=== PATIENT | female | born 1960 | race Caucasian/White ===

== ENCOUNTER 2016-10-25 09:58 | Outpatient (CLI) | payer MEDICARE, OTHER ==
--- NOTE | 2016-10-29 07:28 | Mammography Report ---
DIGITAL BILATERAL SCREENING MAMMOGRAM: 10/25/2016 CLINICAL HISTORY: A 56-year-old female in for routine screening mammogram. Patient has no family hi story of breast cancer. Patient has had no prior breast surgeries. COMPARISON: 07/11/2010, 07/21/2012, 09/06/2015 TECHNIQUE: Craniocaudad and oblique lateral views of each breast were obtained with [employer] digital mammography. FINDINGS: Breasts are almost entirely composed of fat. Several benign-appearing calcifications are once again seen in the upper half of the left breast. They are minimally progressive as compared to preceding exams but still maintain their benign configuration. No significant masses are noted in the breasts. IMPRESSION: BREASTS APPEAR RADIOGRAPHICALLY BENIGN. BIRADS 2 - BENIGN. RECOMMENDATIONS: Annual bilateral screening mammography. STANDARD QUALIFYING STATEMENTS 1. This examination was reviewed with the aid of Computer-Aided Detection (CAD). 2. A negative or benign imaging report should not delay biopsy if clinically suspicious findings are present. Consider surgical consultation if warranted. More than 5% of cancers are not identified by i maging. 3. Dense breasts may obscure an underlying neoplasm. JOB #: [id number] EXT JOB #:[id number]
== END 2016-10-25 09:59 | disposition home or self-care (01) ==
LOC: DI 09:58
PROVIDERS: ATTEND Family Medicine
DX: Z12.31 Encounter for screening mammogram for malignant neoplasm of breast (principal)
CPT/HCPCS: 77067

== ENCOUNTER 2017-05-22 09:30 | Outpatient (CLI) | payer MEDICARE, OTHER | END 2017-05-22 23:59 | LOC: DI 09:30 | PROVIDERS: ATTEND Internal Medicine Hematology & Oncology | DX: C90.00 Multiple myeloma not having achieved remission (principal) | CPT/HCPCS: 94010 ==

== ENCOUNTER 2017-10-29 16:15 | Inpatient (IN) | payer MEDICARE, OTHER ==
--- NOTE | 2017-10-29 18:42 | ED Physician Documentation ---
PD HPI ABD PAIN - Stated complaint Stated Complaint: ABD PX - Chief complaint Chief Complaint: Abd Pain - History obtained from History obtained from: Patient - History of Present Illness Timing - onset: How many days ago (few) Timing - duration: Days (few) Timing - details: Gradual onset, Still present (has had SBO intermittently, last in Jul treated with meds/nonsurgical. Has seen surgery at and they plan to do surgery to remove strictures next month or so. Seen in [facility] clinic today and had plain xray showing likely abstruction again.) Quality: Cramping, Aching, Fullness/distended Location: All over / everywhere Improved by: Vomiting Worsened by: Eating Associated symptoms: Nausea, Vomiting, Constipation (has not had BM the past 3 days), Loss of appetite. No: Fever, Diarrhea Similar symptoms before: Diagnosis (SBO due to strictures and adhesions secondary to surgery and RT.) Review of Systems Constitutional: denies: Fever, Chills Nose: denies: Rhinorrhea / runny nose, Congestion Throat: denies: Sore throat Respiratory: denies: Cough GI: reports: Abdominal Pain, Abdominal Swelling, Nausea, Vomiting. denies: Diarrhea, Bloody / black stool : denies: Dysuria, Frequency Skin: denies: Rash, Lesions Musculoskeletal: denies: Neck pain, Back pain Neurologic: reports: Generalized weakness. denies: Focal weakness, Numbness Endocrine: denies: Weight loss Immunocompromised: denies: Immunocompromised PD PAST MEDICAL HISTORY - Past Medical History Cardiovascular: Hypertension Respiratory: Shortness of breath Endocrine/Autoimmune: None GI: Other : None HEENT: None Psych: None Musculoskeletal: Fatigue, Chronic back pain Derm: Other - Past Surgical History Past Surgical History: Yes General: Colonoscopy /LVN LPN: Tubal ligation - Present Medications Home Medications: Ambulatory Orders Medication Instructions Recorded Confirmed Metoprolol Succinate [Toprol Xl] 50 mg PO DAILY PM 03/08/13 10/06/17 Multivitamin [Multivitamins] 1 each PO DAILY 03/08/13 10/06/17 valACYclovir [Valtrex] 500 mg PO BID 03/08/13 10/06/17 oxyCODONE [Roxicodone] 5 - 10 mg PO Q6HR PRN 05/10/13 10/06/17 Atorvastatin Calcium [Lipitor] 20 mg PO DAILY 12/14/13 10/06/17 Zinc Sulfate 280 mg PO DAILY 12/14/13 10/06/17 Sertraline HCl [Zoloft] 75 mg PO QPM 02/21/14 10/06/17 Cyanocobalamin/Folic Acid [Vitamin 1,000 mcg ORAL DAILY 09/05/14 10/06/17 O29-Eeyoo Acid Tablet] Ascorbic Acid [C-1000] 500 mg PO DAILY 02/20/15 10/06/17 Folic Acid 1 mg PO DAILY 02/20/15 10/06/17 LORazepam [Ativan] 0.1 - 1 mg PO Q6HR PRN 02/20/15 10/06/17 Ondansetron HCl [Zofran] 8 mg PO Q8HR PRN 02/20/15 10/06/17 Sulfamethoxazole/Trimethoprim 1 each PO DAILY 02/20/15 10/06/17 [Bactrim Ds Tablet] Cholecalciferol (Vitamin D3) 2 tab PO DAILY 06/07/15 10/06/17 [Vitamin D-3] Morphine Sulfate [Ms Contin] 30 mg PO Q12H 11/13/15 10/06/17 Dexamethasone [Decadron] 5 mg PO ONCE 02/05/16 10/06/17 Albuterol Sulf [Ventolin Hfa 2 puffs INH Q4HR PRN 04/22/16 10/06/17 Inhaler] Diphenoxylate/Atropine [Lomotil] 2.5 mg PO 5XD PRN 09/16/16 10/06/17 Lisinopril 10 mg PO DAILY 09/16/16 10/06/17 predniSONE [Prednisone] 7.5 mg PO DAILY MDD 6/5 taper in 11/11/16 10/06/17 place Morphine Sulfate 1 - 2 tab PO Q4H PRN 04/07/17 10/06/17 Ciprofloxacin HCl [Cipro] 500 mg PO BID MDD x 7 days, RX 10/15/17 10/15/17 - Allergies Allergies/Adverse Reactions: Allergies Allergy/AdvReac Type Severity Reaction Status Date / Time ceftazidime Allergy Rash Verified 05/07/14 23:41 doxorubicin HCl pegylated Allergy Hives Verified 05/07/14 23:41 lipo... * [From Doxil] doxycycline Allergy Rash Verified 05/07/14 23:41 acetaminophen [From Vicodin] AdvReac Nausea Verified 05/07/14 23:41 hydrocodone bitartrate * AdvReac Nausea Verified 05/07/14 23:41 [From Vicodin] adhesive tape Allergy Rash Uncoded 05/07/14 23:41 - Social History Does the pt smoke?: No Smoking Status: Never smoker Does the pt drink ETOH?: No Does the pt have substance abuse?: No - Family History Family history: reports: Non contributory - Immunizations Immunizations are current?: Yes - POLST Patient has POLST: Yes POLST Status: Full Code PD ED PE NORMAL - Vitals Vital signs reviewed: Yes - General General: Alert and oriented X 3, Well developed/nourished - HEENT HEENT: Atraumatic, PERRL (nonicteric), Moist mucous membranes, Pharynx benign - Neck Neck: Supple, no meningeal sign, No adenopathy - Cardiac Cardiac: RRR, No murmur - Respiratory Respiratory: Clear bilaterally - Abdomen Abdomen: No organomegaly, Other (distended with hyperactive BS, general tenderness and firmness. no hernias. ) - Female Female : Deferred - Rectal Rectal: Deferred - Back Back: No CVA TTP - Derm Derm: Normal color - Extremities Extremities: No deformity, No tenderness to palpate, Normal ROM s pain, No edema , No calf tenderness / cord - Neuro Neuro: Alert and oriented X 3, No motor deficit, Normal speech Results - Vitals Vitals: Vital Signs - 24 hr 10/29/17 16:24 Temperature 36.5 C Heart Rate 79 Respiratory 18 Rate Blood Pressure 118/82 H O2 Saturation 98 Oxygen O2 Source Room air - Labs Labs: Laboratory Tests 10/29/17 10/29/17 10/29/17 19:30 19:30 19:30 WBC 11.7 H RBC 3.64 L Hgb 11.1 L Hct 35.2 L MCV 96.7 MCH 30.7 MCHC 31.7 L RDW 17.6 H Plt Count 633 H MPV 6.7 L Neut # 7.1 H Lymph # 3.2 [place] # 1.1 H Eos # 0.2 Baso # 0.1 Absolute Nucleated RBC 0.00 Nucleated RBC % 0.0 Sodium 133 L Potassium 3.6 Chloride 104 Carbon Dioxide 22 Anion Gap 7.0 BUN 18 Creatinine 0.9 Estimated GFR (MDRD) 64 L Glucose 88 Lactic Acid 0.9 Calcium 8.5 Total Bilirubin 0.6 AST 15 ALT 12 Alkaline Phosphatase 38 L Total Protein 6.4 L Albumin 3.5 Globulin 2.9 Albumin/Globulin Ratio 1.2 Lipase 69 H - Rads (name of study) abd CT Radiology: Prelim report reviewed (small bowel obstruction with stricture in mid abd. ), EMP read contemporaneously PD MEDICAL DECISION MAKING - ED course Complexity details: reviewed results (bowel obstruction. Hospitalist/[facility] clinic provider had talked with and they did not have beds, so directed initial treatment to be here and then transfer for surgery if not improved nonsurgically. ), considered differential, d/w patient Departure - Departure Disposition: 66 [facility] DC/Xfer Clinical Impression: Small bowel obstruction, partial Abdominal pain Qualifiers: Abdominal location: generalized Qualified Code(s): R10.84 - Generalized abdominal pain Condition: Stable Discharge Date/Time: 10/29/17 21:28
[2017-10-29] MEDS ORDERED: ONDANSETRON 4 MG/2 ML VIAL IVP STA (19:03)
[2017-10-29] MEDS ORDERED: SODIUM CHLORIDE 0.9% 1,000 ML IV ONE ×2 (19:03→19:05)
[2017-10-29] MEDS ORDERED: MORPHINE 10 MG/ML VIAL IVP STA (19:04)
[2017-10-29 19:41] LABS: BASOPHILS # (AUTO) 0.1 10^3/uL (0.0-0.1); BASOPHILS % (AUTO) 0.8 %; EOSINOPHILS # (AUTO) 0.2 10^3/uL (0.0-0.7); EOSINOPHILS % (AUTO) 1.3 %; HGB - HEMOGLOBIN 11.1 g/dL (12.0-16.0); LYMPHOCYTES # (AUTO) 3.2 10^3/uL (1.5-3.5); LYMPHOCYTES % (AUTO) 27.7 %; MEAN CORPUSCULAR HEMOGLOBIN 30.7 pg (27.0-31.0); MEAN CORPUSCULAR HGB CONC 31.7 g/dL (32.0-36.0); MEAN CORPUSCULAR VOLUME 96.7 fL (81.0-99.0); MEAN PLATELET VOLUME 6.7 fL (7.9-10.8); MONOCYTES # (AUTO) 1.1 10^3/uL (0.0-1.0); MONOCYTES % (AUTO) 9.5 %; NEUTROPHILS # (AUTO) 7.1 10^3/uL (1.5-6.6); NEUTROPHILS % (AUTO) 60.7 %; PLT - PLATELET COUNT 633 10^3/uL (130-450); RED BLOOD COUNT 3.64 10^6/uL (4.20-5.40); RED CELL DISTRIBUTION WIDTH 17.6 % (12.0-15.0); WHITE BLOOD COUNT 11.7 x10^3/uL (4.8-10.8)
[2017-10-29 19:52] LABS: ALBUMIN 3.5 g/dL (3.2-5.5); ALBUMIN/GLOBULIN RATIO 1.2 (1.0-2.2); BILIRUBIN,TOTAL 0.6 mg/dL (0.2-1.0); CALCIUM 8.5 mg/dL (8.5-10.3); CREATININE 0.9 mg/dL (0.4-1.0); TOTAL PROTEIN 6.4 g/dL (6.7-8.2)
[2017-10-29] MEDS ORDERED: LIDOCAINE VISCOUS 2% 15 ML UDC MM STA (20:03)
[2017-10-29] MEDS ORDERED: OXYMETAZOLINE NASAL SPRAY NAS STA (20:03)
[2017-10-29] MEDS ORDERED: LIDOCAINE JELLY 2% 5 ML TUBE TOP STA (20:03)
--- NOTE | 2017-10-29 20:26 | CT Report ---
EXAM: CT ABDOMEN AND PELVIS EXAM DATE: 10/29/2017 07:43 PM. CLINICAL HISTORY: Abd bloating and vomiting. COMPARISONS: 07/30/2017. TECHNIQUE: Routine helical CT imaging was performed through the abdomen and pelvis. IV contrast: No. Enteric contrast: No. Reconstructions: Coronal and sagittal. In accordance with CT protocol optimization, one or more of the following dose reduction techniques w ere utilized for this exam: automated exposure control, adjustment of mA and/or KV based on patient s ize, or use of iterative reconstructive technique. FINDINGS: Lung Bases: Unremarkable. Liver: Normal in size and contour. Gallbladder/Bile Ducts: Unremarkable. Spleen: Normal in size. Pancreas: Normal. Adrenal Glands: Normal. Kidneys: There is a 2 mm lower pole left kidney stone. No hydronephrosis bilaterally. Peritoneal Cavity/Bowel: The stomach and duodenum appear normal in caliber. There are more multiple m arkedly dilated small bowel loops with small bowel air-fluid level. There is an anterior right mid ab domen small bowel loop measuring up to 5.1 cm in diameter which previously measured 6.6 cm in diamete r. Overall, the degree of small bowel dilation is decreased. There is a thickened segment of small minerva wel in the right central abdomen on series 3 image 43. This segment of bowel demonstrates luminal osmel rowing and measures 4-5 cm in length. No free air or abscess. Pelvic Organs: Urinary bladder appears unremarkable. Vasculature: There is moderate atherosclerotic vascular calcification. Bones: There are compression fractures of T11, L1, L2, and L3 without significant interval change. Other: None. IMPRESSION: 1. Dilated small bowel loops with a small bowel stricture in the right central abdomen. The degree of small bowel dilation is less when compared to 07/30/2017. 2. No bowel perforation or abnormal fluid collection. 3. Nonobstructing left kidney stone. 4. Multiple compression fractures of the spine, unchanged. [facility] Referring Provider Line: [phone] SITE ID: [id number]
[2017-10-29] MEDS ORDERED: ONDANSETRON ODT 4 MG TABLET TL PRN (20:32)
[2017-10-29] MEDS ORDERED: SODIUM CHLORIDE FLUSH 0.9% 10 ML SYRINGE IVP PRN (20:32)
--- NOTE | 2017-10-29 21:44 | XRAY Report ---
EXAM: CHEST RADIOGRAPHY EXAM DATE: 10/29/2017 09:29 PM. CLINICAL HISTORY: NG tube placement. COMPARISON: None. TECHNIQUE: 1 view. FINDINGS: Lungs/Pleura: There is a calcified granuloma in the right upper lobe. Otherwise lungs clear. No pneum othorax. Mediastinum: Within exam limitations, the cardiomediastinal contour is normal. Other: Gastric tube tip is in the mid stomach. IMPRESSION: Gastric tube tip in mid stomach [facility] Referring Provider Line: [phone] SITE ID: [id number]
--- NOTE | 2017-10-29 21:44 | XRAY Preliminary Report ---
Exam: XR CHEST FOR LINE PLACEMENT IMPRESSION: Gastric tube tip in mid stomach [facility] SITE ID: [id number]
[2017-10-29] MEDS: MORPHINE 2 MG/ML SYRINGE IVP PRN ×2 (21:54→23:36)
[2017-10-29] MEDS: SODIUM CHLORIDE 0.9% 1,000 ML IV SCH (21:56)
[2017-10-29] MEDS: METOPROLOL SUCCINATE 25 MG TABLET PO SCH (22:00)
[2017-10-29] MEDS: SERTRALINE 50 MG TABLET PO SCH (22:00)
[2017-10-29] MEDS: ONDANSETRON 4 MG/2 ML VIAL IVP PRN (23:38)
[2017-10-30] MEDS: MORPHINE PCA 50 MG IV PRN ×4 (00:22→22:32)
[2017-10-30] MEDS: SODIUM CHLORIDE FLUSH 0.9% 10 ML SYRINGE IVP SCH ×4 (00:47→23:47)
[2017-10-30] MEDS: ONDANSETRON 4 MG/2 ML VIAL IVP PRN (06:41)
[2017-10-30] MEDS: SODIUM CHLORIDE 0.9% 1,000 ML IV SCH (06:41)
[2017-10-30] MEDS: PANTOPRAZOLE 40 MG VIAL IVP SCH (06:41)
[2017-10-30] MEDS: POLYETHYLENE GLYCOL 3350 17 GM PACKET PO SCH (07:54)
--- NOTE | 2017-10-30 09:05 | XRAY Report ---
SUPINE ABDOMEN: 10/30/2017 CLINICAL INDICATION: Bowel obstruction followup. FINDINGS: Supine view of the abdomen demonstrates a nasogastric tube terminating in the stomach. There has been slight improvement in distal small bowel dilatation. No abnormal calcifications are appreciated overlying either renal shadow. IMPRESSION: SLIGHT INTERVAL IMPROVEMENT IN DISTAL SMALL BOWEL DILATATION. NASOGASTRIC TUBE TERMINATING IN THE STOMACH. TD: 10/30/2017 08:42
[2017-10-30] MEDS: ENOXAPARIN 40 MG/0.4 ML SYRINGE SUBQ SCH (09:19)
--- NOTE | 2017-10-30 09:40 | HISTORY & PHYSICAL EXAMINATION ---
DATE OF SERVICE: 10/29/2017 Physician: Radha Young MD PRIMARY CARE PROVIDER: Dr. Sadie Bingham. ONCOLOGIST: Dr. Leighton Lorenz. ADMITTING PROVIDER: Dr. Radha Young. CHIEF COMPLAINT: Nausea, vomiting, abdominal pain in a patient with known recurrent small-bowel obstructions. HISTORY OF PRESENT ILLNESS: The patient is a very unfortunate 57-year-old female who is suffering the complications of a very complicated past medical history. She has had multiple myeloma with treatment, hypogammaglobulinemia, and has lfyxm-dzogmi-vvre disease , which has resulted in long-term steroid use after being on drugs such as cyclosporine, tacrolimus, sirolimus. She is still getting active therapy for her multiple myeloma and is followed by Dr. Leighton Lorenz. While being treated for her multiple myeloma, she developed symptoms of nausea, vomiting, and abdominal pain in September 2016. She was diagnosed as having a short segment of inflamed bowel in the small bowel resulting in partial small-bowel obstruction. The patient said that she has never been hospitalized for bowel obstructions up until now, today. She would have an infrequent episode of nausea, vomiting, and abdominal pain, no flatus, and it would gradually resolve if she stopped eating. Usually it would take 2 days, and at the very most it would take 4 days to resolve on its own. She has never developed fever , chills, or bloody diarrhea with this. The episodes would happen infrequently enough that it did not limit her life very much, but in the last 6 months she feels like she is having recurrent episodes more and more frequently, with less and less downtime of good days. She laments that she has had episodes on , , and s . She almost laughs and says it is happening on all of the major holidays. With this current episode, it started as usual. Nausea, generalized epigastric to mid abdominal pain. Emesis. No bowel movement, but she is able to have flatus. By day 4, however, it still had not gone away and seemed to be getting worse. This is, by far, the longest it has ever been and definitely the most painful. She is in the process of being evaluated by [facility] to have an elective lysis of adhesion with possible ileostomy; but she is awaiting authorization from her insurance company for all of this to happen. She went to the [facility] today and was evaluated by BRENDA Myers. KUB was done. She has multiple dilated small loops in the right lower quadrant compatible with small-bowel obstruction. This was not compared to any other previous films. Because the patient appeared to be worse than usual, she was sent to the emergency room. The emergency room CAT scan shows stomach and duodenum to be normal. She has more multiple, markedly dilated small-bowel loops with small-bowel air-fluid levels than she did 07/30/2017. There is an anterior right mid abdominal small-bowel loop measuring up to 5.1 cm in diameter which was previously 6.6 cm, but overall the degree of small-bowel dilation is worse. There are thickened segments of small bowel in the right central abdomen. This segment of bowel also shows luminal narrowing and measures 4-5 cm in length. No free air or abscesses. Incidentally, she has a left pole left kidney stone that is 2 mm, moderate atherosclerotic vascular calcifications; and compression fractures of T11, L1, L2, and L3 without any interval change from before. She does not have a fever, where her temperature is 36.5 and her white cell count, while elevated, is better than it was in September 2017. Today she is 11.7, and before she was 17.1. She is now admitted for small-bowel obstruction. BRENDA Myers, has already spoken to [facility]. They recommend that we keep the patient here, put an NG in her, and wait it out. If it looks like she is going to have to go to surgery, then they would reconsider and take her in transfer for the planned surgery that now becomes urgent as opposed to elective. The patient says that she just finished antibiotics with Cipro and Flagyl for this most recent bout. She also states that she takes her medicines with small sips of water, says she still manages to keep her MS Contin and her other drugs, such as sertraline, metoprolol, and lisinopril, down. She has learned the trick. PAST MEDICAL HISTORY 1. IgG kappa multiple myeloma diagnosed in September 2011. Therapies have included RVD, Velcade/Doxil/dexamethasone, carfilzomib/Cytoxan/dexamethasone, VRD PACE, and then transplant therapy. She did an autologous bone marrow transplant in August 2012. She failed that and underwent an HLA matched unrelated donor stem cell transplant 11/17/2012. She is currently on daratumumab/Decadron since February 2016. Achieved initial serologic remission. 2. 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 It has involved her skin, mouth, and stomach. Treatment has included cyclosporine, prednisone, dexamethasone, budesonide, beclomethasone, tacrolimus, and sirolimus. The patient says that, other than the prednisone, she is not taking anything else for her qgcsn-ohcewv-tagq disease. It is felt that her scdyl-poeoih-ezih disease is what has caused her bowel adhesions and the multiple small-bowel obstructions, apparently. 3. Multiple myeloma-related compression fractures. She is on MS Contin 30 mg p.o. q.12 hours and has been stable with her use since 2012. She occasionally takes oxycodone for breakthrough pain. This has resulted in severe chronic back pain. 4. History of iron and B12 deficiencies. Used to require quite a bit of supplement. That has resolved. 5. Osteopenia. No biphosphate infusions due to dental issues. 6. Streptococcus pneumonia with bacteremia in January 2013. 7. MRSA bacteremia in August 2012. 8. Hypertension. 9. Pulmonary embolism in 2011. 10. Hyperlipidemia. 11. Hepatitis A during childhood. 12. G2, P2, status post tubal ligation in 1985. 13. Gastroesophageal reflux disease. 14. Cataracts. 15. Mild anemia and thrombocytopenia from antibody reaction due to her transplant. 16. Intermittent acute kidney injury. Baseline creatinine is 0.9, 0.8. At times with dehydration and drugs, creatinine will creep up to 1.1-1.3. Currently stable at 0.9. MEDICATION ALLERGIES 1. CEFTAZIDIME, WHICH CAUSES A RASH. 2. DOXORUBICIN GIVES HER HIVES. 3. DOXYCYCLINE GIVES HER A RASH. 4. ACETAMINOPHEN GIVES HER NAUSEA. 5. HYDROCODONE GIVES HER NAUSEA. 6. ADHESIVE TAPE WILL GIVE HER A RASH. HOME MEDICATIONS 1. Valacyclovir 500 mg p.o. b.i.d. for prophylaxis since 2011. 2. Bactrim double strength p.o. daily for prophylaxis since 2011. 3. Prednisone 7.5 mg p.o. daily. 4. Oxycodone 5 mg tablet 1-2 tablets every 6 hours as needed for pain. 5. Zinc sulfate 280 mg daily. 6. Sertraline 75 mg daily. 7. Zofran 8 mg p.o. q.8 hours p.r.n. nausea. 8. A multivitamin daily. 9. MS Contin 30 mg p.o. q.12 hours. 10. Metoprolol succinate 50 mg p.o. daily in the evening. 11. Lisinopril 10 mg daily. 12. Ativan 0.5-1 mg tablet every 6 hours as needed for anxiety. 13. Folic acid 1 mg daily. 14. Lomotil 2.5 mg p.o. up to 5 times a day as needed for diarrhea. 15. A multivitamin with B12, folic acid 1000 mcg oral daily. 16. Vitamin D 2000 international units 2 tablets daily. 17. Lipitor 20 mg daily. 18. Vitamin C one 500 mg tablet daily. 19. Ventolin HFA inhaler 2 puffs every 4 hours as needed for asthma. SOCIAL HISTORY: She currently lives in her own home. Mom moved in with her about a year ago. Prior to mom moving in with her, her daughter lived with her for awhile as well. It has worked out okay. She has hired in-home support to take care of her mom 5 days a week. The relationship is good, and it is not stressing her out. 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 She has not worked in the adult family home since 2011. She has been twice. Her power of user acceptance tester is her oldest daughter, but she thinks that the actual time spent on the last power of user acceptance tester has run out. She will need to do a new one, but she is telling me that she is her advocate. She started smoking at the age of 13 and quit in 2008 and was a [id number] smoker. She never had a problem with alcohol abuse and rarely drinks. She has never done recreational substance abuse and specifically has never done cannabis, cocaine, heroin, LSD, methamphetamines. She describes herself as still independent. She drives, bathes herself, feeds herself, pays her own bills, does light housework around the house. In between episodes, the only thing that limits her is her back pain, so she cannot lift a lot of things or do a lot of heavy work, but she feels that she can lead a normal life in spite of all of this. FAMILY HISTORY: Mom is in her 90s and has had some small strokes, so she is a little forgetful and needs a little bit of help. Dad at age 51 of myocardial infarctions. Her brothers are completely healthy. She has no sisters. Her 2 daughters are completely healthy. REVIEW OF SYSTEMS CONSTITUTIONAL: At this point, she does not have any constitutional complaints of unexpected weight changes, fevers, sweats, but her quality of life is markedly diminished in the last 6 months. She is understandably frustrated that she feels the ball has been dropped in her case. Although she has been seen by GI at , somehow things have not moved forward, and she is just suffering more and more from her abdominal pain. EARS, NOSE, AND THROAT: She has problems with her teeth, and as such, foods can bother her with regard to chewing. In the past, she has had thrush, but right now there are no problems with swallowing, mouth pain. She denies blurred vision, headaches, change in hearing. No facial dysesthesia. PULMONARY: She denies coughing, wheezing, shortness of breath, chest congestion. Has not had to use her inhaler in quite some time. CARDIAC: Denies PND, orthopnea, chest pain, palpitations. GASTROINTESTINAL: As above. GENITOURINARY: Occasional incontinence but no urgency, frequency, dysuria, hematuria. JOINTS: Back pain definitely limits her. Occasionally, she has stiff hips and knees, but there are no new effusions. No new joint pain. SKIN: She used to bruise much more easily in the past, depending on which immune-modulating drugs she was on. She still has a tendency to bruise, but it has improved much better as her steroids have been tapered. She used to have chronic zgsbz-ckkzjq-mrpw of her skin, and now it is mainly GI tract that they feel is involved. PSYCHIATRIC: Frustration more than anything else. Denies suicidal ideation, hallucinations. Depression is kind of a low-grade chronic thing for her and controlled with Zoloft. Even though chronic pain is part of her daily life, she has managed to have a decent quality of life in spite of it. ENDOCRINE: She denies polyuria, polydipsia, polyphagia. CENTRAL NERVOUS SYSTEM: Denies seizure, syncope, memory loss. She denies any focal deficits. PHYSICAL EXAMINATION She is seen in the emergency room. I am seeing her after she has already had her CT, NG placed, some antiemetics and IV pain medications. She is still having waves of abdominal pain with spasming that causes her to almost cry out. The NG tube is also driving her crazy. She says that she knows it is crazy, but she can almost feel the tip stabbing her anterior abdominal wall, and it is causing quite a bit of stabbing epigastric pain. VITAL SIGNS: Temperature is 36.5, pulse is 76, blood pressure is 137/73, respiration is 18. She is 99% on room air. GENERAL: On general review, she is a thin, alert, oriented white female who is miserable from pain but looks stated age. HEAD AND NECK: Dry lips, NG in the right naris. Pupils reactive. Sclerae nonicteric. No facial asymmetry. Slightly nasal tone of voice because of the NG in place, but speech is normal. Neck is supple without goiter or adenopathy. LUNGS: Clear to auscultation and percussion without crackles, rhonchi, or wheezing, and there is no increased respiratory effort to talk to me. CARDIAC: Regular rate and rhythm with no murmurs, rubs, or gallops. ABDOMEN: Distended, infrequent high-pitched bowel sounds. Diffusely tender but more in the right lower quadrant than the left lower quadrant. No rebound or guarding. EXTREMITIES: No clubbing, cyanosis, or edema; and overall she has decreased muscle mass in the arms, legs. NEUROLOGIC: She is alert and oriented to person, place, and time. Cranial nerves II-XII intact. No focal deficits. CT of the abdomen and KUB from today already discussed. LABORATORY DATA: White cell count is 11.7. Hemoglobin 11.1. It is down from her usual 13.1. Hematocrit is 35.2. Platelets are 633 and about stable. She varies from 588 to 616. She has a slight left shift. Sodium 133. Usual sodium 135. Potassium is 3.6. Anion gap is 7. BUN 18, creatinine 0.9, glucose 88. Lactic acid 0.9. Lipase 69. ASSESSMENT AND PLAN 1. Recurrent small-bowel obstruction, partial. Source of it is felt to be adhesions from uhhnt-bvbape-fxde disease. She is being monitored by her oncologist and has had consultation at [facility]. Current plan is for elective surgery down the road if she does not become urgently or emergently obstructed now. 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 Plan: a. Admit the patient to medical/surgical status, acute inpatient. b. Attestation: The patient will be admitted less than 96 hours. c. Nasogastric tube to low intermittent suction. d. Daily KUB, to follow any response. e. If after 48 hours she still has not responded, we may reconsider and ask for transfer to [facility]. In the meantime, if she spikes a fever or drops her pressure and becomes more symptomatic from this bowel obstruction, she will be placed on IV antibiotics, and will consider immediate transfer. f. I hesitate to involve our local surgeons. This case has already been looked at locally, and they feel that she is beyond the ability for them to take care of her here. Since we have a plan, and a surgeon has been contacted, I will hold off on consulting surgery here. g. Keep n.p.o. except for ice chips and medicines with sips and nasogastric tube clamped. h. Pain will be monitored and morphine used as well as Zofran, Phenergan, Compazine. 2. Hypertension. Currently well controlled in the emergency room. It is amazing that she has been able to keep her medications down. She says she has learned the hard way over the last few years of just waiting it out, taking a small sip of water with her pills, and doing nothing for a few hours until she knows the medicines are going to stay down. Here, I will give her her metoprolol p.o. If it looks like she keeps on vomiting, or it is not working, will switch her metoprolol to IV and her lisinopril to enalapril IV. In the meantime, no change in doses. 3. Chronic dkbsu-hsogmc-jjrn disease. Currently, only on steroids, down to a tapering of 7.5 mg p.o. daily of prednisone. Change to Solu-Medrol 40 mg IV push daily. 4. History of pulmonary embolism in 2011. As such, deep venous thrombosis prophylaxis is definitely to be considered. Because of her high risk, she will be on Lovenox 40 mg subcutaneously daily. 5. Chronic pain syndrome. She has been stable with her use of MS Contin in the past. At this time, I will switch her to IV morphine; 2 mg IV q.2 hours will be ordered for as -needed pain. Consider increasing dose if this is ineffective. 6. History of gastroesophageal reflux disease. Protonix IV. 7. FULL CODE STATUS. She says that she has not considered do not resuscitate status. So far, she has responded to all of her treatments, and she is alive far longer than she thought she would be, so she still wants everything done. TD: 10/29/2017 22:27 MTDD
[2017-10-30] MEDS ORDERED: METHYLNALTREXONE 12 MG/0.6 ML VIAL SUBQ ONE (13:58)
[2017-10-30] MEDS ORDERED: SODIUM CHLORIDE 0.9% 1,000 ML IV SCH (13:59)
--- NOTE | 2017-10-30 14:01 | PROVIDER PROGRESS NOTE ---
Subjective - Prog Note Date Prog Note Date: 10/30/17 Prog Note Time: 14:00 - Subjective Pt reports feeling: Improved Subjective: Karen states that she feels so much better than when she first presented to the ED. She requests that the NG tube comes out. She denies SOB, chest pain, N /V or a new cough. Current Medications - Current Medications Current Medications: Active Medications Enoxaparin Sodium (Lovenox) 40 mg SUBQ DAILY [facility] Last Admin: 10/30/17 09:19 Dose: 40 mg Sodium Chloride (Normal Saline 0.9%) 1,000 mls @ 50 mls/hr IV .Q20H [facility] Methylnaltrexone [place] (Relistor) 8 mg SUBQ ONCE ONE Stop: 10/30/17 13:59 Metoprolol Succinate (Toprol Xl) 50 mg PO HS [facility] Last Admin: 10/29/17 22:00 Dose: 50 mg Morphine Sulfate (Morphine) 2 mg IVP Q2H PRN PRN Reason: Pain 8 to 10 Last Admin: 10/29/17 23:36 Dose: 2 mg Morphine Sulfate/Sodium Chloride (Morphine Wholesale Representative (Use Wholesale Representative Order Set)) 50 mg IV INDUSTRIAL COOK PRN; Protocol PRN Reason: PAIN Last Admin: 10/30/17 07:29 Dose: 50 mg Ondansetron HCl (Zofran Inj) 4 mg IVP Q6HR PRN PRN Reason: Nausea / Vomiting Last Admin: 10/30/17 06:41 Dose: 4 mg Ondansetron HCl (Zofran Odt) 4 mg TL Q6HR PRN PRN Reason: Nausea / Vomiting Pantoprazole Sodium (Protonix) 40 mg IVP QDAC [facility] Last Admin: 10/30/17 06:41 Dose: 40 mg Polyethylene Glycol (Miralax) 17 gm PO DAILY [facility] Last Admin: 10/30/17 07:54 Dose: Not Given Sertraline HCl (Zoloft) 75 mg PO QPM [facility] Last Admin: 10/29/17 22:00 Dose: 75 mg Sodium Chloride (Normal Saline Flush 0.9%) 10 ml IVP PRN PRN PRN Reason: NEEDED PER PROVIDER ORDERS Last Admin: 10/30/17 06:42 Dose: 10 ml Sodium Chloride (Normal Saline Flush 0.9%) 10 ml IVP 0100,0900,1700 [facility] Last Admin: 10/30/17 09:20 Dose: 10 ml Metoprolol Succinate [Toprol Xl] 50 mg PO DAILY PM 03/08/13 Multivitamin [Multivitamins] 1 each PO DAILY 03/08/13 valACYclovir [Valtrex] 500 mg PO BID 03/08/13 Atorvastatin Calcium [Lipitor] 20 mg PO QPM 12/14/13 Zinc Sulfate 220 mg PO DAILY 12/14/13 Sertraline HCl [Zoloft] 75 mg PO QPM 02/21/14 Ascorbic Acid [C-1000] 500 mg PO DAILY 02/20/15 Folic Acid 1 mg PO DAILY 02/20/15 LORazepam [Ativan] 1 mg PO Q6HR PRN 02/20/15 Ondansetron HCl [Zofran] 8 mg PO Q8HR PRN 02/20/15 Sulfamethoxazole/Trimethoprim [Bactrim Ds Tablet] 1 each PO QPM 02/20/15 Cholecalciferol (Vitamin D3) [Vitamin D-3] 1,000 unit PO DAILY 06/07/15 Morphine Sulfate [Ms Contin] 30 mg PO Q12H 11/13/15 Dexamethasone [Decadron] 20 mg PO DAILY PRN 02/05/16 Albuterol Sulf [Ventolin Hfa Inhaler] 2 puffs INH Q4HR PRN 04/22/16 Lisinopril 10 mg PO QPM 09/16/16 predniSONE [Prednisone] 5 mg PO DAILY 11/11/16 Cyanocobalamin (Vitamin B-12) [Vitamin B-12] 1,000 mcg PO DAILY 10/30/17 Objective - Vital Signs/Intake & Output Reviewed Vital Signs: Yes Vital Signs: Vital Signs x48h Temp Pulse Resp BP Pulse Ox 10/30/17 13:00 16 10/30/17 12:00 16 10/30/17 11:00 16 10/30/17 10:00 14 10/30/17 09:00 16 10/30/17 08:00 16 10/30/17 07:51 36.7 C 64 16 96/66 97 10/30/17 06:49 14 Intake & Output: Intake & Output 10/27/17 10/28/17 10/29/17 10/30/17 23:59 23:59 23:59 23:59 Intake Total 1100 875 Output Total 200 Balance 1100 675 - Objective General Appearance: positive: No acute distress, Alert Eyes Bilateral: positive: Normal inspection, PERRL ENT: positive: ENT inspection nml, Pharynx nml, Pharyngeal erythema, Dry mucous membranes Neck: positive: Nml inspection, Thyroid nml, Trachea midline, Stiff neck Respiratory: positive: Chest non-tender, No respiratory distress, Other ( diminished.) Cardiovascular: positive: Regular rate & rhythm, No gallop, Decreased pulse(s) Peripheral Pulses: 1+ Radial (R), 1+ Radial (L) Abdomen: positive: Non-tender, Abnml bowel sounds, Other (hyper active in upper quadrants, soft, bloated.) Back: positive: Nml inspection Skin: positive: No rash, Warm, Dry Extremities: positive: Non-tender, Full ROM, Pedal edema (mild-dependent.) Neurologic/Psychiatric: positive: Oriented x3, CN's nml (2-12), Motor nml, Sensation nml, Weakness, Depressed mood/affect Reflexes: Bicep (R): 3+, Bicep (L): 3+, Ankle (R): 3+, Ankle (L): 3+ - Lab Results Fish Bones: 10/31/17 11:00 10/31/17 11:00 - Diagnostic Imaging Diagnostic Imaging Results: positive: Final report reviewed Diagnostic Imaging Comments: SUPINE ABDOMEN: 10/30/2017 CLINICAL INDICATION: Bowel obstruction followup. FINDINGS: Supine view of the abdomen demonstrates a nasogastric tube terminating in the stomach. There has been slight improvement in distal small bowel dilatation. No abnormal calcifications are appreciated overlying either renal shadow. IMPRESSION: SLIGHT INTERVAL IMPROVEMENT IN DISTAL SMALL BOWEL DILATATION. NASOGASTRIC TUBE TERMINATING IN THE STOMACH. ABX Reporting Has patient been on IV antibiotics over the past 48 hours?: No Assessment/Plan - Problem List (1) Small bowel obstruction, partial Impression: This is recurrent. The source is likely adhesions from tqpic-jm-mdmw disease. She is being followed by oncology, and has an upcoming consultation at . She is planned to undergo elective surgery if she does not become emergently obstructed in the mean time. Serial KUBs have been done and as per last imaging , the partial SBO is improved. She remains with an NG to suction with very little out put. Her family brought her in a Latte which she tolerated well. Based on the absence of nausea or vomiting and improved clinical condition, we will plan to discontinue the NG tube. Plan: Monitor condition and follow up imaging in the AM. (2) Abdominal pain Impression: The patient notes that she has chronic abdominal pain, and continues on a morphine INDUSTRIAL COOK pump while inpatient. She was given one dose of Relistor for this. She admits to +flatus and her abdominal exam is normal with the exception of mild bloating. Plan: Continue INDUSTRIAL COOK overnight and plan to wean in the AM. Qualifiers: Abdominal location: generalized Qualified Code(s): R10.84 - Generalized abdominal pain (3) Mlvas-rfdjob-eqiq disease affecting skin and bowel, grade 2 Impression: She is followed by oncology and takes chronic steroids for this, that she has been tapering down. These were on hold due to partial SBO while inpatient and will be resumed upon discharge. She is under the care of Dr. Lorenz, oncology and also has multiple myeloma that is treated with IgG kappa. She has been treated with daratumumab/decadron since 02/2016. Plan: Continue care and update oncology as needed. (4) Hypertension Impression: The patient has a history of this and is prescribed lisinopril and metoprolol at home. Today, she was a little low at 100/68 and this is likely due to her INDUSTRIAL COOK. Plan: Continue to hold oral meds and monitor VS. (5) Chronic pain syndrome Impression: The patient has a history of osteopenia causing chronic back pain, which she takes chronic long acting morphine for. The oral form is now on hold and she has been on a morphine INDUSTRIAL COOK. Plan: Continue to monitor pain.
[2017-10-30] MEDS: SERTRALINE 50 MG TABLET PO SCH (20:25)
[2017-10-30] MEDS: METOPROLOL SUCCINATE 25 MG TABLET PO SCH (20:35)
[2017-10-30] MEDS: MORPHINE 2 MG/ML SYRINGE IVP PRN (23:46)
[2017-10-31] MEDS: MORPHINE PCA 50 MG IV PRN (04:06)
[2017-10-31] MEDS: PANTOPRAZOLE 40 MG VIAL IVP SCH (06:19)
[2017-10-31] MEDS: SODIUM CHLORIDE FLUSH 0.9% 10 ML SYRINGE IVP SCH (07:54)
[2017-10-31] MEDS: ENOXAPARIN 40 MG/0.4 ML SYRINGE SUBQ SCH (09:28)
[2017-10-31] MEDS: POLYETHYLENE GLYCOL 3350 17 GM PACKET PO SCH (09:30)
--- NOTE | 2017-10-31 10:11 | XRAY Report ---
EXAM: ABDOMEN RADIOGRAPHY EXAM DATE: 10/31/2017 06:14 AM. CLINICAL HISTORY: Bowel obstruction followup. COMPARISON: 10/30/2017. 10/29/2017. TECHNIQUE: 1 view. FINDINGS: Bowel Gas Pattern: Interval removal of orogastric tube. Increased gaseous distention of small bowel w ith the small bowel loops largely centrally located. No portal venous gas or pneumatosis. Other: Lung bases are clear. Levoscoliosis of the lumbar spine. Degenerative changes. IMPRESSION: 1. Worsening small bowel dilatation. 2. Interval removal of orogastric tube. [facility] Referring Provider Line: [phone] SITE ID: [id number]
--- NOTE | 2017-10-31 10:11 | XRAY Preliminary Report ---
Exam: XR ABDOMEN 1 VIEW X-RAY IMPRESSION: 1. Worsening small bowel dilatation. 2. Interval removal of orogastric tube. [facility] SITE ID: [id number]
[2017-10-31] MEDS ORDERED: ONDANSETRON ODT 4 MG TABLET PO PRN (10:20)
[2017-10-31] MEDS ORDERED: LORazepam 0.5 MG TABLET PO PRN (10:20)
[2017-10-31] MEDS ORDERED: DEXAMETHASONE 4 MG TABLET PO PRN (10:20)
[2017-10-31] MEDS ORDERED: METHYLNALTREXONE 12 MG/0.6 ML VIAL SUBQ ONE (10:22)
[2017-10-31] MEDS ORDERED: ASCORBIC ACID CHEW 500 MG TABLET PO SCH (10:30)
[2017-10-31] MEDS ORDERED: MULTIVITAMIN TABLET PO SCH (10:30)
[2017-10-31] MEDS ORDERED: MORPHINE ER 15 MG TABLET PO SCH (10:30)
--- NOTE | 2017-10-31 10:31 | Discharge Plan ---
Discharge Plan Disposition: 01 Home, Self Care Condition: Good Diet: Regular Activity Restrictions: Activity as Tolerated Shower Restrictions: No Driving Restrictions: No Weight Bearing: Full Weight Instruction Topics: Obstruction Sm Bowel, Atelectasis Additional Instructions or Follow Up instructions: You were admitted for a SBO (small bowel obstruction), put on a morphine LOCATION ANALYST, had an NG tube to suction and your symptoms were managed. You improved and follow up imaging did not show a resolution of the obstruction, so general surgery was called. Dr. Aden reviewed the imaging and pointed out that the x- rays may be a late sign to wellness. Since you clinically were improved, future imaging will likely follow. You were given a medication called Relistor (a peripherally acting MU opioid receptor antagonists) and other uses include opioid induced constipation, and chronic non-cancer pain. I have found in my practice that this really makes a difference for the resolution of bowel obstructions. I wanted you to know the name of this drug for future use. I may have been more strict about your stay (length of stay), but I would LOVE for you to enjoy your family while they are in town. You should see your PCP within one week and they will get a copy of my discharge summary. No Smoking: If you smoke, Please STOP! Call for help. Follow-up with: Sadie Bingham MD [Primary Care Provider] -
--- NOTE | 2017-10-31 10:34 | DISCHARGE SUMMARY ---
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 Spoke with general surgery regarding discharge. HTN (hypertension) (I10) chronic, stable. 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 History of pulmonary embolism (Z86.711) -chronic, not suspected. Chronic pain (G89.29) -chronic, stable. Non-traumatic compression fracture of vertebral column (M48.50XA) -chronic, stable. GERD (gastroesophageal reflux disease) (K21.9)- chronic, stable. - HPI History of Present Illness: Karen Gonzales is a 57-year old female with a past medical history of IgG kappa multiple myeloma since 2011, chronic rafmm-fo-nzjh disease, compression fractures d/t MM, iron and vitamin B12 deficiencies, osteopenia, strep PNA with bacteremia in 2012, MRSA bacteremia, HTN, pulmonary embolism, hyperlipidemia, Hep A in childhood, G2, P2, status post tubal ligation, GERD, cataracts, anemia , thrombocytopenia, and KASSANDRA. She was diagnosed as having a short segment of inflamed bowel in the small bowel resulting in a partial SBO. The patient said that she has never been hospitalized for this until now. She would have an infrequent episode of nausea, vomiting, and abdominal pain, no flatus, and it would gradually resolve if she stopped eating. Usually it would take 2-4 days. She has never developed fever, chills, or bloody diarrhea with this. In the past 6 months she feels like she is having recurrent episodes more frequently and fewer good days. With this current episode, it started as usual. Nausea, generalized epigastric to mid abdominal pain, emesis, less flatus and by day 4 had become worse. She is in the process of being evaluated by the to have an elective lysis of adhesion with possible ileostomy; but she is awaiting authorization from her insurance company for all of this to happen. She was in the [facility] clinic today to see Charu Atkinson who ordered a KUB, which showed multiple dilated small loops in the RLQ compatible with a SBO. Given that her symptoms were much worse this time, she was sent directly to the ED. Once in the ED a CT showed multiple dilated small bowel loops with small bowel air fluid and overall the degree of dilation was much worse. Also noted was compression fractures of T11, L1, L2, and L3. She was found to have an elevated temperature of 36.5, elevated WBC count of 11.7. She will be admitted to inpatient for decompression using an NG tube to wall suction, pain control using a morphine FLEET ADMINISTRATOR and further serial imaging. - HOSPITAL COURSE Hospital Course: The following diagnoses were prevalent during this hospital stay: (1) Small bowel obstruction, partial This is recurrent. The source is likely adhesions from ivfvd-ym-xktw disease. She is being followed by oncology, and has an upcoming consultation at . She is planned to undergo elective surgery if she does not become emergently obstructed in the mean time. Serial KUBs have been done and as per last imaging , the partial SBO is improved. She remains with an NG to suction with very little out put. Her family brought her in a Latte which she tolerated well, then she was put on clear liquids, full liquids and a general diet this AM. All of which, she tolerated well. Based on the absence of nausea or vomiting and improved clinical condition, she was eligible for discharge. A phone call to Dr. Tristan Aden was made to review the case. In his opinion, it is safe to trust the physical exam findings and overall clinical well-being of the patient as the imaging is a late sign of improvement. (2) Abdominal pain The patient notes that she has chronic abdominal pain and chronic low back pain , and continued on a morphine FLEET ADMINISTRATOR pump while inpatient. She was given 2 doses of Relistor for this. She admits to +flatus and her abdominal exam is normal with the exception of mild bloating. She also admitted to moving her bowels and had formed stool. (3) Xihww-dcciik-exqi disease affecting skin and bowel, grade 2 She is followed by oncology and takes chronic steroids for this, that she has been tapering down. These were on hold due to partial SBO while inpatient and then resumed upon discharge. She is under the care of Dr. Lorenz, oncology and also has multiple myeloma that is treated with IgG kappa. She has been treated with daratumumab/decadron since 02/2016. (4) Hypertension The patient has a history of this and is prescribed lisinopril and metoprolol at home, which were resumed upon discharge. (5) Chronic pain syndrome The patient has a history of osteopenia causing chronic back pain, which she takes chronic long acting morphine for. The oral form was on hold while on a morphine FLEET ADMINISTRATOR, then her chronic oral medications were resumed at the time of discharge. Disposition: The patient was ambulatory, not requiring oxygen and her pain was being controlled at the time of discharge. She was not given any new mediations. She was anxious to be on her way due to her family visiting from another country and this was their last full day here. - ALLERGIES Allergies/Adverse Reactions: Allergies Allergy/AdvReac Type Severity Reaction Status Date / Time ceftazidime Allergy Rash Verified 05/07/14 23:41 doxorubicin HCl pegylated Allergy Hives Verified 05/07/14 23:41 lipo... * [From Doxil] doxycycline Allergy Rash Verified 05/07/14 23:41 acetaminophen [From Vicodin] AdvReac Nausea Verified 05/07/14 23:41 hydrocodone bitartrate * AdvReac Nausea Verified 05/07/14 23:41 [From Vicodin] adhesive tape Allergy Rash Uncoded 05/07/14 23:41 - MEDICATIONS Home Medications: Ambulatory Orders Medication Instructions Recorded Confirmed Metoprolol Succinate [Toprol Xl] 50 mg PO DAILY PM 03/08/13 10/30/17 Multivitamin [Multivitamins] 1 each PO DAILY 03/08/13 10/30/17 valACYclovir [Valtrex] 500 mg PO BID 03/08/13 10/30/17 Atorvastatin Calcium [Lipitor] 20 mg PO QPM 12/14/13 10/30/17 Zinc Sulfate 220 mg PO DAILY 12/14/13 10/30/17 Sertraline HCl [Zoloft] 75 mg PO QPM 02/21/14 10/30/17 Ascorbic Acid [C-1000] 500 mg PO DAILY 02/20/15 10/30/17 Folic Acid 1 mg PO DAILY 02/20/15 10/30/17 LORazepam [Ativan] 1 mg PO Q6HR PRN 02/20/15 10/30/17 Ondansetron HCl [Zofran] 8 mg PO Q8HR PRN 02/20/15 10/30/17 Sulfamethoxazole/Trimethoprim 1 each PO QPM 02/20/15 10/30/17 [Bactrim Ds Tablet] Cholecalciferol (Vitamin D3) 1,000 unit PO DAILY 06/07/15 10/30/17 [Vitamin D3] Morphine Sulfate [Ms Contin] 30 mg PO Q12H 11/13/15 10/30/17 Dexamethasone [Decadron] 20 mg PO DAILY PRN 02/05/16 10/30/17 Albuterol Sulf [Ventolin Hfa 2 puffs INH Q4HR PRN 04/22/16 10/30/17 Inhaler] Lisinopril 10 mg PO QPM 09/16/16 10/30/17 predniSONE [Prednisone] 5 mg PO DAILY 11/11/16 10/30/17 Cyanocobalamin (Vitamin B-12) 1,000 mcg PO DAILY 10/30/17 10/30/17 [Vitamin B-12] - PHYSICAL EXAM AT DISCHARGE General Appearance: positive: No acute distress, Alert Eyes Bilateral: positive: Normal inspection, PERRL ENT: positive: ENT inspection nml, Pharynx nml, No signs of dehydration Neck: positive: Nml inspection, Thyroid nml, No JVD, Trachea midline Respiratory: positive: Chest non-tender, No respiratory distress, Other ( diminished.) Cardiovascular: positive: Regular rate & rhythm, No gallop Peripheral Pulses: positive: 1+ Abdomen: positive: Non-tender, Nml bowel sounds, Guarding Back: positive: Nml inspection Skin: positive: No rash, Warm, Dry, Pallor Extremities: positive: Non-tender, Full ROM, No pedal edema Neurologic/Psychiatric: positive: Oriented x3, CN's nml (2-12), Motor nml, Sensation nml, Depressed mood/affect Reflexes: Bicep (R): 3+, Bicep (L): 3+ - LABS Result Diagrams: 10/31/17 11:00 10/31/17 11:00 - DIAGNOSTIC IMAGING Diagnostic Imaging Results: Final report reviewed Diagnostic Imaging Results Comments: SUPINE ABDOMEN: 10/29/2017 CLINICAL INDICATION: Pain, dehydration. FINDINGS: Supine view of the abdomen demonstrates multiple dilated, gas-filled small bowel loops in the right lower quadrant, compatible with small bowel obstruction. No abnormal calcifications are appreciated overlying either renal shadow. IMPRESSION: MULTIPLE DILATED SMALL BOWEL LOOPS IN THE RIGHT LOWER QUADRANT, COMPATIBLE WITH SMALL BOWEL OBSTRUCTION. EXAM: CT ABDOMEN AND PELVIS EXAM DATE: 10/29/2017 07:43 PM. CLINICAL HISTORY: Abd bloating and vomiting. COMPARISONS: 07/30/2017. TECHNIQUE: Routine helical CT imaging was performed through the abdomen and pelvis. IV contrast: No. Enteric contrast: No. Reconstructions: Coronal and sagittal. In accordance with CT protocol optimization, one or more of the following dose reduction techniques were utilized for this exam: automated exposure control, adjustment of mA and/or KV based on patient size, or use of iterative reconstructive technique. FINDINGS: Lung Bases: Unremarkable. Liver: Normal in size and contour. Gallbladder/Bile Ducts: Unremarkable. Spleen: Normal in size. Pancreas: Normal. Adrenal Glands: Normal. Kidneys: There is a 2 mm lower pole left kidney stone. No hydronephrosis bilaterally. Peritoneal Cavity/Bowel: The stomach and duodenum appear normal in caliber. There are more multiple markedly dilated small bowel loops with small bowel air- fluid level. There is an anterior right mid abdomen small bowel loop measuring up to 5.1 cm in diameter which previously measured 6.6 cm in diameter. Overall, the degree of small bowel dilation is decreased. There is a thickened segment of small bowel in the right central abdomen on series 3 image 43. This segment of bowel demonstrates luminal narrowing and measures 4-5 cm in length. No free air or abscess. Pelvic Organs: Urinary bladder appears unremarkable. Vasculature: There is moderate atherosclerotic vascular calcification. Bones: There are compression fractures of T11, L1, L2, and L3 without significant interval change. Other: None. IMPRESSION: 1. Dilated small bowel loops with a small bowel stricture in the right central abdomen. The degree of small bowel dilation is less when compared to 2017. 2. No bowel perforation or abnormal fluid collection. 3. Nonobstructing left kidney stone. 4. Multiple compression fractures of the spine, unchanged. SUPINE ABDOMEN: 10/30/2017 CLINICAL INDICATION: Bowel obstruction followup. FINDINGS: Supine view of the abdomen demonstrates a nasogastric tube terminating in the stomach. There has been slight improvement in distal small bowel dilatation. No abnormal calcifications are appreciated overlying either renal shadow. IMPRESSION: SLIGHT INTERVAL IMPROVEMENT IN DISTAL SMALL BOWEL DILATATION. NASOGASTRIC TUBE TERMINATING IN THE STOMACH. EXAM: ABDOMEN RADIOGRAPHY EXAM DATE: 10/31/2017 06:14 AM. CLINICAL HISTORY: Bowel obstruction followup. COMPARISON: 10/30/2017. 10/29/2017. TECHNIQUE: 1 view. FINDINGS: Bowel Gas Pattern: Interval removal of orogastric tube. Increased gaseous distention of small bowel with the small bowel loops largely centrally located. No portal venous gas or pneumatosis. Other: Lung bases are clear. Levoscoliosis of the lumbar spine. Degenerative changes. IMPRESSION: 1. Worsening small bowel dilatation. 2. Interval removal of orogastric tube. - FOLLOW UP Follow Up: Disposition: 01 Home, Self Care Condition: Good Diet: Regular Activity Restrictions: Activity as Tolerated Shower Restrictions: No Driving Restrictions: No Weight Bearing: Full Weight Instruction Topics: Obstruction Sm Bowel, Atelectasis Additional Instructions or Follow Up instructions: You were admitted for a SBO (small bowel obstruction), put on a morphine FLEET ADMINISTRATOR, had an NG tube to suction and your symptoms were managed. You improved and follow up imaging did not show a resolution of the obstruction, so general surgery was called. Dr. Aden reviewed the imaging and pointed out that the x- rays may be a late sign to wellness. Since you clinically were improved, future imaging will likely follow. You were given a medication called Relistor (a peripherally acting MU opioid receptor antagonists) and other uses include opioid induced constipation, and chronic non-cancer pain. I have found in my practice that this really makes a difference for the resolution of bowel obstructions. I wanted you to know the name of this drug for future use. I may have been more strict about your stay (length of stay), but I would LOVE for you to enjoy your family while they are in town. You should see your PCP within one week and they will get a copy of my discharge summary. - TIME SPENT Time Spent in Discharge (Minutes): 60
[2017-10-31] MEDS ORDERED: predniSONE 10 MG TABLET PO SCH (11:00)
[2017-10-31] MEDS ORDERED: valACYclovir 500 MG TABLET PO SCH (11:00)
[2017-10-31] MEDS ORDERED: FOLIC ACID 1 MG TABLET PO SCH (11:00)
[2017-10-31 11:08] LABS: BASOPHILS # (AUTO) 0.1 10^3/uL (0.0-0.1); BASOPHILS % (AUTO) 0.8 %; EOSINOPHILS # (AUTO) 0.2 10^3/uL (0.0-0.7); EOSINOPHILS % (AUTO) 1.9 %; HGB - HEMOGLOBIN 10.7 g/dL (12.0-16.0); LYMPHOCYTES # (AUTO) 2.2 10^3/uL (1.5-3.5); LYMPHOCYTES % (AUTO) 23.2 %; MEAN CORPUSCULAR HEMOGLOBIN 32.4 pg (27.0-31.0); MEAN CORPUSCULAR HGB CONC 33.5 g/dL (32.0-36.0); MEAN CORPUSCULAR VOLUME 96.5 fL (81.0-99.0); MEAN PLATELET VOLUME 6.6 fL (7.9-10.8); MONOCYTES # (AUTO) 1.1 10^3/uL (0.0-1.0); MONOCYTES % (AUTO) 11.8 %; NEUTROPHILS # (AUTO) 5.9 10^3/uL (1.5-6.6); NEUTROPHILS % (AUTO) 62.3 %; PLT - PLATELET COUNT 532 10^3/uL (130-450); RED CELL DISTRIBUTION WIDTH 17.3 % (12.0-15.0); WHITE BLOOD COUNT 9.5 x10^3/uL (4.8-10.8)
[2017-10-31 11:27] LABS: ALBUMIN 3.1 g/dL (3.2-5.5); ALBUMIN/GLOBULIN RATIO 1.1 (1.0-2.2); BILIRUBIN,TOTAL 0.4 mg/dL (0.2-1.0); CALCIUM 7.9 mg/dL (8.5-10.3); CREATININE 0.7 mg/dL (0.4-1.0); TOTAL PROTEIN 5.9 g/dL (6.7-8.2)
[2017-10-31 12:06] VITALS: BP 136/77
[2017-10-31] MEDS ORDERED: ATORVASTATIN 10 MG TABLET PO SCH (21:00)
[2017-10-31] MEDS ORDERED: SULFAMETH/TRIMETH DS 800/160 MG TABLET PO SCH (21:00)
[2017-10-31] MEDS ORDERED: LISINOPRIL 5 MG TABLET PO SCH (21:00)
[2017-11-01] MEDS ORDERED: ZINC SULFATE 220 MG CAPSULE PO SCH (09:00)
[2017-11-01] MEDS ORDERED: CYANOCOBALAMIN 500 MCG TABLET PO SCH (09:00)
== END 2017-10-31 12:50 | disposition home or self-care (01) | DRG 389 ==
LOC: ED 16:15 → MS3 20:32
PROVIDERS: ADMIT Specialist; ATTEND Nurse Practitioner
DX: K56.51 Intestinal adhesions [bands], with partial obstruction (principal); M48.56XA Collapsed vertebra, not elsewhere classified, lumbar region, initial encounter for fracture; C90.01 Multiple myeloma in remission; C90.00 Multiple myeloma not having achieved remission; R10.31 Right lower quadrant pain; Z79.84 Long term (current) use of oral hypoglycemic drugs; M48.54XA Collapsed vertebra, not elsewhere classified, thoracic region, initial encounter for fracture; T86.5 Complications of stem cell transplant; G89.29 Other chronic pain; D84.9 Immunodeficiency, unspecified; D89.811 Chronic graft-versus-host disease; K08.9 Disorder of teeth and supporting structures, unspecified; Z86.39 Personal history of other endocrine, nutritional and metabolic disease; I10 Essential (primary) hypertension; G89.4 Chronic pain syndrome; K21.9 Gastro-esophageal reflux disease without esophagitis; M85.80 Other specified disorders of bone density and structure, unspecified site; E78.5 Hyperlipidemia, unspecified; F32.9 Major depressive disorder, single episode, unspecified; Z86.14 Personal history of Methicillin resistant Staphylococcus aureus infection; Z87.891 Personal history of nicotine dependence; Z86.711 Personal history of pulmonary embolism; Z79.52 Long term (current) use of systemic steroids; Z79.899 Other long term (current) drug therapy; Z79.891 Long term (current) use of opiate analgesic; Z79.2 Long term (current) use of antibiotics
CPT/HCPCS: 36415; 71045; 74018; 74176; 80053; 82150; 83605; 83690; 85025; 96360; 96361; 96374; 96375; 99213; 99283; 99284; 99285

== ENCOUNTER 2017-11-02 16:14 | Emergency (ER) | payer MEDICARE ==
[2017-11-02] MEDS ORDERED: SODIUM CHLORIDE 0.9% 1,000 ML IV ONE ×2 (16:44)
[2017-11-02 17:02] LABS: MONOCYTES # (AUTO) 0.7 10^3/uL (0.0-1.0); WHITE BLOOD COUNT 6.5 x10^3/uL (4.8-10.8)
[2017-11-02] MEDS ORDERED: IOPAMIDOL-300 50 ML VIAL ONE (17:08)
[2017-11-02] MEDS ORDERED: IOPAMIDOL-300 100 ML VIAL ONE (17:08)
[2017-11-02 17:10] LABS: ALBUMIN/GLOBULIN RATIO 1.1 (1.0-2.2)
[2017-11-02 17:14] LABS: BASOPHILS # (AUTO) 0.1 10^3/uL (0.0-0.1); BASOPHILS % (AUTO) 0.9 %; EOSINOPHILS % (AUTO) 0.3 %; HGB - HEMOGLOBIN 11.9 g/dL (12.0-16.0); LYMPHOCYTES # (AUTO) 1.2 10^3/uL (1.5-3.5); MEAN CORPUSCULAR HEMOGLOBIN 31.8 pg (27.0-31.0); MEAN CORPUSCULAR HGB CONC 33.2 g/dL (32.0-36.0); MEAN CORPUSCULAR VOLUME 95.8 fL (81.0-99.0); MEAN PLATELET VOLUME 7.3 fL (7.9-10.8); MONOCYTES % (AUTO) 10.5 %; NEUTROPHILS # (AUTO) 4.6 10^3/uL (1.5-6.6); NEUTROPHILS % (AUTO) 70.3 %; PLT - PLATELET COUNT 630 10^3/uL (130-450); RED BLOOD COUNT 3.73 10^6/uL (4.20-5.40); RED CELL DISTRIBUTION WIDTH 17.7 % (12.0-15.0)
[2017-11-02 17:15] LABS: ALBUMIN 3.6 g/dL (3.2-5.5); BILIRUBIN,TOTAL 0.6 mg/dL (0.2-1.0); CALCIUM 8.8 mg/dL (8.5-10.3); CREATININE 0.7 mg/dL (0.4-1.0); TOTAL PROTEIN 6.8 g/dL (6.7-8.2)
[2017-11-02] MEDS ORDERED: IOPAMIDOL-300 100 ML VIAL IVP ONE (17:15)
--- NOTE | 2017-11-02 17:15 | ED Physician Documentation ---
PD HPI ABD PAIN - Stated complaint Stated Complaint: ABD PX - Chief complaint Chief Complaint: Abd Pain - History obtained from History obtained from: Patient - History of Present Illness Timing - onset: How many weeks ago (1) Timing - duration: Weeks (1) Timing - details: Gradual onset Pain level max: 8 Pain level now: 8 Quality: Aching, Pain Location: All over / everywhere Radiation: Other (non-radiating) Improved by: Vomiting Worsened by: Eating Associated symptoms: Nausea, Vomiting. No: Fever, Diarrhea, Constipation, Melena, Hematochezia, Dysuria Recently seen: Admitted (recently admitted for partial SBO.) Review of Systems Ten Systems: 10 systems reviewed and negative Constitutional: denies: Fever, Chills Ears: denies: Ear pain Nose: denies: Rhinorrhea / runny nose, Congestion Throat: denies: Sore throat Cardiac: denies: Chest pain / pressure Respiratory: denies: Cough GI: reports: Nausea, Vomiting. denies: Diarrhea Skin: denies: Rash Musculoskeletal: denies: Neck pain, Back pain Neurologic: denies: Headache PD PAST MEDICAL HISTORY - Past Medical History Past Medical History: Yes Cardiovascular: Hypertension Respiratory: Shortness of breath Endocrine/Autoimmune: None GI: Other : None HEENT: None Psych: None Musculoskeletal: Fatigue, Chronic back pain Derm: Other - Past Surgical History Past Surgical History: Yes General: Colonoscopy /COLLEGE ASSOCIATE: Tubal ligation - Present Medications Home Medications: Ambulatory Orders Medication Instructions Recorded Confirmed Metoprolol Succinate [Toprol Xl] 50 mg PO DAILY PM 03/08/13 10/30/17 Multivitamin [Multivitamins] 1 each PO DAILY 03/08/13 10/30/17 valACYclovir [Valtrex] 500 mg PO BID 03/08/13 10/30/17 Atorvastatin Calcium [Lipitor] 20 mg PO QPM 12/14/13 10/30/17 Zinc Sulfate 220 mg PO DAILY 12/14/13 10/30/17 Sertraline HCl [Zoloft] 75 mg PO QPM 02/21/14 10/30/17 Ascorbic Acid [C-1000] 500 mg PO DAILY 02/20/15 10/30/17 Folic Acid 1 mg PO DAILY 02/20/15 10/30/17 LORazepam [Ativan] 1 mg PO Q6HR PRN 02/20/15 10/30/17 Ondansetron HCl [Zofran] 8 mg PO Q8HR PRN 02/20/15 10/30/17 Sulfamethoxazole/Trimethoprim 1 each PO QPM 02/20/15 10/30/17 [Bactrim Ds Tablet] Cholecalciferol (Vitamin D3) 1,000 unit PO DAILY 06/07/15 10/30/17 [Vitamin D3] Morphine Sulfate [Ms Contin] 30 mg PO Q12H 11/13/15 10/30/17 Dexamethasone [Decadron] 20 mg PO DAILY PRN 02/05/16 10/30/17 Albuterol Sulf [Ventolin Hfa 2 puffs INH Q4HR PRN 04/22/16 10/30/17 Inhaler] Lisinopril 10 mg PO QPM 09/16/16 10/30/17 predniSONE [Prednisone] 5 mg PO DAILY 11/11/16 10/30/17 Cyanocobalamin (Vitamin B-12) 1,000 mcg PO DAILY 10/30/17 10/30/17 [Vitamin B-12] - Allergies Allergies/Adverse Reactions: Allergies Allergy/AdvReac Type Severity Reaction Status Date / Time ceftazidime Allergy Rash Verified 05/07/14 23:41 doxorubicin HCl pegylated Allergy Hives Verified 05/07/14 23:41 lipo... * [From Doxil] doxycycline Allergy Rash Verified 05/07/14 23:41 acetaminophen [From Vicodin] AdvReac Nausea Verified 05/07/14 23:41 hydrocodone bitartrate * AdvReac Nausea Verified 05/07/14 23:41 [From Vicodin] adhesive tape Allergy Rash Uncoded 05/07/14 23:41 - Social History Does the pt smoke?: No Smoking Status: Never smoker Does the pt drink ETOH?: No Does the pt have substance abuse?: No - Immunizations Immunizations are current?: Yes - POLST Patient has POLST: Yes POLST Status: Full Code PD ED PE NORMAL - Vitals Vital signs reviewed: Yes - General General: Alert and oriented X 3, No acute distress - HEENT HEENT: Moist mucous membranes - Neck Neck: Supple, no meningeal sign - Cardiac Cardiac: RRR, Strong equal pulses - Respiratory Respiratory: No respiratory distress, Clear bilaterally - Abdomen Abdomen: Soft, Other (distended diffusely.) - Derm Derm: Warm and dry - Neuro Neuro: Alert and oriented X 3 - Psych Psych: Normal mood, Normal affect Results - Vitals Vitals: Vital Signs - 24 hr 11/02/17 11/02/17 16:22 19:36 Temperature 36.4 C L Heart Rate 96 76 Respiratory 18 18 Rate Blood Pressure 126/83 H 113/65 O2 Saturation 98 100 Oxygen O2 Source Room air - Labs Labs: Laboratory Tests 11/02/17 11/02/17 11/02/17 16:50 16:50 18:22 WBC 6.5 RBC 3.73 L Hgb 11.9 L Hct 35.7 L MCV 95.8 MCH 31.8 H MCHC 33.2 RDW 17.7 H Plt Count 630 H MPV 7.3 L Neut # 4.6 Lymph # 1.2 L [place] # 0.7 Eos # 0.0 Baso # 0.1 Absolute Nucleated RBC 0.00 Nucleated RBC % 0.0 Sodium 135 Potassium 3.5 Chloride 100 L Carbon Dioxide 27 Anion Gap 10.0 BUN 10 Creatinine 0.7 Estimated GFR (MDRD) 86 L Glucose 116 H Calcium 8.8 Total Bilirubin 0.6 AST 18 ALT 14 Alkaline Phosphatase 66 Total Protein 6.8 Albumin 3.6 Globulin 3.4 Albumin/Globulin Ratio 1.1 Lipase 23 Urine Color YELLOW Urine Clarity CLEAR Urine pH 6.0 Ur Specific [place] 1.020 Urine Protein NEGATIVE Urine Glucose (UA) NEGATIVE Urine Ketones TRACE Urine Occult Blood NEGATIVE Urine Nitrite NEGATIVE Urine Bilirubin NEGATIVE Urine Urobilinogen 0.2 (NORMAL) Ur Leukocyte Esterase NEGATIVE Ur Microscopic Review NOT INDICATED Urine Culture Comments NOT INDICATED - Rads (name of study) CT abd/pelvis Radiology: Prelim report reviewed, EMP read contemporaneously, See rad report ( Distal small bowel obstruction with persistent small bowel dilation with increased dilated small bowel loops in left abdomen. 2. Distal small bowel wall thickening and luminal narrowing consistent with obstruction caused by inflammation, stricture or mass. 3. No bowel perforation or abscess. ) PD MEDICAL DECISION MAKING - ED course Complexity details: reviewed old records, reviewed results, re-evaluated patient , considered differential, d/w patient, d/w family, d/w project consultant ED course: Patient is a 57-year-old female who was recently admitted to this hospital for a small bowel obstruction. She was here for 2-3 days and then went home. She has only been home approximately 24 hours and is worsening. Unable to keep her oral medications home at this point. Repeat CT scan which shows a worsening small bowel obstruction. Discussed the case with Dr. Tristan Aden, general surgery here at approximately 1845 who recommends transfer for higher level of care given her complicated past medical history [id number] disease. She is already being consulted at [facility] for surgery by Dr. Snehal De La Torre. Therefore I spoke with Mario hodges at 1900, Dr. Freedman who recommends transferring to the [facility] and states [facility] will approve this transfer. I then spoke with Gala the transfer nurse at the [facility] in 1927 and she will page general surgery. I spoke with Dr. Mendes, general surgeon security control center operator at 2044 who recommends admission to oncology given her history and general surgery will consult. I then spoke with Dr. Morris @ 2100, oncology at who States that her rpjuq-pxbarg-ugox disease appears to be stable and he does not see any need for her to be on the oncology service. He recommends admission to general surgery. I then recounted to Dr. Mendes, general surgery at 2114 and he requests time to review the images to determine if he will accept the patient. At approximately 2199, [facility] called to confirm that they will accept this patient and will call back with the bed. Cover forms were filled out and patient is transferred to the [facility] for further care. An NG tube was placed here. She feels better after this. Pain controlled with morphine and nausea with Zofran. Also given IV fluids. This document was made in part using voice recognition software. While efforts are made to proofread this document, sound alike and grammatical errors may occur. Departure - Departure Disposition: 02 Transfer Acute Care Hosp Clinical Impression: Small bowel obstruction Condition: Stable
[2017-11-02] MEDS ORDERED: IOPAMIDOL-300 50 ML VIAL PO ONE (17:17)
[2017-11-02] MEDS ORDERED: MORPHINE 10 MG/ML VIAL IVP STA ×3 (18:41→22:46)
--- NOTE | 2017-11-02 18:46 | CT Preliminary Report ---
Exam: CT ABDOMEN/PELVIS W/ IMPRESSION: 1. Distal small bowel obstruction with persistent small bowel dilation with increased dilated small b owel loops in left abdomen. 2. Distal small bowel wall thickening and luminal narrowing consistent with obstruction caused by inf lammation, stricture or mass. 3. No bowel perforation or abscess. [facility] SITE ID: [id number]
--- NOTE | 2017-11-02 18:46 | CT Report ---
EXAM: CT ABDOMEN AND PELVIS EXAM DATE: 11/02/2017 06:22 PM. CLINICAL HISTORY: Diffuse abd pain, h/o SBO. COMPARISONS: 10/29/2017. TECHNIQUE: Routine helical CT imaging was performed through the abdomen and pelvis. IV contrast: 100 cc Isovue IV. Enteric contrast: Yes. Reconstructions: Coronal and sagittal. In accordance with CT protocol optimization, one or more of the following dose reduction techniques w ere utilized for this exam: automated exposure control, adjustment of mA and/or KV based on patient s ize, or use of iterative reconstructive technique. FINDINGS: Lung Bases: Unremarkable. Liver: There are small low-density lesions within the liver which are unchanged since previous. Gallbladder/Bile Ducts: Unremarkable. Spleen: Normal. Pancreas: Normal. Adrenal Glands: Normal. Kidneys: No renal mass or hydronephrosis. Peritoneal Cavity/Bowel: The stomach appears mildly dilated. There are multiple dilated small bowel l oops with small bowel air-fluid levels. In the right upper quadrant there is a small bowel loop measu ring 5.6 cm in diameter. There is a segment of hyperenhancing thickened small bowel in the right pelv is corresponding to a transition zone. This finding is best seen on images 46- 53. The distal small bowel is decompressed. The colon is decompressed. There is right lower quadrant mesenteric fat stranding. Pelvic Organs: Urinary bladder is unremarkable. Vasculature: There is moderate atherosclerotic vascular calcification. Bones: No acute fracture. There is generalized demineralization of the spine. There are wedging compr ession fractures of T11, L1, L2, and L3. Other: None. IMPRESSION: 1. Distal small bowel obstruction with persistent small bowel dilation with increased dilated small b owel loops in left abdomen. 2. Distal small bowel wall thickening and luminal narrowing consistent with obstruction caused by inf lammation, stricture or mass. 3. No bowel perforation or abscess. [facility] Referring Provider Line: [phone] SITE ID: [id number]
[2017-11-02 19:29] LABS: BILIRUBIN,URINE NEGATIVE (NEGATIVE); GLUCOSE, URINE (UA) NEGATIVE (NEGATIVE); KETONES,URINE (UA) TRACE mg/dL (NEGATIVE); LEUKOCYTE ESTERASE, URINE NEGATIVE (NEGATIVE); NITRITE,URINE NEGATIVE (NEGATIVE); OCCULT BLOOD,URINE NEGATIVE (NEGATIVE); PROTEIN,URINE NEGATIVE (NEGATIVE); UROBILINOGEN,URINE 0.2 (NORMAL) E.U./dL (NORMAL)
[2017-11-02 19:30] LABS: CLARITY,URINE CLEAR (CLEAR)
[2017-11-02] MEDS ORDERED: LIDOCAINE TOPICAL 4% 50 ML BOTTLE MM STA (19:46)
[2017-11-02] MEDS ORDERED: ONDANSETRON 4 MG/2 ML VIAL IVP STA (22:46)
[2017-11-03 00:18] VITALS: BP 134/70
== END 2017-11-02 23:00 | disposition short-term general hospital (02) ==
LOC: ED 16:14
DX: K56.609 Unspecified intestinal obstruction, unspecified as to partial versus complete obstruction (principal); I10 Essential (primary) hypertension
CPT/HCPCS: 36415; 74177; 80053; 81003; 83690; 85025; 96361; 96374; 96376; 99284; 99285; Q9967; 81001; 87086

== ENCOUNTER 2017-11-02 22:59 | Outpatient (CLI) | payer MEDICARE | END 2017-11-02 23:00 | disposition short-term general hospital (02) | LOC: EMS 22:59 | PROVIDERS: ATTEND Surgery | DX: K56.609 Unspecified intestinal obstruction, unspecified as to partial versus complete obstruction (principal) | CPT/HCPCS: A0170; A0425; A0426 ==

== ENCOUNTER 2018-02-22 13:26 | Outpatient (CLI) | payer MEDICARE, OTHER | END 2018-02-22 13:27 | disposition home or self-care (01) | LOC: RT 13:26 | PROVIDERS: ATTEND Internal Medicine Hematology & Oncology | DX: C90.00 Multiple myeloma not having achieved remission (principal) | CPT/HCPCS: 94010 ==

== ENCOUNTER 2018-02-23 07:40 | Outpatient (CLI) | payer MEDICARE, OTHER | END 2018-02-23 07:41 | disposition home or self-care (01) | LOC: LAB 07:40 | DX: C90.00 Multiple myeloma not having achieved remission (principal) ==

== ENCOUNTER 2018-02-23 09:20 | Outpatient (CLI) | payer MEDICARE, OTHER ==
--- NOTE | 2018-02-23 13:11 | DEXA Report ---
Reason: MULTIPLE MYELOMA Procedure Date: 02/23/2018 Accession Number: [id number] / [id number] Procedure: DEX - Dexa Spine and/or Hip CPT Code: FULL RESULT: EXAM: Dexa Spine and/or Hip DATE: 02/23/2018 9:50 AM CLINICAL HISTORY: MULTIPLE MYELOMA TECHNIQUE: Dual energy x-ray absorptiometry (DXA) was performed on a [employer] System. Regions measured are the AP Spine, femoral neck, and if needed forearm. COMPARISON: 05/22/2017. In accordance with the International Society for Clinical Densitometry (ISCD) guidelines, data from previous exams may be reanalyzed using current recommendations and techniques. This is done to allow a more accurate basis for comparison with the current study. FINDINGS: The data for the hip is as follows: BMD (g/cm/cm) T-SCORE Z-SCORE REGION Neck 0.665 -2.7 -1.4 TOTAL 0.683 -2.6 -1.6 NOTE: The femoral neck or total proximal femur, whichever is lowest, is used for classification. The data for the left forearm is as follows: BMD (g/cm/cm) T-SCORE Z-SCORE REGION 1/3 0.975 1.1 2.0 NOTE: The 33% radius of the nondominant forearm is used for classification. DXA RESULTS SUMMARY: Hip SCAN DATE AGE BMD CHANGE VS CHANGE VS PREVIOUS PREVIOUS % 02[birth year]23/2018 [age] 0.683 -0.019 -2.7 05/22/2017 57.3 0.702 * Denotes significant change at the 95% confidence level. Denotes dissimilar scan types or analysis methods. DXA RESULTS SUMMARY: Forearm SCAN DATE AGE BMD CHANGE VS CHANGE VS PREVIOUS PREVIOUS % 05/22/2017 57 0.702 -0.019 -2.7 * Denotes significant change at the 95% confidence level. Denotes dissimilar scan types or analysis methods. IMPRESSION: THE WHO CLASSIFICATION BASED ON THE INTERNATIONAL REFERENCE STANDARD IS OSTEOPOROSIS. THE FRACTURE RISK IS HIGH. RECOMMENDATION: Patients with diagnosis of osteoporosis or osteopenia should have regular bone mineral density assessment. For those eligible for Medicare, routine testing is allowed once every 2 years. Testing frequency can be increased for patients who have rapidly progressing disease or for those who are receiving medical therapy to restore bone mass. COMMENT: World Health Organization (WHO) definitions for osteoporosis and osteopenia: NORMAL BMD: T-score at -1.0 or higher, fracture risk is low OSTEOPENIA BMD: T-score between -1.0 and -2.5, fracture risk is increased. OSTEOPOROSIS BMD: T-score at -2.5 or lower, fracture risk is high. National Osteoporosis Foundation recommends: 1. Obtain adequate dietary calcium (at least 1200 mg per day) and vitamin D (400-800 international units per day). 2. Participate, as appropriate, in regular weightbearing and muscle-strengthening exercise. 3. Avoid tobacco use and reduce alcohol and caffeine intake. 4. For more detailed information see the website at www.NOF.org.
== END 2018-02-23 09:21 | disposition home or self-care (01) ==
LOC: DI 09:20
PROVIDERS: ATTEND Internal Medicine Hematology & Oncology
DX: M81.0 Age-related osteoporosis without current pathological fracture (principal); C90.00 Multiple myeloma not having achieved remission
CPT/HCPCS: 77080; 77081

== ENCOUNTER 2018-04-14 11:51 | Outpatient (CLI) | payer MEDICARE, OTHER ==
--- NOTE | 2018-04-15 08:58 | Mammography Report ---
Reason: SCREENING MAMMO Procedure Date: 04/14/2018 Accession Number: [id number] / [id number] Procedure: RINKU - Screening Mammo Dig Bilat CPT Code: FULL RESULT: EXAM: Screening Mammo Dig Bilat DATE: 04/14/2018 12:22 PM CLINICAL HISTORY: 58-year-old female for screening. TECHNIQUE: Bilateral CC and MLO views were obtained. COMPARISON: 10/25/2016, 09/06/2015, 07/21/2012, 07/11/2010 FINDINGS: The breasts demonstrate scattered fibroglandular densities bilaterally. Coarse typically benign calcifications are noted left breast. No suspicious masses, clustered microcalcifications, or regions of architectural distortion are identified. IMPRESSION: Benign findings RECOMMENDATION: Routine annual screening unless otherwise clinically indicated. BIRADS CATEGORY 2: Benign findings STANDARD QUALIFYING STATEMENTS: 1. This examination was not reviewed with the aid of Computer-Aided Detection (CAD). 2. A negative or benign imaging report should not delay biopsy if clinically suspicious findings are present. Consider surgical consultation if warrented. More than 5% of cancers are not identified by imaging. 3. Dense breasts may obscure an underlying neoplasm. 4. This examination was reviewed without the aid of 3D breast imaging (tomosynthesis).
== END 2018-04-14 11:52 | disposition home or self-care (01) ==
LOC: DI 11:51
DX: Z12.31 Encounter for screening mammogram for malignant neoplasm of breast (principal)
CPT/HCPCS: 77067

== ENCOUNTER 2018-10-26 18:48 | Inpatient (IN) | payer MEDICARE, OTHER ==
[2018-10-26] MEDS ORDERED: ACETAMINOPHEN 325 MG TABLET PO STA (19:24)
[2018-10-26] MEDS ORDERED: ONDANSETRON 4 MG/2 ML VIAL IVP STA (19:24)
--- NOTE | 2018-10-26 19:26 | ED Physician Documentation ---
History of Present Illness - Stated complaint Stated Complaint: FEVER - Chief complaint Chief Complaint: Fever - History obtained from History obtained from: Patient, Family - History of Present Illness Timing: Today (58-year-old woman with multiple myeloma status post relapsed post stem cell transplant. Currently receiving Pomalyst/Decadron/carfilzomib, had her second infusion today. About 2 hours after leaving the hospital she developed shaking chills. Her daughter checked her temperature an hour ago and it was 102. She denies significant cough, shortness of breath, abdominal pain. She is nauseous. Denies urinary complaints or rash.) Review of Systems Constitutional: reports: Fever, Chills, Myalgias, Fatigue Ears: denies: Ear pain Nose: reports: Rhinorrhea / runny nose (chronic mild). 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 - Present Medications Home Medications: Ambulatory Orders Medication Instructions Recorded Confirmed RX: Metoprolol Succinate [Toprol 50 mg PO DAILY PM 03/08/13 10/26/18 Xl] RX: Multivitamin [Multivitamins] 1 each PO DAILY 03/08/13 10/26/18 RX: valACYclovir [Valtrex] 500 mg PO BID 03/08/13 10/26/18 RX: Atorvastatin Calcium [Lipitor] 20 mg PO QPM 12/14/13 10/26/18 RX: Zinc Sulfate 220 mg PO DAILY 12/14/13 10/26/18 RX: Ascorbic Acid [C-1000] 500 mg PO DAILY 02/20/15 10/26/18 RX: Folic Acid 1 mg PO DAILY 02/20/15 10/26/18 RX: LORazepam [Ativan] 1 mg PO Q6HR PRN 02/20/15 10/26/18 RX: Ondansetron HCl [Zofran] 8 mg PO Q8HR PRN 02/20/15 10/26/18 RX: Sulfamethoxazole/Trimethoprim 1 each PO QPM 02/20/15 10/26/18 [Bactrim Ds Tablet] RX: Cholecalciferol (Vitamin D3) 1,000 unit PO DAILY 06/07/15 10/26/18 [Vitamin D3] RX: Morphine Sulfate [Ms Contin] 30 mg PO DAILY 11/13/15 10/26/18 RX: dexAMETHasone [Decadron] 40 mg PO Q7D 02/05/16 10/26/18 RX: Albuterol Sulf [Ventolin Hfa 2 puffs INH Q4HR PRN 04/22/16 10/26/18 Inhaler] RX: Cyanocobalamin (Vitamin B-12) 1,000 mcg PO DAILY 10/30/17 10/26/18 [Vitamin B-12] Diphenoxylate/Atropine [Lomotil] 1 tab ORAL PRN PRN MDD 8 tabs 01/09/18 10/26/18 Pomalidomide [Pomalyst] 4 mg PO DAILY 10/12/18 10/26/18 RX: Lisinopril 10 mg PO QPM 30 Days #30 tablet 10/14/18 - Allergies Allergies/Adverse Reactions: Allergies Allergy/AdvReac Type Severity Reaction Status Date / Time adhesive tape Allergy Rash Verified 10/27/18 06:02 ceftazidime Allergy Rash Verified 10/26/18 18:53 doxorubicin HCl pegylated Allergy Hives Verified 10/26/18 18:53 lipo... * [From Doxil] doxycycline Allergy Rash Verified 10/26/18 18:53 acetaminophen [From Vicodin] AdvReac Nausea Verified 10/26/18 18:53 hydrocodone bitartrate * AdvReac Nausea Verified 10/26/18 18:53 [From Vicodin] - Social History Does the pt smoke?: No Smoking Status: Never smoker Does the pt drink ETOH?: No Does the pt have substance abuse?: No - Immunizations Immunizations are current?: Yes - POLST Patient has POLST: Yes POLST Status: Full Code PD ED PE NORMAL - Vitals Vital signs reviewed: Yes - General General: Alert and oriented X 3, No acute distress - HEENT HEENT: PERRL, EOMI, Ears normal, Moist mucous membranes, Pharynx benign - Neck Neck: Supple, no meningeal sign, No bony TTP - Cardiac Cardiac: RRR, No murmur - Respiratory Respiratory: No respiratory distress, Clear bilaterally - Abdomen Abdomen: Non tender - Back Back: No CVA TTP, No spinal TTP - Derm Derm: Normal color, Warm and dry - Extremities Extremities: No edema, No calf tenderness / cord - Neuro Neuro: Alert and oriented X 3, Normal speech Results - Vitals Vitals: Vital Signs - 24 hr 10/26/18 10/26/18 10/26/18 18:52 19:12 19:35 Temperature 37.6 C H 39.4 C H Heart Rate 103 H 105 H Respiratory 18 16 Rate Blood Pressure 118/69 103/62 O2 Saturation 98 99 10/26/18 20:38 Temperature 38.3 C H Heart Rate 95 Respiratory 18 Rate Blood Pressure 79/49 L O2 Saturation 94 Oxygen O2 Source Room air - Labs Labs: Microbiology 10/26/18 19:59 Urine Culture - Preliminary Urine,Clean Catch CULTURE IN PROGRESS. RESULTS TO FOLLOW. Laboratory Tests 10/26/18 10/26/18 10/26/18 00:11 19:30 19:30 WBC 29.1 H RBC 3.50 L Hgb 12.0 Hct 35.3 L MCV 100.8 H MCH 34.4 H MCHC 34.1 RDW 15.7 H Plt Count 346 MPV 7.9 Neut # (Auto) Not Reportable Lymph # (Auto) Not Reportable Cascade # (Auto) Not Reportable Eos # (Auto) Not Reportable Baso # (Auto) Not Reportable Absolute Nucleated RBC Not Reportable Total Counted 100 Band Neuts % (Manual) 0 Abnorm Lymph % (Manual) 0 Nucleated RBC % Not Reportable Neutrophils # (Manual) 26.2 H Lymphocytes # (Manual) 0.6 L Monocytes # (Manual) 2.0 H Eosinophils # (Manual) 0.0 Basophils # (Manual) 0.3 H Differential Comment MANUAL DIFFERENTIAL WBC Morphology NORMAL APPEARANCE Platelet Estimate NORMAL (130-450,000) Platelet Morphology NORMAL APPEARANCE RBC Morph Micro Appear 1+ MACROCYTOSIS Sodium 133 L Potassium 4.2 Chloride 103 Carbon Dioxide 17 L Anion Gap 13.0 BUN 23 H Creatinine 1.1 H Estimated GFR (MDRD) 51 L Glucose 110 H Lactic Acid Calcium 8.6 Magnesium Total Bilirubin 1.0 AST 59 H ALT 118 H Alkaline Phosphatase 235 H Total Creatine Kinase Total Protein 7.1 Albumin 3.1 L Globulin 4.0 Albumin/Globulin Ratio 0.8 L Lipase 26 Urine Color Urine Clarity Urine pH Ur Specific [place] Urine Protein Urine Glucose (UA) Urine Ketones Urine Occult Blood Urine Nitrite Urine Bilirubin Urine Urobilinogen Ur Leukocyte Esterase Urine RBC Urine WBC Urine WBC Clumps Ur Squamous Epith Cells Urine Bacteria Ur Microscopic Review Urine Culture Comments Nasal Screen MRSA (PCR) NEGATIVE Influenza A (Rapid) Influenza B (Rapid) 10/26/18 10/26/18 10/26/18 19:30 19:30 19:39 WBC RBC Hgb Hct MCV MCH MCHC RDW Plt Count MPV Neut # (Auto) Lymph # (Auto) Cascade # (Auto) Eos # (Auto) Baso # (Auto) Absolute Nucleated RBC Total Counted Band Neuts % (Manual) Abnorm Lymph % (Manual) Nucleated RBC % Neutrophils # (Manual) Lymphocytes # (Manual) Monocytes # (Manual) Eosinophils # (Manual) Basophils # (Manual) Differential Comment WBC Morphology Platelet Estimate Platelet Morphology RBC Morph Micro Appear Sodium Potassium Chloride Carbon Dioxide Anion Gap BUN Creatinine Estimated GFR (MDRD) Glucose Lactic Acid 1.3 Calcium Magnesium 1.7 Total Bilirubin AST ALT Alkaline Phosphatase Total Creatine Kinase 71 Total Protein Albumin Globulin Albumin/Globulin Ratio Lipase Urine Color Urine Clarity Urine pH Ur Specific [place] Urine Protein Urine Glucose (UA) Urine Ketones Urine Occult Blood Urine Nitrite Urine Bilirubin Urine Urobilinogen Ur Leukocyte Esterase Urine RBC Urine WBC Urine WBC Clumps Ur Squamous Epith Cells Urine Bacteria Ur Microscopic Review Urine Culture Comments Nasal Screen MRSA (PCR) Influenza A (Rapid) Negative Influenza B (Rapid) Negative 10/26/18 19:59 WBC RBC Hgb Hct MCV MCH MCHC RDW Plt Count MPV Neut # (Auto) Lymph # (Auto) Cascade # (Auto) Eos # (Auto) Baso # (Auto) Absolute Nucleated RBC Total Counted Band Neuts % (Manual) Abnorm Lymph % (Manual) Nucleated RBC % Neutrophils # (Manual) Lymphocytes # (Manual) Monocytes # (Manual) Eosinophils # (Manual) Basophils # (Manual) Differential Comment WBC Morphology Platelet Estimate Platelet Morphology RBC Morph Micro Appear Sodium Potassium Chloride Carbon Dioxide Anion Gap BUN Creatinine Estimated GFR (MDRD) Glucose Lactic Acid Calcium Magnesium Total Bilirubin AST ALT Alkaline Phosphatase Total Creatine Kinase Total Protein Albumin Globulin Albumin/Globulin Ratio Lipase Urine Color LT. YELLOW Urine Clarity HAZY Urine pH 5.0 Ur Specific [place] 1.025 Urine Protein 30 H Urine Glucose (UA) NEGATIVE Urine Ketones NEGATIVE Urine Occult Blood NEGATIVE Urine Nitrite POSITIVE H Urine Bilirubin NEGATIVE Urine Urobilinogen 0.2 (NORMAL) Ur Leukocyte Esterase SMALL H Urine RBC None Seen Urine WBC >25 H Urine WBC Clumps PRESENT Ur Squamous Epith Cells NONE SEEN Urine Bacteria Moderate H Ur Microscopic Review INDICATED Urine Culture Comments INDICATED Nasal Screen MRSA (PCR) Influenza A (Rapid) Influenza B (Rapid) - Rads (name of study) 2v chest Radiology: EMP read contemporaneously (Left lower lobe airspace opacity) Procedures - Central Line Central Line Preparation: Consent Obtained (from pt, written), Time out completed, Ultrasound used Central line location: Right IJ Central line type: Triple lumen (7F) Central line aftercare: Chlorhexidine disc placed, Secured, No complications, Pt tolerated well PD MEDICAL DECISION MAKING - ED course ED course: 58-year-old woman with chemotherapy presents with fever, no clear source on history. Found to have pneumonia and a UTI. Blood cultures were obtained. Called to Dr. Russell for admission for likely sepsis at 8:30 PM. On reassessment at 8:40 PM she dropped her pressure to 80/40 and ordered large volume crystalloid bolus as well as Zosyn, Levaquin, and vancomycin for multisource sepsis noting her allergies. Dr. Russell was updated. We agreed that if her blood pressure rebounds with the fluids only we would continue the current care, I will place a central line if her blood pressure does not quickly improve. Her pressure stayed about the same and a central line was placed to facilitate pressors. - Critical Care Time(min): 40 Time Includes: Direct patient care, Review records, Reassess patient, Document care, Coordinate care, Medical consult, Family consult for tx dec Data interpretation: Labs, Pulse ox Procedures included in critical care time: Peripheral IV Procedures excluded from critical care time: Central IV - Sepsis Event Current Stage of Sepsis: Septic shock (dropped BP to 80/40 at 8:40pm, that was the time of sepsis identification) Initial Hypotension: MAP less than 65 mmHg Possible source of Sepsis: Pulmonary, Genitourinary Mental/Cognitive Status: Alert/Oriented X3, Oriented to time Capillary refill: Less than 2 seconds Peripheral Pulse Strength: 3+ Normal Peripheral Pulse Location: Radial Bedside ultrasound performed: No Departure - Departure Disposition: 66 [facility] DC/Xfer Clinical Impression: Septic shock Fever Qualifiers: Fever type: due to other condition Qualified Code(s): R50.81 - Fever presenting with conditions classified elsewhere UTI (urinary tract infection) Qualifiers: Urinary tract infection type: site unspecified Hematuria presence: without hematuria Qualified Code(s): N39.0 - Urinary tract infection, site not specified Pneumonia Qualifiers: Pneumonia type: due to unspecified organism Laterality: left Lung location: lower lobe of lung Qualified Code(s): J18.1 - Lobar pneumonia, unspecified organism Condition: Critical Discharge Date/Time: 10/26/18 21:25
[2018-10-26 19:45] LABS: BASOPHILS % (AUTO) 0.8 %; EOSINOPHILS % (AUTO) 1.2 %; LYMPHOCYTES % (AUTO) 5.4 %; MEAN CORPUSCULAR HEMOGLOBIN 34.4 pg (27.0-31.0); MEAN CORPUSCULAR HGB CONC 34.1 g/dL (32.0-36.0); MEAN CORPUSCULAR VOLUME 100.8 fL (81.0-99.0); MEAN PLATELET VOLUME 7.9 fL (7.9-10.8); MONOCYTES % (AUTO) 7.9 %; NEUTROPHILS % (AUTO) 84.7 %; PLT - PLATELET COUNT 346 10^3/uL (130-450); RED CELL DISTRIBUTION WIDTH 15.7 % (12.0-15.0); WHITE BLOOD COUNT 29.1 x10^3/uL (4.8-10.8)
[2018-10-26 19:53] LABS: ABNORMAL LYMPHS % (MANUAL) 0 %; BAND NEUTROPHILS % (MANUAL) 0 %
[2018-10-26 19:58] LABS: ALBUMIN 3.1 g/dL (3.2-5.5); ALBUMIN/GLOBULIN RATIO 0.8 (1.0-2.2); CALCIUM 8.6 mg/dL (8.5-10.3); CREATININE 1.1 mg/dL (0.4-1.0); TOTAL PROTEIN 7.1 g/dL (6.7-8.2)
[2018-10-26 20:25] LABS: BASOPHILS # (MANUAL) 0.3 10^3/uL (0-0.1); BASOPHILS % (MANUAL) 1 %; LYMPHOCYTES # (MANUAL) 0.6 10^3/uL (1.5-3.5); LYMPHOCYTES % (MANUAL) 2 %; NEUTROPHILS # (MANUAL) 26.2 10^3/uL (1.5-6.6); NEUTROPHILS % (MANUAL) 90 %; PLATELET ESTIMATE, MANUAL NORMAL (130-450,000) (NORMAL); PLATELET MORPHOLOGY NORMAL APPEARANCE (NORMAL)
[2018-10-26 20:26] LABS: DIFFERENTIAL COMMENT MANUAL DIFFERENTIAL
[2018-10-26 20:27] LABS: BILIRUBIN,URINE NEGATIVE (NEGATIVE); GLUCOSE, URINE (UA) NEGATIVE (NEGATIVE); KETONES,URINE (UA) NEGATIVE (NEGATIVE); LEUKOCYTE ESTERASE, URINE SMALL (NEGATIVE); NITRITE,URINE POSITIVE (NEGATIVE); OCCULT BLOOD,URINE NEGATIVE (NEGATIVE); PROTEIN,URINE 30 mg/dL (NEGATIVE); UROBILINOGEN,URINE 0.2 (NORMAL) E.U./dL (NORMAL)
--- NOTE | 2018-10-26 20:28 | XRAY Report ---
Reason: fever Procedure Date: 10/26/2018 Accession Number: [id number] / [id number] Procedure: XR - Chest 2 View X-Ray CPT Code: 43954 FULL RESULT: EXAM: CHEST RADIOGRAPHY EXAM DATE: 10/26/2018 07:59 PM. CLINICAL HISTORY: Fever. COMPARISON: CHEST 1 VIEW 10/29/2017 9:17 PM. TECHNIQUE: 2 views. FINDINGS: Lungs/Pleura: There is a new patchy density within the anterior left lower lobe. There is a linear density in the posterior left lower lobe. Right lung is clear. No pleural effusion or pneumothorax. Mediastinum: Heart and mediastinal contours are unremarkable. Other: None. IMPRESSION: 1. New airspace opacity in the left lower lobe. There is a component of atelectasis and also a patchy density which could represent pneumonia. Right lung is clear. [facility]
[2018-10-26 20:29] LABS: CLARITY,URINE HAZY (CLEAR)
[2018-10-26 20:34] LABS: BACTERIA,URINE Moderate /HPF (None Seen); RBC,URINE None Seen /HPF (0-5); SQUAMOUS EPITHELIAL CELL,UR NONE SEEN (<= Few); WBC CLUMPS,URINE PRESENT
[2018-10-26] MEDS ORDERED: PIPERACILLIN/TAZOBACTAM 3.375 GM in SODIUM CHLORIDE 0.9% MINIBAG 100 ML IV STA (20:35)
[2018-10-26] MEDS ORDERED: levoFLOXacin 750 MG/150 ML 750 MG/150 ML BAG IV ONE (20:35)
[2018-10-26] MEDS ORDERED: VANCOMYCIN INJ 1.5 GM in SODIUM CHLORIDE 0.9% 500 ML IV STA (20:36)
[2018-10-26] MEDS ORDERED: VANCOMYCIN PER PHARMACY 10 GM in SODIUM CHLORIDE 0.9% 250 ML IV STA (20:37)
[2018-10-26] MEDS ORDERED: LACTATED RINGERS 2,000 ML IV STA (20:41)
[2018-10-26] MEDS ORDERED: ALBUTEROL NEB 2.5 MG/3 ML INH PRN (20:42)
[2018-10-26] MEDS ORDERED: DIPHENOX/ATROPINE 2.5/0.025 MG TABLET PO PRN (20:47)
--- NOTE | 2018-10-26 20:58 | HISTORY & PHYSICAL EXAMINATION ---
Chief Complaint - Chief Complaint Chief Complaint: Fevers, Rigors, chills History of Present Illness - Admitted From Admitted From:: ED - History Obtained From Records Reviewed: yes History obtained from: Patient and ED MD Exam Limitations: none - History of Present Illness HPI Comment/Other: 58-year-old woman with a past medical history significant for multiple myeloma IgG G kappa; progression in 07/28, Confirmed via MRI of the bone marrow showing disease in bilateral arms, left femur, right iliac bone, negative bone marrow biopsy, M-spike on last note by Dr. Lorenz, primary oncologist, status post relapsed post stem cell transplant. Currently receiving Pomalyst/Decadron/carfilzomib, Since 10/12/2018, had her second infusion today. About 2 hours after leaving the hospital she developed shaking chills. Her daughter checked her temperature an hour ago and it was 102. She denies significant cough, shortness of breath, abdominal pain. She is nauseous. Denies urinary complaints or rash. Patient was found to have a left lower lobe pneumonia on chest x-ray as well as UA showing pyuria with associated signs and symptoms of fevers, chills, rigors and generalized weakness. Patient was empirically started on IV Vanco, Zosyn and Levaquin and was noted to have tachycardia with systolic blood pressures initially at 103/62 then dropping to 80/40 and given aggressive IV fluid resuscitation. Lactic acid is 1.3, CO2 17, creatinine of 1.1, AST elevated at 59, ALT of 118, AP of 235, WBC of 29.1k. 2 sets of blood cultures were obtained, early goal-directed therapy initiated. 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 History of chronic pulmonary embolism initially diagnosed in 2011, chronic back pain due to compression fracture from myeloma with associated osteoporosis on MS Contin 30 mg p.o. daily, history of iron and B12 deficiency, status post parenteral infusions, History of multiple bacteremia with Streptococcus and MRSA in 2012 along with Burkholderia cepacia grp, as well as E. coli bacteremia in 2013, Hypertension, hyperlipidemia, hepatitis a in childhood, nontraumatic compression fracture secondary to multiple myeloma, GERD, chemotherapy-induced transaminitis, anemia with thrombocytopenia deemed to be chemotherapy-induced. 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: Tubal ligation - POLST Patient has POLST: Yes POLST Status: Full Code Meds/Allgy - Home Medications Home Medications: Ambulatory Orders Medication Instructions Recorded Confirmed Metoprolol Succinate [Toprol Xl] 50 mg PO DAILY PM 03/08/13 10/26/18 Multivitamin [Multivitamins] 1 each PO DAILY 03/08/13 10/26/18 valACYclovir [Valtrex] 500 mg PO BID 03/08/13 10/26/18 Atorvastatin Calcium [Lipitor] 20 mg PO QPM 12/14/13 10/26/18 Zinc Sulfate 220 mg PO DAILY 12/14/13 10/26/18 Ascorbic Acid [C-1000] 500 mg PO DAILY 02/20/15 10/26/18 Folic Acid 1 mg PO DAILY 02/20/15 10/26/18 LORazepam [Ativan] 1 mg PO Q6HR PRN 02/20/15 10/26/18 Ondansetron HCl [Zofran] 8 mg PO Q8HR PRN 02/20/15 10/26/18 Sulfamethoxazole/Trimethoprim 1 each PO QPM 02/20/15 10/26/18 [Bactrim Ds Tablet] Cholecalciferol (Vitamin D3) 1,000 unit PO DAILY 06/07/15 10/26/18 [Vitamin D3] Morphine Sulfate [Ms Contin] 30 mg PO DAILY 11/13/15 10/26/18 dexAMETHasone [Decadron] 40 mg PO Q7D 02/05/16 10/26/18 Albuterol Sulf [Ventolin Hfa 2 puffs INH Q4HR PRN 04/22/16 10/26/18 Inhaler] Cyanocobalamin (Vitamin B-12) 1,000 mcg PO DAILY 10/30/17 10/26/18 [Vitamin B-12] Diphenoxylate/Atropine [Lomotil] 1 tab ORAL PRN PRN MDD 8 tabs 01/09/18 10/26/18 Pomalidomide [Pomalyst] 4 mg PO DAILY 10/12/18 10/26/18 Lisinopril 10 mg PO QPM 30 Days #30 tablet 10/14/18 - Allergies Allergies/Adverse Reactions: Allergies Allergy/AdvReac Type Severity Reaction Status Date / Time ceftazidime Allergy Rash Verified 10/26/18 18:53 doxorubicin HCl pegylated Allergy Hives Verified 10/26/18 18:53 lipo... * [From Doxil] doxycycline Allergy Rash Verified 10/26/18 18:53 acetaminophen [From Vicodin] AdvReac Nausea Verified 10/26/18 18:53 hydrocodone bitartrate * AdvReac Nausea Verified 10/26/18 18:53 [From Vicodin] adhesive tape Allergy Rash Uncoded 10/26/18 09:17 Review of Systems - Constitutional Constitutional: reports: Fatigue, Fever, Chills, Malaise, Weakness, Poor appetite - All Other Systems All Other Systems: reports: Reviewed and negative Prior Level of Functionality: Patient's functional capacity and home ADLs adequate Exam - Vital Signs Reviewed Vital Signs: Yes Vital Signs: Vital Signs x48h Temp Pulse Resp BP Pulse Ox 10/26/18 20:45 89 16 84/50 L 95 10/26/18 20:38 38.3 C H 95 18 79/49 L 94 10/26/18 19:35 105 H 16 103/62 99 10/26/18 19:12 39.4 C H 10/26/18 18:52 37.6 C H 103 H 18 118/69 98 - Physical Exam General Appearance: positive: No acute distress, Alert Eyes Bilateral: positive: Normal inspection, PERRL, EOMI, Conjunctivae nml, No scleral icterus ENT: positive: ENT inspection nml, Pharynx nml, Dry mucous membranes Neck: positive: Nml inspection, Thyroid nml, No JVD, Trachea midline. negative: Thyromegaly Respiratory: positive: Chest non-tender, No respiratory distress, Breath sounds nml Cardiovascular: positive: Regular rate & rhythm, No murmur, No gallop Peripheral Pulses: positive: 2+ Abdomen: positive: Non-tender, No organomegaly, Nml bowel sounds, No distention Back: positive: Nml inspection Skin: positive: Color nml, No rash, Warm Extremities: positive: Non-tender, Full ROM, Nml appearance Neurologic/Psychiatric: positive: Oriented x3, CN's nml (2-12) Sepsis Event Note (H) - Evaluation Current Stage of Sepsis: Sepsis Possible source of Sepsis: positive: Pulmonary, Genitourinary Conclusion/Plan - Problem List (1) Sepsis Conclusion/Plan: Present on admission. Patient presenting with tachycardia, fevers, low blood pressures to as low as 80 systolic status post aggressive IV fluid resusc itation. Will initiate early goal-directed therapy with empiric coverage to cover for respiratory microorganisms with vancomycin/Zosyn for broad coverage along with Levaquin to cover for patient's UTI seen on UA with significant pyuria. Patient's initial WBC was 29.1 in the setting of a lactic acid which was unremarkable; confounding factors would be patient's recent second infusion chemotherapy along with being on Decadron which may give a leukemoid type reaction. Patient has a mild acute renal insufficiency so early organ involvement is seen however patient has had prior transaminitis and per primary oncologist , stating that he was holding off on Pomalyst, Decadron, and Carfilzomib due to abnormal liver functions, However patient did receive second infusion therapy today and was given 1 L normal saline bolus at the center. Patient has multiple allergies to include cephalosporin, doxycycline, and will need triple IV abx coverage as per above. If patient does not have improvement to systolic blood pressures or maintaining map above [address] a central line. Of note patient has had multiple bacteremias with Streptococcus, E. coli, and Burkholderia cepacia group. Will MRSA swab in ICU. Qualifiers: Sepsis type: sepsis due to unspecified organism Qualified Code(s): A41.9 - Sepsis, unspecified organism (2) UTI (urinary tract infection) Conclusion/Plan: Present on admission. Significant pyuria seen on UA along with associated symptoms. Patient to receive early goal-directed therapy as she has associated sepsis related to infection. Urine culture to follow. Of note patient has history of E. coli bacteremia back in 2013. Qualifiers: Urinary tract infection type: site unspecified Hematuria presence: without hematuria Qualified Code(s): N39.0 - Urinary tract infection, site not specified (3) Pneumonia Conclusion/Plan: Present on admission. Sputum Gram stain culture to follow, Flu swab, albuterol as needed, chest x-ray shows a left lower lobe infiltrate. Patient is immunosuppressed and was on Decadron with a appropriate response to WBCs at 29.1 with mixed component causing leukocytosis. We will continue with early goal- directed therapy as pneumonia is associated with sepsis. 3-hour sepsis bundle ordered. Along with lactic acid trending. Qualifiers: Pneumonia type: due to unspecified organism Laterality: left Lung location: lower lobe of lung Qualified Code(s): J18.1 - Lobar pneumonia, unspecified organism (4) Multiple myeloma in relapse Conclusion/Plan: Patient has a history of IgG kappa multiple myeloma with progression since 07/28 with MRI of the bone marrow showing disease in the bilateral arms, left femur, right iliac bone with a negative bone marrow biopsy as per primary oncology note dating 10/19/2018. In addition she has an M spike at 0.7. Patient is status post second infusion of Pomalyst, Decadron, carfilzomib which she has been receiving since 10/12/18. Dr. Leighton Lorenz wanted to postpone chemotherapy for 1 week and suggested adding one drug at a time as outlined in his prior note dated 10/19/2018. I believe the chemo was given despite elevated LFT's and she did receive the second dose. Patient had multiple myeloma relapse in 10/22. She had a course of daratumumab and Decadron from 02/22 to finish on 02/25. Initial myeloma diagnosed in 09/18 with extensive chemotherapy, including autoLog stem cell and allogenic stem cell transplant in 11/19. Due to infection with UTI and pneumonia with related sepsis will need to hold off on chemotherapy until patient has successfully completed IV antibiotic course and blood cultures are cleared. (5) Transaminitis Conclusion/Plan: Presumably secondary to chemotherapy, Drug toxicity; however she started carfilzomib IV, Pomalyst p.o. and glutamine p.o. Apparently she had repeat LFTs 1 week after her last visit with primary oncologist, patient then had her IV infusion of carfilzomib, and added pomalyst to tease out the culprit by adding one drug approach to chemotx regimen. LFTs trendingn were not terribly bad. Trending of LFTs seems to have improved somewhat, will continue with current medical management, obtain a acute hepatitis viral panel. Of note patient had hepatitis A as a child. (6) Metabolic acidosis Conclusion/Plan: Worsening. Will initiate bicarb drip. Patient appears a little dehydrated with prerenal azotemia and metabolic acidosis seen on initial chem panel. Creatinine of 1.7 now (1.1) and associated with acute renal insufficiency due to chemotherapy-induced agents along with sepsis, continue to hydrate and correct underlying electrolyte disturbances. (7) Acute renal insufficiency Conclusion/Plan: Likely secondary to chemotherapy Superimposed on Sepsis related to her pneumonia/UTI. Hyponatremia seen. Continue with aggressive IV fluid r esuscitation as well as early goal-directed therapy to treat underlying UTI and infection. Worsening metabolic acidosis and creatinine is up at 1.7 from 1.1, check magnesium and correct as needed. Will initiate bicarb drip. Baseline creatinine ranges between 0.9-1.0, 30+ protein seen in UA which indicates that patient has underlying possible hypertensive nephropathy. (8) Hyperlipidemia Conclusion/Plan: Patient is on a atorvastatin in the setting of patient's transaminitis we will hold this for now. Obtain a CK to rule out rhabdomyolysis. Qualifiers: Hyperlipidemia type: mixed hyperlipidemia Qualified Code(s): E78.2 - Mixed hyperlipidemia (9) Chronic pain syndrome Conclusion/Plan: This has been secondary to patient's multiple myeloma as well as osteoporosis seen on DEXA scan, has MRI bone marrow showing myeloma progression to bilateral arms, left femur and right iliac bone. Patient has been on chronic MS Contin at 30 mill grams p.o. nightly. We will continue with this. However patient's blood pressure has been an issue in the setting of patient's sepsis will need to monitor closely. (10) Hypertension Conclusion/Plan: Patient was on lisinopril and Toprol-XL, in the setting of patient's sepsis we w ill hold these BP meds for now. Qualifiers: Hypertension type: essential hypertension Qualified Code(s): I10 - Essential (primary) hypertension (11) Osteoporosis Conclusion/Plan: Secondary to multiple myeloma that is progressed and diffuse, Seen on DEXA scan dated 02/23/2018. Patient cannot have bisphosphonates due to severe dental issues preventing infusions. Would continue with vitamin D as well as calcium supplementation as indicated. 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 Prednisone and subsequent small bowel resection with resolut ion. Patient was initially going to have an ileostomy but ended up having a small bowel resection and instead and this adhesion formation was attributable to patient's GVHD. Currently patient is not having abdominal pain and with no signs or symptoms of recurrence of GVHD. (13) History of bacteremia Conclusion/Plan: Unfortunately patient has had a history of multiple bouts of bacteremia with strep bacteremia in 2013, MRSA bacteremia also in 2012, Burkholderia cepacia group bacteremia and E. coli bacteremia in 2013. Patient will be at the high risk of receiving a central line placement although will need either a midline or PICC line for triple antibiotics and if she is still receiving early goal- directed therapy. (14) DVT prophylaxis Conclusion/Plan: Patient is at high risk for thromboembolic events as well as DVTs as patient has a history of prior pulmonary embolism, especially in the setting of active multiple myeloma and sepsis. Will place on Lovenox 40 mg subcu daily. (15) Advanced care planning/counseling discussion Conclusion/Plan: Patient was adamant on being a full code and multiple medical conditions were discussed in the setting of plan of care as well as trajectory of illness. Would be appropriate to have palliative care consultation ordered and continue with current medical management until patient decides on further treatment down the road. - Lab Results Lab results reviewed: Yes Darvin Bones: 10/26/18 19:30 10/27/18 04:55 - Diagnostic Imaging Results Diagnostic Imaging Results: positive: Final report reviewed - EKG Results EKG Interpreted Independently: No - Other Other Results/Comments: Critical care time 30 minutes Core Measures - Anticipated LOS I expect patient to be DC'd or transferred within 96 hours.: Yes - Issues Hospital Issues and Management Plan: Patient to be on early goal-directed therapy, ICU critical care management, pal liative care consultation requested - DVT/VTE - Prophylaxis VTE/DVT Device ordered at admit?: Yes VTE/DVT Prophylaxis med ordered at admit?: Yes - Stroke - Rehab Assessment Rehab services assessment to be ordered?: No Not Ordered - Medical Reason: Not indicated - AMI - Statin at Admit Aspirin Prescribed on Admit: No Not Ordered - Medical Reason: Not indicated
[2018-10-26] MEDS ORDERED: LACTATED RINGERS 1,000 ML IV SCH (21:00)
[2018-10-26] MEDS ORDERED: VANCOMYCIN IV SCH (21:00)
[2018-10-26] MEDS ORDERED: SODIUM CHLORIDE 0.9% IV SCH (21:00)
[2018-10-26 21:04] LABS: MAGNESIUM 1.7 mg/dL (1.7-2.8)
[2018-10-26] MEDS ORDERED: SODIUM CHLORIDE 0.9% 1,000 ML IV ONE (21:14)
[2018-10-26] MEDS: FAMOTIDINE 20 MG/2 ML VIAL IVP SCH (21:43)
[2018-10-26] MEDS: SODIUM CHLORIDE FLUSH 0.9% 10 ML SYRINGE IVP SCH (21:44)
[2018-10-26] MEDS ORDERED: DEXTROSE 5% 250 ML IV ONE (22:54)
[2018-10-27] MEDS ORDERED: SODIUM CHLORIDE 0.9% 1,000 ML IV SCH (01:00)
[2018-10-27] MEDS ORDERED: [UNRECOGNIZED DRUG - OTHER] IV SCH ×2 (01:00)
[2018-10-27] MEDS: PIPERACILLIN/TAZOBACTAM 4.5 GM in SODIUM CHLORIDE 0.9% MINIBAG 100 ML IV SCH ×5 (01:53→21:56)
[2018-10-27] MEDS: dexAMETHasone 4 MG TABLET PO SCH ×2 (01:53→02:01)
[2018-10-27] MEDS: valACYclovir 500 MG TABLET PO SCH ×3 (01:53→20:58)
[2018-10-27] MEDS: SODIUM CHLORIDE FLUSH 0.9% 10 ML SYRINGE IVP SCH ×4 (04:27→20:53)
[2018-10-27] MEDS: KETOROLAC 30 MG/ML VIAL IVP PRN ×2 (04:28→18:31)
[2018-10-27] MEDS: SODIUM CHLORIDE FLUSH 0.9% 10 ML SYRINGE IVP PRN ×6 (04:55→19:10)
[2018-10-27 05:41] LABS: ALBUMIN 2.3 g/dL (3.2-5.5); ALBUMIN/GLOBULIN RATIO 0.7 (1.0-2.2); BILIRUBIN,TOTAL 1.2 mg/dL (0.2-1.0); CALCIUM 7.6 mg/dL (8.5-10.3); CREATININE 1.7 mg/dL (0.4-1.0); TOTAL PROTEIN 5.5 g/dL (6.7-8.2)
[2018-10-27 05:47] LABS: INR 1.2 (0.8-1.2); PT - PROTHROMBIN TIME 13.7 secs (9.9-12.6)
[2018-10-27] MEDS ORDERED: SODIUM BICARBONATE 100 MEQ in DEXTROSE 5% 1,000 ML IV SCH (06:00)
[2018-10-27] MEDS ORDERED: DEXTROSE 5% 1,000 ML IV ONE (06:17)
[2018-10-27] MEDS ORDERED: SODIUM BICARBONATE 8.4% 50 MEQ/50 ML VIAL ONE (06:18)
[2018-10-27] MEDS ORDERED: ACETAMINOPHEN 325 MG TABLET PO PRN (07:04)
[2018-10-27 07:23] LABS: BASOPHILS # (AUTO) 0.2 10^3/uL (0.0-0.1); BASOPHILS % (AUTO) 0.6 %; EOSINOPHILS # (AUTO) 0.5 10^3/uL (0.0-0.7); EOSINOPHILS % (AUTO) 1.6 %; HGB - HEMOGLOBIN 10.6 g/dL (12.0-16.0); LYMPHOCYTES # (AUTO) 1.7 10^3/uL (1.5-3.5); LYMPHOCYTES % (AUTO) 5.5 %; MEAN CORPUSCULAR HEMOGLOBIN 33.7 pg (27.0-31.0); MEAN CORPUSCULAR HGB CONC 33.4 g/dL (32.0-36.0); MEAN CORPUSCULAR VOLUME 101.2 fL (81.0-99.0); MEAN PLATELET VOLUME 7.7 fL (7.9-10.8); MONOCYTES # (AUTO) 4.1 10^3/uL (0.0-1.0); MONOCYTES % (AUTO) 13.2 %; NEUTROPHILS # (AUTO) 24.5 10^3/uL (1.5-6.6); NEUTROPHILS % (AUTO) 79.1 %; PLT - PLATELET COUNT 261 10^3/uL (130-450); RED BLOOD COUNT 3.16 10^6/uL (4.20-5.40); RED CELL DISTRIBUTION WIDTH 16.1 % (12.0-15.0); WHITE BLOOD COUNT 30.9 x10^3/uL (4.8-10.8)
--- NOTE | 2018-10-27 07:39 | PROVIDER PROGRESS NOTE ---
Assessment/Plan - Problem List (1) Septic shock Assessment/Plan: Her BP is improving, with the fluids and iv Levophed started overnight. Will try to wean Levophed to off today, keeping mean BP > 65. Will start iv saline and continue iv bicarb. Will recheck CO2 on BMP and a VBG at mid-day, to assess if the bicarb can be stopped. The source of the sepsis, the UTI and CAP, are being teated with antibiotics. (2) Metabolic acidosis Assessment/Plan: Will start iv saline and continue iv bicarb. Will recheck CO2 on BMP and a VBG at mid-day, to assess if the bicarb can be stopped. (3) Acute renal insufficiency Assessment/Plan: Creat tamera from 1.0 to 1.7, after having hypotension, suggesting ATN from shock. Start iv hydration with saline and BP support as long as needed with Levophed. Follow renal function labs daily. (4) UTI (urinary tract infection) Qualifiers: Urinary tract infection type: site unspecified Hematuria presence: without hematuria Qualified Code(s): N39.0 - Urinary tract infection, site not specified Assessment/Plan: Despite no dysuria, the patient has significant bacteriuria and suspect a UTI. Await final culture results and sensitivities. Continue with empiric Zosyn and Levofloxacin, started by the admitting Hospitalist, which would cover typical UTI-causing bacteria. (5) Pneumonia Qualifiers: Pneumonia type: due to unspecified organism Laterality: left Lung location: lower lobe of lung Qualified Code(s): J18.1 - Lobar pneumonia, unspecified organism Assessment/Plan: The LLL infiltrate was confirmed by CXR. The patient describes a minimal, and non-produxtive cough. Await blood culture results. No sputum culture was sent. Continue with empiric coverage for community-acquired pneumonia in an immunocompromise patient: IV Vanco, IV Zosyn, IV Levofloxacin. Adjust per results from Microbiology. (6) Multiple myeloma in relapse Assessment/Plan: She went through chemotherapy, infused just recently. Charu Ibarra, PROFESSOR OF [employer] [place] [facility] [place] the patient's recent history with me in person. It is unclear if she normally runs a high WBC count. Continue to monitor her CBC daily. (7) Anemia Assessment/Plan: Likely due to hemodilution plus underlying malignancy and chemotherapy, but she also had Iron and B12 deficiency, as per H&P. Will check B12, Folate levels and Iron panel. Replace if low. (8) Chronic pain syndrome Assessment/Plan: This has been secondary to patient's multiple myeloma as well as osteoporosis seen on DEXA scan, has MRI bone marrow showing myeloma progression to bilateral arms, left femur and right iliac bone. Patient has been on chronic MS Contin at 30 mill grams p.o. nightly. We will continue with this. However patient's blood pressure has been an issue in the setting of patient's sepsis will need to monitor closely. (9) Transaminitis Assessment/Plan: The LFT elevation is improving, ruling out shock liver as the cause, and more likely these were elevated from the chemo. Will monitor LFTs daily. 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 (11) Hx of essential hypertension Assessment/Plan: Currently the blood pressure is low, related to her septic shock and hypovolemia. Her metoprolol and CARLEY inhibitor are on hold. These will be restarted when blood pressure escalates. (12) Osteoporosis Qualifiers: Osteoporosis type: unspecified Presence of current pathological fracture: without current pathological fracture Qualified Code(s): M81.0 - Age-related osteoporosis without current pathological fracture Assessment/Plan: Continue vitamin D and Calcium replacement. - Current Meds Current Meds: Current Medications Generic Name Dose Route Start Last Admin Trade Name Freq PRN Reason Stop Dose Admin Dexamethasone 40 mg 10/26/18 21:00 10/27/18 02:01 Decadron PO Not Given Q7D PATRICE Famotidine 20 mg 10/26/18 21:00 10/26/18 21:43 Pepcid IVP 20 mg BID PATRICE Administration Piperacillin Sod/Tazobactam 100 mls @ 200 mls/hr 10/26/18 22:00 10/27/18 04:50 Sod 4.5 gm/ Sodium Chloride IV Infused Q6H PATRICE Infusion Norepinephrine Bitartrate 8 mg 258 mls @ 0 mls/hr 10/27/18 04:00 10/27/18 05:10 / Dextrose IV 10/27/18 10:00 16.9 mls/hr .Q0M PATRICE Infusion Sodium Bicarbonate 100 meq/ 1,100 mls @ 100 mls/hr 10/27/18 06:00 10/27/18 06:25 Dextrose IV 100 mls/hr .Q11H PATRICE Administration Ketorolac Tromethamine 30 mg 10/26/18 21:55 10/27/18 04:28 Toradol Inj (30mg) IVP 10/31/18 21:54 30 mg Q6HR PRN Administration PAIN Sodium Chloride 10 ml 10/27/18 01:00 10/27/18 04:27 Normal Saline Flush 0.9% IVP 10 ml 0100,0900,1700 PATRICE Administration Sodium Chloride 10 ml 10/26/18 20:42 10/27/18 06:31 Normal Saline Flush 0.9% IVP 10 ml PRN PRN Administration NEEDED PER PROVIDER ORDERS Valacyclovir HCl 500 mg 10/26/18 21:00 10/27/18 01:53 Valtrex PO 500 mg BID PATRICE Administration - Lab Result Lab results reviewed: Yes Fish Bone Diagrams: 10/27/18 07:14 10/27/18 11:25 - Additional Planning My Orders: My Active Orders 10/27/18 06:59 Miscellaenous Nursing Order [RC] ONCE 10/27/18 07:04 Acetaminophen [Tylenol] 650 mg PO Q4HR PRN 10/27/18 07:14 CBC - COMP BLD CT W/AUTO DIFF [HEME] Routine 10/27/18 11:00 BMP - BASIC METABOLIC PANEL [CHEM] Timed VENOUS BLOOD GAS [BG] Timed 10/28/18 05:00 CBC - COMP BLD CT W/AUTO DIFF [HEME] DAILYLAB 10/29/18 05:00 CBC - COMP BLD CT W/AUTO DIFF [HEME] DAILYLAB Subjective - Subjective Patient Reports: Feeling Better, Resting Comfortably Nursing Reports: No Complaints Objective Vital Signs: Vital Signs - 24 hr 10/26/18 10/26/18 10/26/18 18:52 19:12 19:35 Temperature 37.6 C H 39.4 C H Heart Rate 103 H 105 H Heart Rate [ Monitoring electrodes] Respiratory 18 16 Rate Blood Pressure 118/69 103/62 Blood Pressure [Left Brachial artery] O2 Saturation 98 99 10/26/18 10/26/18 10/26/18 20:38 20:45 21:02 Temperature 38.3 C H Heart Rate 95 89 85 Heart Rate [ Monitoring electrodes] Respiratory 18 16 16 Rate Blood Pressure 79/49 L 84/50 L 82/49 L Blood Pressure [Left Brachial artery] O2 Saturation 94 95 96 10/26/18 10/26/18 10/26/18 21:37 21:45 21:50 Temperature 37.4 C 38.3 C H Heart Rate 88 Heart Rate [ 72 Monitoring electrodes] Respiratory 21 16 Rate Blood Pressure 78/45 L Blood Pressure 86/50 L [Left Brachial artery] O2 Saturation 81 L 97 10/26/18 10/26/18 10/26/18 22:00 22:15 22:30 Temperature 37.4 C Heart Rate Heart Rate [ 90 85 82 Monitoring electrodes] Respiratory 19 13 14 Rate Blood Pressure Blood Pressure 78/47 L 75/46 L 76/53 L [Left Brachial artery] O2 Saturation 91 L 96 98 10/26/18 10/26/18 10/26/18 22:45 23:00 23:10 Temperature Heart Rate Heart Rate [ 83 81 64 Monitoring electrodes] Respiratory 15 17 18 Rate Blood Pressure Blood Pressure 75/55 L 76/49 L 91/54 L [Left Brachial artery] O2 Saturation 99 96 96 10/26/18 10/26/18 10/27/18 23:15 23:30 00:00 Temperature Heart Rate Heart Rate [ 65 71 68 Monitoring electrodes] Respiratory 19 12 19 Rate Blood Pressure Blood Pressure 98/60 107/58 L 105/64 [Left Brachial artery] O2 Saturation 97 95 93 10/27/18 10/27/18 10/27/18 01:00 01:30 02:00 Temperature 37.4 C Heart Rate Heart Rate [ 62 65 75 Monitoring electrodes] Respiratory 20 18 16 Rate Blood Pressure Blood Pressure 97/62 96/60 112/62 [Left Brachial artery] O2 Saturation 93 94 95 10/27/18 10/27/18 10/27/18 02:52 03:00 03:01 Temperature Heart Rate Heart Rate [ 60 61 61 Monitoring electrodes] Respiratory 18 19 20 Rate Blood Pressure Blood Pressure 88/42 L 90/47 L 84/52 L [Left Brachial artery] O2 Saturation 97 98 97 10/27/18 10/27/18 10/27/18 03:10 03:30 04:00 Temperature Heart Rate Heart Rate [ 62 54 L 52 L Monitoring electrodes] Respiratory 20 21 19 Rate Blood Pressure Blood Pressure 113/74 127/67 130/68 [Left Brachial artery] O2 Saturation 97 97 96 10/27/18 10/27/18 10/27/18 04:30 05:00 05:30 Temperature 37.0 C Heart Rate Heart Rate [ 61 52 L 52 L Monitoring electrodes] Respiratory 15 17 20 Rate Blood Pressure Blood Pressure 136/68 H 118/66 117/67 [Left Brachial artery] O2 Saturation 96 95 94 10/27/18 10/27/18 06:00 06:30 Temperature Heart Rate Heart Rate [ 52 L 52 L Monitoring electrodes] Respiratory 18 18 Rate Blood Pressure Blood Pressure 126/72 124/68 [Left Brachial artery] O2 Saturation 94 94 Oxygen O2 Source Nasal cannula I&O (Last 24 Hrs): Intake and Output Totals x24h 10/25/18 10/26/18 10/27/18 23:59 23:59 23:59 Intake Total 2380 603.750 Output Total 700 Balance 2380 -96.250 General: Alert, Oriented x3 HEENT: Mucous membr. moist/pink Neck: Supple, No JVD Neuro: Non Focal Cardiovascular: Regular rate Respiratory: No respiratory distress, Breath sounds nml Abdomen: Normal bowel sounds, Soft Extremities: No edema, No tenderness/swelling, Other (No rash) - Results Results: Laboratory Results WBC 30.9 x10^3/uL (4.8-10.8) H 10/27/18 07:14 RBC 3.16 10^6/uL (4.20-5.40) L 10/27/18 07:14 Hgb 10.6 g/dL (12.0-16.0) L 10/27/18 07:14 Hct 31.9 % (37.0-47.0) L 10/27/18 07:14 MCV 101.2 fL (81.0-99.0) H 10/27/18 07:14 MCH 33.7 pg (27.0-31.0) H 10/27/18 07:14 MCHC 33.4 g/dL (32.0-36.0) 10/27/18 07:14 RDW 16.1 % (12.0-15.0) H 10/27/18 07:14 Plt Count 261 10^3/uL (130-450) 10/27/18 07:14 MPV 7.7 fL (7.9-10.8) L 10/27/18 07:14 Neut # (Auto) Not Reportable 10/26/18 19:30 Lymph # (Auto) Not Reportable 10/26/18 19:30 Murray # (Auto) Not Reportable 10/26/18 19:30 Eos # (Auto) Not Reportable 10/26/18 19:30 Baso # (Auto) Not Reportable 10/26/18 19:30 Absolute Nucleated RBC Not Reportable 10/26/18 19:30 Total Counted 100 10/26/18 19:30 Band Neuts % (Manual) 0 % (0-10) 10/26/18 19:30 Abnorm Lymph % (Manual) 0 % 10/26/18 19:30 Nucleated RBC % Not Reportable 10/26/18 19:30 Neutrophils # (Manual) 26.2 10^3/uL (1.5-6.6) H 10/26/18 19:30 Lymphocytes # (Manual) 0.6 10^3/uL (1.5-3.5) L 10/26/18 19:30 Monocytes # (Manual) 2.0 10^3/uL (0.0-1.0) H 10/26/18 19:30 Eosinophils # (Manual) 0.0 10^3/uL (0-0.7) 10/26/18 19:30 Basophils # (Manual) 0.3 10^3/uL (0-0.1) H 10/26/18 19:30 Differential Comment MANUAL DIFFERENTIAL 10/26/18 19:30 Manual Slide Review Indicated 10/27/18 07:14 WBC Morphology NORMAL APPEARANCE (NORMAL) 10/26/18 19:30 Platelet Estimate NORMAL (130-450,000) (NORMAL) 10/26/18 19:30 Platelet Morphology NORMAL APPEARANCE (NORMAL) 10/26/18 19:30 RBC Morph Micro Appear 1+ ANISOCYTOSIS (NORMAL) 1+ MACROCYTOSIS (NORMAL) 10/26/18 19:30 RBC Morph Micro Appear 1+ ANISOCYTOSIS (NORMAL) 1+ MACROCYTOSIS (NORMAL) 10/26/18 19:30 PT 13.7 secs (9.9-12.6) H 10/27/18 04:55 INR 1.2 (0.8-1.2) 10/27/18 04:55 D-Dimer 913.0 ng/mL (200.0-255.0) H 10/27/18 04:55 Sodium 139 mmol/L (135-145) 10/27/18 04:55 Potassium 4.2 mmol/L (3.5-5.0) 10/27/18 04:55 Chloride 113 mmol/L (101-111) H 10/27/18 04:55 Carbon Dioxide 16 mmol/L (21-32) L 10/27/18 04:55 Anion Gap 10.0 (6-13) 10/27/18 04:55 BUN 26 mg/dL (6-20) H 10/27/18 04:55 Creatinine 1.7 mg/dL (0.4-1.0) H 10/27/18 04:55 Estimated GFR (MDRD) 31 (>89) L 10/27/18 04:55 Glucose 106 mg/dL (70-100) H 10/27/18 04:55 Lactic Acid 1.7 mmol/L (0.5-2.2) 10/26/18 23:15 Calcium 7.6 mg/dL (8.5-10.3) L 10/27/18 04:55 Magnesium 1.7 mg/dL (1.7-2.8) 10/26/18 19:30 Total Bilirubin 1.2 mg/dL (0.2-1.0) H 10/27/18 04:55 AST 47 IU/L (10-42) H 10/27/18 04:55 ALT 86 IU/L (10-60) H 10/27/18 04:55 Alkaline Phosphatase 166 IU/L (42-121) H 10/27/18 04:55 Lactate Dehydrogenase 170 IU/L (91-225) 10/27/18 04:55 Total Creatine Kinase 71 IU/L (22-269) 10/26/18 19:30 Total Protein 5.5 g/dL (6.7-8.2) L 10/27/18 04:55 Albumin 2.3 g/dL (3.2-5.5) L 10/27/18 04:55 Globulin 3.2 g/dL (2.1-4.2) 10/27/18 04:55 Albumin/Globulin Ratio 0.7 (1.0-2.2) L 10/27/18 04:55 Lipase 26 U/L (22-51) 10/26/18 19:30 Urine Color LT. YELLOW 10/26/18 19:59 Urine Clarity HAZY (CLEAR) 10/26/18 19:59 Urine pH 5.0 PH (5.0-7.5) 10/26/18 19:59 Ur Specific Delta 1.025 (1.002-1.030) 10/26/18 19:59 Urine Protein 30 mg/dL (NEGATIVE) H 10/26/18 19:59 Urine Glucose (UA) NEGATIVE mg/dL (NEGATIVE) 10/26/18 19:59 Urine Ketones NEGATIVE mg/dL (NEGATIVE) 10/26/18 19:59 Urine Occult Blood NEGATIVE (NEGATIVE) 10/26/18 19:59 Urine Nitrite POSITIVE (NEGATIVE) H 10/26/18 19:59 Urine Bilirubin NEGATIVE (NEGATIVE) 10/26/18 19:59 Urine Urobilinogen 0.2 (NORMAL) E.U./dL (NORMAL) 10/26/18 19:59 Ur Leukocyte Esterase SMALL (NEGATIVE) H 10/26/18 19:59 Urine RBC None Seen /HPF (0-5) 10/26/18 19:59 Urine WBC >25 /HPF (0-5) H 10/26/18 19:59 Urine WBC Clumps PRESENT 10/26/18 19:59 Ur Squamous Epith Cells NONE SEEN (<= Few) 10/26/18 19:59 Urine Bacteria Moderate /HPF (None Seen) H 10/26/18 19:59 Ur Microscopic Review INDICATED 10/26/18 19:59 Urine Culture Comments INDICATED 10/26/18 19:59 Nasal Screen MRSA (PCR) NEGATIVE (NEGATIVE) 10/26/18 00:11 Influenza A (Rapid) Negative (Negative) 10/26/18 19:39 Influenza B (Rapid) Negative (Negative) 10/26/18 19:39 - Procedures Procedures: Procedures INCIS W REM OF FORIEGN BODY OR DEV FROM SKIN & SUBCUT TISSUE (03/24/13) PACKED CELL TRANSFUSION (05/08/14) VENOUS CATHETERIZATION NEC (03/24/13) Sepsis Event Note (H) - Evaluation Current Stage of Sepsis: Sepsis Possible source of Sepsis: positive: Pulmonary, Genitourinary
[2018-10-27 07:43] LABS: RBC MORPHOLOGY (MULTIPLE) 2+ ANISOCYTOSIS (NORMAL)
[2018-10-27] MEDS ORDERED: NORepinephrine 8 MG in DEXTROSE 5% 250ML IV SCH (09:00)
[2018-10-27] MEDS: CHOLECALCIFEROL 1,000 UNIT TABLET PO SCH (09:07)
[2018-10-27] MEDS: CYANOCOBALAMIN 500 MCG TABLET PO SCH (09:07)
[2018-10-27] MEDS: FOLIC ACID 1 MG TABLET PO SCH (09:07)
[2018-10-27] MEDS: FAMOTIDINE 20 MG/2 ML VIAL IVP SCH ×2 (09:08→20:53)
[2018-10-27] MEDS: ENOXAPARIN 40 MG/0.4 ML SYRINGE SUBQ SCH (09:14)
[2018-10-27] MEDS: MORPHINE SULFATE ER 30 MG TABLET PO SCH (09:14)
--- NOTE | 2018-10-27 10:05 | XRAY Report ---
Reason: S/P CVP LINE PLACEMENT Procedure Date: 10/26/2018 Accession Number: [id number] / [id number] Procedure: XR - Chest for Line Placement CPT Code: FULL RESULT: EXAM: CHEST RADIOGRAPHY EXAM DATE: 10/26/2018 10:37 PM. CLINICAL HISTORY: Line placement COMPARISON: None. TECHNIQUE: 1 view. FINDINGS: Lungs/Pleura: Patchy left basilar infiltrate. No effusion or pneumothorax. Mediastinum: Within exam limitations, the cardiomediastinal contour is normal. Other: Right jugular central venous catheter terminating in the right atrium. IMPRESSION: Patchy left basilar infiltrate. Right jugular central venous catheter terminating in the right atrium. No pneumothorax. RADIA
[2018-10-27] MEDS: SODIUM BICARBONATE 100 MEQ in DEXTROSE 5% 1,000 ML IV SCH ×2 (11:11→22:00)
[2018-10-27 11:41] LABS: VBG BASE EXCESS -7.4 mmol/L (-2 - +2); VBG PCO2 33.3 mmHg (41-51); VBG PH 7.34 (7.31-7.41); VBG PO2 53.5 mmHg (25-47); VBG TOTAL CO2 18.6 mmol/L (24-29)
[2018-10-27] MEDS: ZINC SULFATE 220 MG CAPSULE PO SCH (11:44)
[2018-10-27 11:53] LABS: CALCIUM 7.3 mg/dL (8.5-10.3); CREATININE 1.9 mg/dL (0.4-1.0)
[2018-10-27] MEDS ORDERED: SODIUM CHLORIDE 0.9% 500 ML IV ONE (12:04)
[2018-10-27] MEDS: PROCHLORPERAZINE 10 MG/2 ML VIAL IVP PRN (12:54)
[2018-10-27] MEDS: SODIUM CHLORIDE 0.9% 1,000 ML IV SCH ×2 (13:04→21:02)
[2018-10-27 13:37] LABS: MAGNESIUM 1.8 mg/dL (1.7-2.8); PHOSPHORUS 3.7 mg/dL (2.5-4.6)
--- NOTE | 2018-10-27 16:21 | CONSULTATION NOTE ---
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 This was a rough and difficult course, that included staying 8 months down town, with her family meeting to [facility] and provide her caregiving support. 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 She has been on combination treatment for the last several years, with increasing numbers regarding her multiple adenomaIgG kappa, with noted progression into the with change in her treatment plan. She was started on Pomalyst/Decadron/carfilzomib in October, but had to hold due to abnormal liver function tests. She did receive treatment yesterday, but developed chills, fever, and temp at 102. She was admitted for sepsis, requiring CVP line placement, elevated white blood cell count, UTI, pneumonia, metabolic acidosis, as well as acute renal insufficiency. She is feeling somewhat nauseous at baseline, And it is eating small amounts, introduced palliative care. I am familiar with her from the community as well as recently caring for her mother who transition to hospice from the hospital. Patient does present with moderate to high symptom burden, her most problematic symptoms include fatigue, is also experiencing grief reaction, as well as chronic pain. Introduced palliative care as a layer support, in particular given the seriousness of her illness, reassured not here for hospice but to esta blish rapport and ongoing relationship for support and anticipatory guidance. 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 They are awaiting transition to a new home in [place]. She also has daughter Monique who rents a local adult family home. Lauren was caregiver for her mother for last couple of years, recently on hospice. She has 2 brothers, feels like she is managing okay and has appropriate support Family History - Family History Family History: Mother: , CVA/TIA, Father: , OR, Brother: Alive and Well Medications/Allergies - Medications Active Medication List: Active Medications Acetaminophen (Tylenol) 650 mg PO Q4HR PRN PRN Reason: Pain or Fever > 38C (100.4F) Albuterol () 2.5 mg INH Q4HR PRN PRN Reason: Wheezing Cholecalciferol (Vitamin D3) 1,000 unit PO DAILY [facility] Last Admin: 10/27/18 09:07 Dose: 1,000 unit Cyanocobalamin (Vitamin B-12) 1,000 mcg PO DAILY [facility] Last Admin: 10/27/18 09:07 Dose: 1,000 mcg Dexamethasone (Decadron) 40 mg PO Q7D [facility] Last Admin: 10/27/18 02:01 Dose: Not Given Diphenoxylate HCl/Atropine (Lomotil) 1 tab PO PRN PRN PRN Reason: Diarrhea Enoxaparin Sodium (Lovenox) 40 mg SUBQ DAILY [facility] Last Admin: 10/27/18 09:14 Dose: Not Given Famotidine (Pepcid) 20 mg IVP BID [facility] Last Admin: 10/27/18 09:08 Dose: 20 mg Folic Acid () 1 mg PO DAILY [facility] Last Admin: 10/27/18 09:07 Dose: 1 mg Heparin Sodium (Beef Lung) () 30 - 50 unit IVP PRN PRN PRN Reason: Central Line Protocol (<24 hr) Piperacillin Sod/Tazobactam (Sod 4.5 gm/ Sodium Chloride) 100 mls @ 200 mls/hr IV Q6H [facility] Last Infusion: 10/27/18 10:57 Dose: Infused Levofloxacin (Levaquin 250 Mg/50 Ml) 250 mg in 50 mls @ 50 mls/hr IV Q24H [facility] Sodium Bicarbonate 100 meq/ (Dextrose) 1,100 mls @ 100 mls/hr IV .Q11H [facility] Last Infusion: 10/27/18 13:17 Dose: 100 mls/hr Vancomycin HCl 1 gm/ Sodium (Chloride) 250 mls @ 167 mls/hr IV Q24H [facility] Sodium Chloride (Normal Saline 0.9%) 1,000 mls @ 125 mls/hr IV .Q8H [facility] Last Admin: 10/27/18 13:04 Dose: 125 mls/hr Ketorolac Tromethamine (Toradol Inj (30mg)) 30 mg IVP Q6HR PRN PRN Reason: PAIN Stop: 10/31/18 21:54 Last Admin: 10/27/18 04:28 Dose: 30 mg Lorazepam (Ativan) 1 mg PO Q6HR PRN PRN Reason: Nausea / Vomiting Morphine Sulfate (Ms Contin) 30 mg PO DAILY [facility] Last Admin: 10/27/18 09:14 Dose: 30 mg Prochlorperazine Edisylate (Compazine Inj) 10 mg IVP Q4HR PRN PRN Reason: Nausea / Vomiting Last Admin: 10/27/18 12:54 Dose: 10 mg Sodium Chloride (Normal Saline Flush 0.9%) 10 ml IVP 0100,0900,1700 [facility] Last Admin: 10/27/18 09:20 Dose: 20 ml Sodium Chloride (Normal Saline Flush 0.9%) 10 ml IVP PRN PRN PRN Reason: NEEDED PER PROVIDER ORDERS Last Admin: 10/27/18 10:17 Dose: 10 ml Sodium Chloride (Normal Saline Flush 0.9%) 20 ml IVP PRN PRN PRN Reason: After Blood Draw Last Admin: 10/27/18 11:21 Dose: 30 ml Valacyclovir HCl (Valtrex) 500 mg PO BID [facility] Last Admin: 10/27/18 09:07 Dose: 500 mg Zinc Sulfate () 220 mg PO DAILY [facility] Last Admin: 10/27/18 11:44 Dose: 220 mg Metoprolol Succinate [Toprol Xl] 50 mg PO DAILY PM 03/08/13 Multivitamin [Multivitamins] 1 each PO DAILY 03/08/13 valACYclovir [Valtrex] 500 mg PO BID 03/08/13 Zinc Sulfate 220 mg PO DAILY 12/14/13 Ascorbic Acid [C-1000] 500 mg PO DAILY 02/20/15 Folic Acid 1 mg PO DAILY 02/20/15 Ondansetron HCl [Zofran] 8 mg PO Q8HR PRN 02/20/15 Sulfamethoxazole/Trimethoprim [Bactrim Ds Tablet] 1 each PO QPM 02/20/15 Cholecalciferol (Vitamin D3) [Vitamin D3] 1,000 unit PO DAILY 06/07/15 Morphine Sulfate [Ms Contin] 30 mg PO DAILY 11/13/15 dexAMETHasone [Decadron] 40 mg PO Q7D 02/05/16 Albuterol Sulf [Ventolin Hfa Inhaler] 2 puffs INH Q4HR PRN 04/22/16 Cyanocobalamin (Vitamin B-12) [Vitamin B-12] 1,000 mcg PO DAILY 10/30/17 Diphenoxylate/Atropine [Lomotil] 1 tab ORAL PRN PRN MDD 8 tabs 01/09/18 Pomalidomide [Pomalyst] 4 mg PO DAILY 10/12/18 Atorvastatin Calcium 20 mg PO QPM 10/27/18 - Allergies Allergies/Adverse Reactions: Allergies Allergy/AdvReac Type Severity Reaction Status Date / Time adhesive tape Allergy Rash Verified 10/27/18 06:02 ceftazidime Allergy Rash Verified 10/26/18 18:53 doxorubicin HCl pegylated Allergy Hives Verified 10/26/18 18:53 lipo... * [From Doxil] doxycycline Allergy Rash Verified 10/26/18 18:53 acetaminophen [From Vicodin] AdvReac Nausea Verified 10/26/18 18:53 hydrocodone bitartrate * AdvReac Nausea Verified 10/26/18 18:53 [From Vicodin] Review of Systems - Constitutional Constitutional: reports: Fatigue, Fever, Chills, Weakness, Poor appetite, Weight loss - Eyes Eyes: reports: Vision loss, Corrective lenses - Ears, Nose & Throat Ears, Nose & Throat: reports: Dental decay, Dry mouth - Cardiovascular Cardiovascular: reports: Exertional dyspnea, Decr. exercise tolerance. denies: Chest pain - Respiratory Respiratory: reports: Cough (started today; dry), SOB with exertion. 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) - Psychiatric Psychiatric: reports: Other (grief reaction recent loss of mother) - Endocrine Endocrine: reports: Intolerance to cold - Hematologic/Lymphatic Hematologic/Lymphatic: reports: Anemia, Bruising, Bleeding tendencies, Recurrent infections - All Other Systems All Other Systems: reports: Reviewed and negative Physical Exam - Vital Signs Vital Signs: Vital Signs x48h Pulse Resp BP Pulse Ox 10/27/18 14:06 65 13 100/63 99 10/27/18 12:31 98/62 10/27/18 10:45 83/54 L 10/27/18 10:16 62 124/62 10/27/18 10:12 52 L 84/60 L 10/27/18 10:00 62 18 102/66 95 10/27/18 09:55 55 L 120/78 10/27/18 09:45 54 L 122/74 10/27/18 09:40 54 L 132/77 H 10/27/18 09:34 51 L 18 138/74 H 97 - Physical Exam General Appearance: positive: No acute distress Eyes Bilateral: positive: Normal inspection ENT: positive: Other (poor dentition) Neck: positive: Trachea midline, Other (CVP right of neck) Cardiovascular: positive: Regular rate & rhythm Respiratory: positive: No respiratory distress, Rales (crackles LLL) Abdomen: positive: Non-tender, Soft, Nml bowel sounds Skin: positive: Pallor, Dryness, Bruising Extremities: positive: No pedal edema Neurologic/Psychiatric: positive: Oriented x3, Mood/affect nml, Weakness Palliative Care - POLST Patient has POLST: No POLST Status: Full Code Pain: Pain unchanged, Location (Patient's pain is located upper thoracic mid back area, does have known history of compression fractures. Patient reports exacerbation of pain with standing, also sometimes sitting secondary to also in her coccyx. She does get relief with position changes, on lying down. She has not found opioids particularly helpful in her pain, she is using MS Contin 30 mg daily, has been on it up to 3 times daily. Does not feel currently needs any adjustments, but did discuss pain regimen.) Tiredness/Fatigue: Severe (7-10), Comment (This is the most impactful symptom for patient's quality of life, does limit her ability to tolerate activity, needing to pace herself, and gets tired of always feeling tired. She is able to manage her own ADLs, but can be easily "spent".) Drowsiness/Sedation: Mild (1-3) Nausea: Moderate (4-6) (at time of visit; has received medication) Depression: Moderate (4-6) (depressive symptoms related to loss of mother; now acutely ; has been treated in past for depression) Anxiety: Moderate (4-6) Dyspnea: Mild (1-3) Anorexia: Moderate (4-6) Constipation: No Performance Status: Patient is ambulatory, is worried about her functional status and transitioning home. She does have a daughter with her, does not like to be a burden. Is hoping she will feel better and more functional on discharge. - Palliative Care Discussion: Discussed patient's current understanding of illness, does understand this is palliative and treatment, that medications are being changed up to manage her disease. She has confidence in Dr. Lorenz, and feels confident in his management. Counseling provided related to the role of palliative care for patients with progressive disease, focusing on quality of life, symptom management, and anticipatory guidance. Did introduce advanced care planning, reports she has coped by keeping focused on managing her disease in the next treatment. She is "not letter self think that forehead". We did introduce all the conversation regarding goals of care, advanced care planning, recommended priority is to complete D POA. At this point in time she would pick her christa Amaya, with Nae's follow-up. Form provided will see if notary on-site tomorrow. Introduced the POLST, the role of place and enter action with the system, DNA R is not do not treat, provided with form for review, but is not necessary to complete if she is a full code. Also introduced 5 wishes as a way to communicate to her daughter's review forward what kind of decisions and values she has. Addressed questions brought up during conversation. Results - Lab Results Lab results reviewed: Yes Fish Bones: 10/27/18 07:14 10/27/18 11:25 Lab and Imaging Results: Lab Results x24hrs 10/27/18 10/27/18 10/27/18 Range/Units 11:28 11:25 11:25 WBC (4.8-10.8) x10^3/uL RBC (4.20-5.40) 10^6/uL Hgb (12.0-16.0) g/dL Hct (37.0-47.0) % MCV (81.0-99.0) fL MCH (27.0-31.0) pg MCHC (32.0-36.0) g/dL RDW (12.0-15.0) % Plt Count (130-450) 10^3/uL MPV (7.9-10.8) fL Neut # (Auto) Lymph # (Auto) [place] # (Auto) Eos # (Auto) Baso # (Auto) Absolute Nucleated RBC Total Counted Band Neuts % (Manual) (0 - 10) % Abnorm Lymph % (Manual) % Nucleated RBC % Neutrophils # (Manual) (1.5-6.6) 10^3/uL Lymphocytes # (Manual) (1.5-3.5) 10^3/uL Monocytes # (Manual) (0.0-1.0) 10^3/uL Eosinophils # (Manual) (0-0.7) 10^3/uL Basophils # (Manual) (0-0.1) 10^3/uL Differential Comment Manual Slide Review WBC Morphology (NORMAL) Platelet Estimate (NORMAL) Platelet Morphology (NORMAL) RBC Morph Micro Appear (NORMAL) PT (9.9-12.6) secs INR (0.8-1.2) D-Dimer (200.0-255.0) ng/mL VBG pH 7.340 (7.31-7.41) VBG pCO2 33.3 L (41-51) mmHg VBG pO2 53.5 H (25-47) mmHg VBG HCO3 17.6 L (23-28) mmol/L VBG Total CO2 18.6 L (24-29) mmol/L VBG O2 Saturation 88.2 H (60-80) % VBG Base Excess -7.4 L (-2 - +2) mmol/L Sodium 136 (135-145) mmol/L Potassium 3.8 (3.5-5.0) mmol/L Chloride 109 (101-111) mmol/L Carbon Dioxide 17 L (21-32) mmol/L Anion Gap 10.0 (6-13) BUN 29 H (6-20) mg/dL Creatinine 1.9 H (0.4-1.0) mg/dL Estimated GFR (MDRD) 27 L (>89) Glucose 95 (70-100) mg/dL Lactic Acid (0.5-2.2) mmol/L Calcium 7.3 L (8.5-10.3) mg/dL Phosphorus 3.7 (2.5-4.6) mg/dL Magnesium 1.8 (1.7-2.8) mg/dL Total Bilirubin (0.2-1.0) mg/dL AST (10-42) IU/L ALT (10-60) IU/L Alkaline Phosphatase (42-121) IU/L Lactate Dehydrogenase (91-225) IU/L Total Creatine Kinase (22-269) IU/L Total Protein (6.7-8.2) g/dL Albumin (3.2-5.5) g/dL Globulin (2.1-4.2) g/dL Albumin/Globulin Ratio (1.0-2.2) Lipase (22-51) U/L Urine Color Urine Clarity (CLEAR) Urine pH (5.0-7.5) PH Ur Specific [place] (1.002-1.030) Urine Protein (NEGATIVE) mg/dL Urine Glucose (UA) (NEGATIVE) mg/dL Urine Ketones (NEGATIVE) mg/dL Urine Occult Blood (NEGATIVE) Urine Nitrite (NEGATIVE) Urine Bilirubin (NEGATIVE) Urine Urobilinogen (NORMAL) E.U./dL Ur Leukocyte Esterase (NEGATIVE) Urine RBC (0-5) /HPF Urine WBC (0-5) /HPF Urine WBC Clumps Ur Squamous Epith Cells (<= Few) Urine Bacteria (None Seen) /HPF Ur Microscopic Review Urine Culture Comments Nasal Screen MRSA (PCR) (NEGATIVE) Influenza A (Rapid) (Negative) Influenza B (Rapid) (Negative) 10/27/18 10/27/18 10/27/18 Range/Units 07:14 04:55 04:55 WBC 30.9 H (4.8-10.8) x10^3/uL RBC 3.16 L (4.20-5.40) 10^6/uL Hgb 10.6 L (12.0-16.0) g/dL Hct 31.9 L (37.0-47.0) % MCV 101.2 H (81.0-99.0) fL MCH 33.7 H (27.0-31.0) pg MCHC 33.4 (32.0-36.0) g/dL RDW 16.1 H (12.0-15.0) % Plt Count 261 (130-450) 10^3/uL MPV 7.7 L (7.9-10.8) fL Neut # (Auto) 24.5 H Lymph # (Auto) 1.7 [place] # (Auto) 4.1 H Eos # (Auto) 0.5 Baso # (Auto) 0.2 H Absolute Nucleated RBC 0.00 Total Counted Band Neuts % (Manual) (0 - 10) % Abnorm Lymph % (Manual) % Nucleated RBC % 0.0 Neutrophils # (Manual) (1.5-6.6) 10^3/uL Lymphocytes # (Manual) (1.5-3.5) 10^3/uL Monocytes # (Manual) (0.0-1.0) 10^3/uL Eosinophils # (Manual) (0-0.7) 10^3/uL Basophils # (Manual) (0-0.1) 10^3/uL Differential Comment Manual Slide Review Indicated WBC Morphology (NORMAL) Platelet Estimate (NORMAL) Platelet Morphology (NORMAL) RBC Morph Micro Appear 2+ ANISOCYTOSIS (NORMAL) PT (9.9-12.6) secs INR (0.8-1.2) D-Dimer (200.0-255.0) ng/mL VBG pH (7.31-7.41) VBG pCO2 (41-51) mmHg VBG pO2 (25-47) mmHg VBG HCO3 (23-28) mmol/L VBG Total CO2 (24-29) mmol/L VBG O2 Saturation (60-80) % VBG Base Excess (-2 - +2) mmol/L Sodium 139 (135-145) mmol/L Potassium 4.2 (3.5-5.0) mmol/L Chloride 113 H (101-111) mmol/L Carbon Dioxide 16 L (21-32) mmol/L Anion Gap 10.0 (6-13) BUN 26 H (6-20) mg/dL Creatinine 1.7 H (0.4-1.0) mg/dL Estimated GFR (MDRD) 31 L (>89) Glucose 106 H (70-100) mg/dL Lactic Acid (0.5-2.2) mmol/L Calcium 7.6 L (8.5-10.3) mg/dL Phosphorus (2.5-4.6) mg/dL Magnesium (1.7-2.8) mg/dL Total Bilirubin 1.2 H (0.2-1.0) mg/dL AST 47 H (10-42) IU/L ALT 86 H (10-60) IU/L Alkaline Phosphatase 166 H (42-121) IU/L Lactate Dehydrogenase 170 (91-225) IU/L Total Creatine Kinase (22-269) IU/L Total Protein 5.5 L (6.7-8.2) g/dL Albumin 2.3 L (3.2-5.5) g/dL Globulin 3.2 (2.1-4.2) g/dL Albumin/Globulin Ratio 0.7 L (1.0-2.2) Lipase (22-51) U/L Urine Color Urine Clarity (CLEAR) Urine pH (5.0-7.5) PH Ur Specific [place] (1.002-1.030) Urine Protein (NEGATIVE) mg/dL Urine Glucose (UA) (NEGATIVE) mg/dL Urine Ketones (NEGATIVE) mg/dL Urine Occult Blood (NEGATIVE) Urine Nitrite (NEGATIVE) Urine Bilirubin (NEGATIVE) Urine Urobilinogen (NORMAL) E.U./dL Ur Leukocyte Esterase (NEGATIVE) Urine RBC (0-5) /HPF Urine WBC (0-5) /HPF Urine WBC Clumps Ur Squamous Epith Cells (<= Few) Urine Bacteria (None Seen) /HPF Ur Microscopic Review Urine Culture Comments Nasal Screen MRSA (PCR) (NEGATIVE) Influenza A (Rapid) (Negative) Influenza B (Rapid) (Negative) 10/27/18 10/26/18 10/26/18 Range/Units 04:55 23:15 19:59 WBC (4.8-10.8) x10^3/uL RBC (4.20-5.40) 10^6/uL Hgb (12.0-16.0) g/dL Hct (37.0-47.0) % MCV (81.0-99.0) fL MCH (27.0-31.0) pg MCHC (32.0-36.0) g/dL RDW (12.0-15.0) % Plt Count (130-450) 10^3/uL MPV (7.9-10.8) fL Neut # (Auto) Lymph # (Auto) [place] # (Auto) Eos # (Auto) Baso # (Auto) Absolute Nucleated RBC Total Counted Band Neuts % (Manual) (0 - 10) % Abnorm Lymph % (Manual) % Nucleated RBC % Neutrophils # (Manual) (1.5-6.6) 10^3/uL Lymphocytes # (Manual) (1.5-3.5) 10^3/uL Monocytes # (Manual) (0.0-1.0) 10^3/uL Eosinophils # (Manual) (0-0.7) 10^3/uL Basophils # (Manual) (0-0.1) 10^3/uL Differential Comment Manual Slide Review WBC Morphology (NORMAL) Platelet Estimate (NORMAL) Platelet Morphology (NORMAL) RBC Morph Micro Appear (NORMAL) PT 13.7 H (9.9-12.6) secs INR 1.2 (0.8-1.2) D-Dimer 913.0 H (200.0-255.0) ng/mL VBG pH (7.31-7.41) VBG pCO2 (41-51) mmHg VBG pO2 (25-47) mmHg VBG HCO3 (23-28) mmol/L VBG Total CO2 (24-29) mmol/L VBG O2 Saturation (60-80) % VBG Base Excess (-2 - +2) mmol/L Sodium (135-145) mmol/L Potassium (3.5-5.0) mmol/L Chloride (101-111) mmol/L Carbon Dioxide (21-32) mmol/L Anion Gap (6-13) BUN (6-20) mg/dL Creatinine (0.4-1.0) mg/dL Estimated GFR (MDRD) (>89) Glucose (70-100) mg/dL Lactic Acid 1.7 (0.5-2.2) mmol/L Calcium (8.5-10.3) mg/dL Phosphorus (2.5-4.6) mg/dL Magnesium (1.7-2.8) mg/dL Total Bilirubin (0.2-1.0) mg/dL AST (10-42) IU/L ALT (10-60) IU/L Alkaline Phosphatase (42-121) IU/L Lactate Dehydrogenase (91-225) IU/L Total Creatine Kinase (22-269) IU/L Total Protein (6.7-8.2) g/dL Albumin (3.2-5.5) g/dL Globulin (2.1-4.2) g/dL Albumin/Globulin Ratio (1.0-2.2) Lipase (22-51) U/L Urine Color LT. YELLOW Urine Clarity HAZY (CLEAR) Urine pH 5.0 (5.0-7.5) PH Ur Specific [place] 1.025 (1.002-1.030) Urine Protein 30 H (NEGATIVE) mg/dL Urine Glucose (UA) NEGATIVE (NEGATIVE) mg/dL Urine Ketones NEGATIVE (NEGATIVE) mg/dL Urine Occult Blood NEGATIVE (NEGATIVE) Urine Nitrite POSITIVE H (NEGATIVE) Urine Bilirubin NEGATIVE (NEGATIVE) Urine Urobilinogen 0.2 (NORMAL) (NORMAL) E.U./dL Ur Leukocyte Esterase SMALL H (NEGATIVE) Urine RBC None Seen (0-5) /HPF Urine WBC >25 H (0-5) /HPF Urine WBC Clumps PRESENT Ur Squamous Epith Cells NONE SEEN (<= Few) Urine Bacteria Moderate H (None Seen) /HPF Ur Microscopic Review INDICATED Urine Culture Comments INDICATED Nasal Screen MRSA (PCR) (NEGATIVE) Influenza A (Rapid) (Negative) Influenza B (Rapid) (Negative) 10/26/18 10/26/18 10/26/18 Range/Units 19:39 19:30 19:30 WBC (4.8-10.8) x10^3/uL RBC (4.20-5.40) 10^6/uL Hgb (12.0-16.0) g/dL Hct (37.0-47.0) % MCV (81.0-99.0) fL MCH (27.0-31.0) pg MCHC (32.0-36.0) g/dL RDW (12.0-15.0) % Plt Count (130-450) 10^3/uL MPV (7.9-10.8) fL Neut # (Auto) Lymph # (Auto) [place] # (Auto) Eos # (Auto) Baso # (Auto) Absolute Nucleated RBC Total Counted Band Neuts % (Manual) (0 - 10) % Abnorm Lymph % (Manual) % Nucleated RBC % Neutrophils # (Manual) (1.5-6.6) 10^3/uL Lymphocytes # (Manual) (1.5-3.5) 10^3/uL Monocytes # (Manual) (0.0-1.0) 10^3/uL Eosinophils # (Manual) (0-0.7) 10^3/uL Basophils # (Manual) (0-0.1) 10^3/uL Differential Comment Manual Slide Review WBC Morphology (NORMAL) Platelet Estimate (NORMAL) Platelet Morphology (NORMAL) RBC Morph Micro Appear (NORMAL) PT (9.9-12.6) secs INR (0.8-1.2) D-Dimer (200.0-255.0) ng/mL VBG pH (7.31-7.41) VBG pCO2 (41-51) mmHg VBG pO2 (25-47) mmHg VBG HCO3 (23-28) mmol/L VBG Total CO2 (24-29) mmol/L VBG O2 Saturation (60-80) % VBG Base Excess (-2 - +2) mmol/L Sodium (135-145) mmol/L Potassium (3.5-5.0) mmol/L Chloride (101-111) mmol/L Carbon Dioxide (21-32) mmol/L Anion Gap (6-13) BUN (6-20) mg/dL Creatinine (0.4-1.0) mg/dL Estimated GFR (MDRD) (>89) Glucose (70-100) mg/dL Lactic Acid 1.3 (0.5-2.2) mmol/L Calcium (8.5-10.3) mg/dL Phosphorus (2.5-4.6) mg/dL Magnesium 1.7 (1.7-2.8) mg/dL Total Bilirubin (0.2-1.0) mg/dL AST (10-42) IU/L ALT (10-60) IU/L Alkaline Phosphatase (42-121) IU/L Lactate Dehydrogenase (91-225) IU/L Total Creatine Kinase 71 (22-269) IU/L Total Protein (6.7-8.2) g/dL Albumin (3.2-5.5) g/dL Globulin (2.1-4.2) g/dL Albumin/Globulin Ratio (1.0-2.2) Lipase (22-51) U/L Urine Color Urine Clarity (CLEAR) Urine pH (5.0-7.5) PH Ur Specific [place] (1.002-1.030) Urine Protein (NEGATIVE) mg/dL Urine Glucose (UA) (NEGATIVE) mg/dL Urine Ketones (NEGATIVE) mg/dL Urine Occult Blood (NEGATIVE) Urine Nitrite (NEGATIVE) Urine Bilirubin (NEGATIVE) Urine Urobilinogen (NORMAL) E.U./dL Ur Leukocyte Esterase (NEGATIVE) Urine RBC (0-5) /HPF Urine WBC (0-5) /HPF Urine WBC Clumps Ur Squamous Epith Cells (<= Few) Urine Bacteria (None Seen) /HPF Ur Microscopic Review Urine Culture Comments Nasal Screen MRSA (PCR) (NEGATIVE) Influenza A (Rapid) Negative (Negative) Influenza B (Rapid) Negative (Negative) 10/26/18 10/26/18 10/26/18 Range/Units 19:30 19:30 00:11 WBC 29.1 H (4.8-10.8) x10^3/uL RBC 3.50 L (4.20-5.40) 10^6/uL Hgb 12.0 (12.0-16.0) g/dL Hct 35.3 L (37.0-47.0) % MCV 100.8 H (81.0-99.0) fL MCH 34.4 H (27.0-31.0) pg MCHC 34.1 (32.0-36.0) g/dL RDW 15.7 H (12.0-15.0) % Plt Count 346 (130-450) 10^3/uL MPV 7.9 (7.9-10.8) fL Neut # (Auto) Not Reportable Lymph # (Auto) Not Reportable [place] # (Auto) Not Reportable Eos # (Auto) Not Reportable Baso # (Auto) Not Reportable Absolute Nucleated RBC Not Reportable Total Counted 100 Band Neuts % (Manual) 0 (0 - 10) % Abnorm Lymph % (Manual) 0 % Nucleated RBC % Not Reportable Neutrophils # (Manual) 26.2 H (1.5-6.6) 10^3/uL Lymphocytes # (Manual) 0.6 L (1.5-3.5) 10^3/uL Monocytes # (Manual) 2.0 H (0.0-1.0) 10^3/uL Eosinophils # (Manual) 0.0 (0-0.7) 10^3/uL Basophils # (Manual) 0.3 H (0-0.1) 10^3/uL Differential Comment MANUAL DIFFERENTIAL Manual Slide Review WBC Morphology NORMAL APPEARANCE (NORMAL) Platelet Estimate NORMAL (130-450,000) (NORMAL) Platelet Morphology NORMAL APPEARANCE (NORMAL) RBC Morph Micro Appear 1+ MACROCYTOSIS (NORMAL) PT (9.9-12.6) secs INR (0.8-1.2) D-Dimer (200.0-255.0) ng/mL VBG pH (7.31-7.41) VBG pCO2 (41-51) mmHg VBG pO2 (25-47) mmHg VBG HCO3 (23-28) mmol/L VBG Total CO2 (24-29) mmol/L VBG O2 Saturation (60-80) % VBG Base Excess (-2 - +2) mmol/L Sodium 133 L (135-145) mmol/L Potassium 4.2 (3.5-5.0) mmol/L Chloride 103 (101-111) mmol/L Carbon Dioxide 17 L (21-32) mmol/L Anion Gap 13.0 (6-13) BUN 23 H (6-20) mg/dL Creatinine 1.1 H (0.4-1.0) mg/dL Estimated GFR (MDRD) 51 L (>89) Glucose 110 H (70-100) mg/dL Lactic Acid (0.5-2.2) mmol/L Calcium 8.6 (8.5-10.3) mg/dL Phosphorus (2.5-4.6) mg/dL Magnesium (1.7-2.8) mg/dL Total Bilirubin 1.0 (0.2-1.0) mg/dL AST 59 H (10-42) IU/L ALT 118 H (10-60) IU/L Alkaline Phosphatase 235 H (42-121) IU/L Lactate Dehydrogenase (91-225) IU/L Total Creatine Kinase (22-269) IU/L Total Protein 7.1 (6.7-8.2) g/dL Albumin 3.1 L (3.2-5.5) g/dL Globulin 4.0 (2.1-4.2) g/dL Albumin/Globulin Ratio 0.8 L (1.0-2.2) Lipase 26 (22-51) U/L Urine Color Urine Clarity (CLEAR) Urine pH (5.0-7.5) PH Ur Specific [place] (1.002-1.030) Urine Protein (NEGATIVE) mg/dL Urine Glucose (UA) (NEGATIVE) mg/dL Urine Ketones (NEGATIVE) mg/dL Urine Occult Blood (NEGATIVE) Urine Nitrite (NEGATIVE) Urine Bilirubin (NEGATIVE) Urine Urobilinogen (NORMAL) E.U./dL Ur Leukocyte Esterase (NEGATIVE) Urine RBC (0-5) /HPF Urine WBC (0-5) /HPF Urine WBC Clumps Ur Squamous Epith Cells (<= Few) Urine Bacteria (None Seen) /HPF Ur Microscopic Review Urine Culture Comments Nasal Screen MRSA (PCR) NEGATIVE (NEGATIVE) Influenza A (Rapid) (Negative) Influenza B (Rapid) (Negative) Impression and Recommendations - Palliative Care Impression: This is a 58-year-old woman with multiple myelomaIgG kappa, with recently identified progression 07/2018. She has an extensive history related to her multiple myeloma, relapses, and hx of GVHD. She presents since acutely with sepsis, pneumonia, UTI, and is currently getting aggressive treatment for management of her infections. Palliative care introduced for support, development of rapport, and goals of care conversation. Recommendations/Counseling Done: 1. Pain of neoplastic origin, chronic back pain. Patient currently managed on MS Contin 30 mg daily, review of regimen, past history, and current levels of discomfort. Discussed satisfaction with current regimen, no changes recommended at this point in time. 2. Depression. Patient recently lost her mother, does have appropriate grief response and depressive feelings, did discuss in the context of her acute illness, Multiple myeloma, and recent loss weighing benefits and burdens of considering antidepressants. Will revisit at next visit, did encourage to participate in grief group. Has had follow-up with bereavement counselor from hospice. 3. Advanced care planning. Patient's coping has been fairly focused on managing her current condition and treatment regimen. Did introduce particularly to oj WATTS, forms provided and discussed talking with her daughters regarding her wishes. Provided 5 wishes as an example of conversations that might be included, as well as addressed questions and concerns related to the POLST. No changes to her CODE STATUS, at this point in time but aware of her seriousness of her illness. Palliative care meeting to set rapport, and introduce role, as well as initiate conversations around advanced care planning. I will plan to pursue outpatient follow-up, will follow. Patient's goals were to be able to go to [place] for her mother's memorial this weekend, she is hopeful to have recovered adequately by then. Time Spent: 75 minutes was given 50% of this done in counseling regarding goals of care, pain and symptom management, the role of palliative care and anticipatory guidance.
[2018-10-27] MEDS ORDERED: VANCOMYCIN INJ 0.75 GM in SODIUM CHLORIDE 0.9% 250 ML IV SCH (17:00)
[2018-10-27] MEDS: VANCOMYCIN INJ 1 GM in SODIUM CHLORIDE 0.9% 250 ML IV SCH (18:25)
[2018-10-27 19:27] LABS: CREATININE 1.8 mg/dL (0.4-1.0)
[2018-10-27] MEDS ORDERED: levoFLOXacin 500 MG/100 ML 500 MG/100 ML BAG IV SCH (21:00)
[2018-10-28] MEDS: PIPERACILLIN/TAZOBACTAM 4.5 GM in SODIUM CHLORIDE 0.9% MINIBAG 100 ML IV SCH ×4 (03:53→21:51)
[2018-10-28] MEDS: KETOROLAC 30 MG/ML VIAL IVP PRN (04:02)
[2018-10-28] MEDS: SODIUM CHLORIDE FLUSH 0.9% 10 ML SYRINGE IVP PRN ×5 (05:08→16:55)
[2018-10-28 05:34] LABS: BASOPHILS # (AUTO) 0.1 10^3/uL (0.0-0.1); BASOPHILS % (AUTO) 0.6 %; EOSINOPHILS # (AUTO) 0.6 10^3/uL (0.0-0.7); EOSINOPHILS % (AUTO) 5.3 %; HGB - HEMOGLOBIN 9.3 g/dL (12.0-16.0); LYMPHOCYTES # (AUTO) 1.9 10^3/uL (1.5-3.5); LYMPHOCYTES % (AUTO) 16.1 %; MEAN CORPUSCULAR HEMOGLOBIN 33.4 pg (27.0-31.0); MEAN CORPUSCULAR VOLUME 101.1 fL (81.0-99.0); MEAN PLATELET VOLUME 7.9 fL (7.9-10.8); MONOCYTES # (AUTO) 2.5 10^3/uL (0.0-1.0); NEUTROPHILS # (AUTO) 6.7 10^3/uL (1.5-6.6); PLT - PLATELET COUNT 188 10^3/uL (130-450); WHITE BLOOD COUNT 11.8 x10^3/uL (4.8-10.8)
[2018-10-28 05:50] LABS: ALBUMIN/GLOBULIN RATIO 0.7 (1.0-2.2); BILIRUBIN,TOTAL 0.8 mg/dL (0.2-1.0); CALCIUM 7.2 mg/dL (8.5-10.3); CREATININE 1.6 mg/dL (0.4-1.0); TOTAL PROTEIN 4.9 g/dL (6.7-8.2)
[2018-10-28 06:06] LABS: FOLATE 17.6 ng/mL (5.90 - >24.8)
[2018-10-28] MEDS: SODIUM CHLORIDE 0.9% 1,000 ML IV SCH (06:17)
[2018-10-28] MEDS: PROCHLORPERAZINE 10 MG/2 ML VIAL IVP PRN (07:43)
[2018-10-28] MEDS: SODIUM CHLORIDE FLUSH 0.9% 10 ML SYRINGE IVP SCH ×3 (07:46→19:42)
--- NOTE | 2018-10-28 08:24 | PROVIDER PROGRESS NOTE ---
Assessment/Plan - Problem List (1) UTI (urinary tract infection) Qualifiers: Urinary tract infection type: site unspecified Hematuria presence: without hematuria Qualified Code(s): N39.0 - Urinary tract infection, site not specified Assessment/Plan: Still awaiting urine culture [id number]. Continue empiric iv Zosyn and Levofloxacin. She is no longer in septic shock, will transfer out of ICU, increase activity, ad isak. (2) Pneumonia Qualifiers: Pneumonia type: due to unspecified organism Laterality: left Lung location: lower lobe of lung Qualified Code(s): J18.1 - Lobar pneumonia, unspecified organism Assessment/Plan: No sputum production, to send a sample for culture. Her exam is now consistent with an infiltrate in the L base, now that she was hydrated. Continue empiric iv Vanco, Zosyn nd Levofloxacin (3) Metabolic acidosis Assessment/Plan: Despite >24 hours on iv bicarb drip, her serum CO2 is still low at 19. She may have RTA. Will stop the iv bicarb drip, monitor BMP for CO2 later today, to see if she needs po Bicarb. (4) Acute renal insufficiency Assessment/Plan: With improved BP and iv hydration, her BUN/creat is improving daily. Will slow down then stop iv saline later today, stop the NaCo2 drip. Monitor BMP daily. (5) Multiple myeloma in relapse Assessment/Plan: WBC is usually normal (per [facility] records). Her WBC was reactive therefore to the infection. The WBC is decreasing as of today. Her serum Alb is low, possibly related to malignancy. Will add high-calorie protien supplement to meals bid. Yesterday, the patient met the Palliative Care AUDIO ENGINEER, Kylah Jha, for the first time, to establish. (6) Hypomagnesemia Assessment/Plan: Will start daily po Magnesium. Follow daily serum level. (7) Anemia Qualifiers: Anemia type: other cause Other causes of anemia: antineoplastic chemotherapy Qualified Code(s): D64.81 - Anemia due to antineoplastic chemotherapy; T45.1X5A - Adverse effect of antineoplastic and immunosuppressive drugs, initial encounter Assessment/Plan: Despite adequate B12 and Folate levels, and mildly low iron stores, she has macrocytosis. She likely has marrow suppression due to chemo. Will add daily oral Iron replacement. (8) Chronic pain syndrome Assessment/Plan: Adequate pain control on her present pain meds. (9) Transaminitis Assessment/Plan: Daily improvement in LFTs by labs. (10) Osteoporosis Qualifiers: Osteoporosis type: unspecified Presence of current pathological fracture: without current pathological fracture Qualified Code(s): M81.0 - Age-related osteoporosis without current pathological fracture Assessment/Plan: Continue Ca and vit D replacement (11) Hx of essential hypertension Assessment/Plan: BP still not elevated. Her B-cristobal and CARLEY-I are still on hold. (12) Septic shock Assessment/Plan: Resolved, Levophed weaned to off yesterday. 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 - Current Meds Current Meds: Current Medications Generic Name Dose Route Start Last Admin Trade Name Freq PRN Reason Stop Dose Admin Cholecalciferol 1,000 unit 10/27/18 09:00 10/27/18 09:07 Vitamin D3 PO 1,000 unit DAILY PATRICE Administration Cyanocobalamin 1,000 mcg 10/27/18 09:00 10/27/18 09:07 Vitamin B-12 PO 1,000 mcg DAILY PATRICE Administration Dexamethasone 40 mg 10/26/18 21:00 10/27/18 02:01 Decadron PO Not Given Q7D PATRICE Enoxaparin Sodium 40 mg 10/27/18 09:00 10/27/18 09:14 Lovenox SUBQ Not Given DAILY PATRICE Famotidine 20 mg 10/26/18 21:00 10/27/18 20:53 Pepcid IVP 20 mg BID PATRICE Administration Folic Acid 1 mg 10/27/18 09:00 10/27/18 09:07 PO 1 mg DAILY PATRICE Administration Heparin Sodium (Beef Lung) 30 - 50 unit 10/27/18 04:54 10/27/18 18:33 IVP 40 unit PRN PRN Administration Central Line Protocol (<24 hr) Piperacillin Sod/Tazobactam 100 mls @ 200 mls/hr 10/26/18 22:00 10/28/18 04:25 Sod 4.5 gm/ Sodium Chloride IV Infused Q6H PATRICE Infusion Levofloxacin 250 mg in 50 mls @ 50 mls/hr 10/27/18 21:00 10/27/18 21:55 Levaquin 250 Mg/50 Ml IV Infused Q24H PATRICE Infusion Vancomycin HCl 1 gm/ Sodium 250 mls @ 167 mls/hr 10/27/18 18:00 10/27/18 20:00 Chloride IV Infused Q24H PATRICE Infusion Sodium Chloride 1,000 mls @ 125 mls/hr 10/27/18 13:00 10/28/18 06:17 Normal Saline 0.9% IV 125 mls/hr .Q8H PATRICE Administration Ketorolac Tromethamine 30 mg 10/26/18 21:55 10/28/18 04:02 Toradol Inj (30mg) IVP 10/31/18 21:54 30 mg Q6HR PRN Administration PAIN Morphine Sulfate 30 mg 10/27/18 09:00 10/27/18 09:14 Ms Contin PO 30 mg DAILY PATRICE Administration Prochlorperazine Edisylate 10 mg 10/27/18 12:12 10/28/18 07:43 Compazine Inj IVP 10 mg Q4HR PRN Administration Nausea / Vomiting Sodium Chloride 10 ml 10/27/18 01:00 10/28/18 07:46 Normal Saline Flush 0.9% IVP 20 ml 0100,0900,1700 PATRICE Administration Sodium Chloride 10 ml 10/26/18 20:42 10/28/18 07:45 Normal Saline Flush 0.9% IVP 10 ml PRN PRN Administration NEEDED PER PROVIDER ORDERS Sodium Chloride 20 ml 10/27/18 04:54 10/28/18 05:08 Normal Saline Flush 0.9% IVP 20 ml PRN PRN Administration After Blood Draw Valacyclovir HCl 500 mg 10/26/18 21:00 10/27/18 20:58 Valtrex PO 500 mg BID PATRICE Administration Zinc Sulfate 220 mg 10/27/18 09:00 10/27/18 11:44 PO 220 mg DAILY PATRICE Administration - Lab Result Fish Bone Diagrams: 10/28/18 05:10 10/28/18 05:10 - Additional Planning My Orders: My Active Orders 10/27/18 12:12 Prochlorperazine Inj [Compazine Inj] 10 mg IVP Q4HR PRN 10/27/18 13:00 Sodium Chloride 0.9% [Normal Saline 0.9%] 1,000 ml IV 125 mls/hr 10/28/18 05:10 MAGNESIUM [CHEM] Stat PHOSPHORUS [CHEM] Stat 10/28/18 07:49 RT [Nebulizer/MDI Tx.] [RC] .Q4 PRN 10/29/18 05:00 CBC - COMP BLD CT W/AUTO DIFF [HEME] DAILYLAB Subjective - Subjective Patient Reports: Feeling Better, Resting Comfortably, Other (Feels "bloated with fluids", was up alot overnight to urinate.) Objective Vital Signs: Vital Signs - 24 hr 10/27/18 10/27/18 10/27/18 09:34 09:40 09:45 Temperature Heart Rate Heart Rate [ 51 L 54 L 54 L Monitoring electrodes] Respiratory 18 Rate Blood Pressure 138/74 H 132/77 H 122/74 [Left Brachial artery] O2 Saturation 97 10/27/18 10/27/18 10/27/18 09:55 10:00 10:12 Temperature Heart Rate Heart Rate [ 55 L 62 52 L Monitoring electrodes] Respiratory 18 Rate Blood Pressure 120/78 102/66 84/60 L [Left Brachial artery] O2 Saturation 95 10/27/18 10/27/18 10/27/18 10:16 10:45 12:31 Temperature Heart Rate Heart Rate [ 62 Monitoring electrodes] Respiratory Rate Blood Pressure 124/62 83/54 L 98/62 [Left Brachial artery] O2 Saturation 10/27/18 10/27/18 10/27/18 14:06 16:00 17:00 Temperature Heart Rate Heart Rate [ 65 94 Monitoring electrodes] Respiratory 13 17 20 Rate Blood Pressure 100/63 85/47 L 101/64 [Left Brachial artery] O2 Saturation 99 98 99 10/27/18 10/27/18 10/27/18 18:05 18:21 18:59 Temperature 36.9 C Heart Rate Heart Rate [ 69 62 Monitoring electrodes] Respiratory 16 17 Rate Blood Pressure 94/47 L 96/60 [Left Brachial artery] O2 Saturation 98 99 10/27/18 10/27/18 10/27/18 19:00 20:00 21:00 Temperature 37 C Heart Rate Heart Rate [ 70 67 59 L Monitoring electrodes] Respiratory 15 18 16 Rate Blood Pressure 96/51 L 105/61 120/70 [Left Brachial artery] O2 Saturation 99 97 95 10/27/18 10/27/18 10/28/18 22:00 23:00 00:00 Temperature 36.8 C Heart Rate Heart Rate [ 65 62 70 Monitoring electrodes] Respiratory 18 19 15 Rate Blood Pressure 103/57 L 119/73 127/57 L [Left Brachial artery] O2 Saturation 98 97 98 10/28/18 10/28/18 10/28/18 01:00 02:00 03:00 Temperature Heart Rate Heart Rate [ 59 L 75 52 L Monitoring electrodes] Respiratory 18 18 17 Rate Blood Pressure 119/61 125/76 119/60 [Left Brachial artery] O2 Saturation 95 99 94 10/28/18 10/28/18 10/28/18 04:00 05:00 06:10 Temperature 37 C Heart Rate Heart Rate [ 52 L 53 L 52 L Monitoring electrodes] Respiratory 16 16 16 Rate Blood Pressure 138/82 H 111/56 L 134/63 H [Left Brachial artery] O2 Saturation 97 93 96 10/28/18 10/28/18 10/28/18 07:03 07:42 08:00 Temperature Heart Rate 56 L Heart Rate [ 51 L 52 L Monitoring electrodes] Respiratory 14 15 16 Rate Blood Pressure 136/84 H 144/97 H [Left Brachial artery] O2 Saturation 94 100 Oxygen O2 Source Room air I&O (Last 24 Hrs): Intake and Output Totals x24h 10/26/18 10/27/18 10/28/18 23:59 23:59 23:59 Intake Total 2380 6439.249 2230 Output Total 2750 1200 Balance 2380 3689.249 1030 General: Alert, Oriented x3 HEENT: Mucous membr. moist/pink Neck: Supple, No JVD Neuro: Alert, Non Focal Cardiovascular: Regular rate, No murmurs Respiratory: Other (L sided rales and rhonchi) Abdomen: Soft Extremities: No edema - Results Results: Laboratory Results WBC 11.8 x10^3/uL (4.8-10.8) H 10/28/18 05:10 RBC 2.80 10^6/uL (4.20-5.40) L 10/28/18 05:10 Hgb 9.3 g/dL (12.0-16.0) L 10/28/18 05:10 Hct 28.3 % (37.0-47.0) L 10/28/18 05:10 MCV 101.1 fL (81.0-99.0) H 10/28/18 05:10 MCH 33.4 pg (27.0-31.0) H 10/28/18 05:10 MCHC 33.0 g/dL (32.0-36.0) 10/28/18 05:10 RDW 16.0 % (12.0-15.0) H 10/28/18 05:10 Plt Count 188 10^3/uL (130-450) 10/28/18 05:10 MPV 7.9 fL (7.9-10.8) 10/28/18 05:10 Neut # (Auto) 6.7 10^3/uL (1.5-6.6) H 10/28/18 05:10 Lymph # (Auto) 1.9 10^3/uL (1.5-3.5) 10/28/18 05:10 [place] # (Auto) 2.5 10^3/uL (0.0-1.0) H 10/28/18 05:10 Eos # (Auto) 0.6 10^3/uL (0.0-0.7) 10/28/18 05:10 Baso # (Auto) 0.1 10^3/uL (0.0-0.1) 10/28/18 05:10 Absolute Nucleated RBC 0.00 x10^3/uL 10/28/18 05:10 Total Counted 100 10/26/18 19:30 Band Neuts % (Manual) 0 % (0-10) 10/26/18 19:30 Abnorm Lymph % (Manual) 0 % 10/26/18 19:30 Nucleated RBC % 0.0 /100WBC 10/28/18 05:10 Neutrophils # (Manual) 26.2 10^3/uL (1.5-6.6) H 10/26/18 19:30 Lymphocytes # (Manual) 0.6 10^3/uL (1.5-3.5) L 10/26/18 19:30 Monocytes # (Manual) 2.0 10^3/uL (0.0-1.0) H 10/26/18 19:30 Eosinophils # (Manual) 0.0 10^3/uL (0-0.7) 10/26/18 19:30 Basophils # (Manual) 0.3 10^3/uL (0-0.1) H 10/26/18 19:30 Differential Comment MANUAL DIFFERENTIAL 10/26/18 19:30 Manual Slide Review Indicated 10/27/18 07:14 WBC Morphology NORMAL APPEARANCE (NORMAL) 10/26/18 19:30 Platelet Estimate NORMAL (130-450,000) (NORMAL) 10/26/18 19:30 Platelet Morphology NORMAL APPEARANCE (NORMAL) 10/26/18 19:30 RBC Morph Micro Appear 1+ ANISOCYTOSIS (NORMAL) 1+ MACROCYTOSIS (NORMAL) 10/26/18 19:30 RBC Morph Micro Appear 2+ ANISOCYTOSIS (NORMAL) 10/27/18 07:14 PT 13.7 secs (9.9-12.6) H 10/27/18 04:55 INR 1.2 (0.8-1.2) 10/27/18 04:55 D-Dimer 913.0 ng/mL (200.0-255.0) H 10/27/18 04:55 VBG pH 7.340 (7.31-7.41) 10/27/18 11:25 VBG pCO2 33.3 mmHg (41-51) L 10/27/18 11:25 VBG pO2 53.5 mmHg (25-47) H 10/27/18 11:25 VBG HCO3 17.6 mmol/L (23-28) L 10/27/18 11:25 VBG Total CO2 18.6 mmol/L (24-29) L 10/27/18 11:25 VBG O2 Saturation 88.2 % (60-80) H 10/27/18 11:25 VBG Base Excess -7.4 mmol/L (-2 - +2) L 10/27/18 11:25 Sodium 140 mmol/L (135-145) 10/28/18 05:10 Potassium 3.6 mmol/L (3.5-5.0) 10/28/18 05:10 Chloride 111 mmol/L (101-111) 10/28/18 05:10 Carbon Dioxide 19 mmol/L (21-32) L 10/28/18 05:10 Anion Gap 10.0 (6-13) 10/28/18 05:10 BUN 23 mg/dL (6-20) H 10/28/18 05:10 Creatinine 1.6 mg/dL (0.4-1.0) H 10/28/18 05:10 Estimated GFR (MDRD) 33 (>89) L 10/28/18 05:10 Glucose 100 mg/dL (70-100) 10/28/18 05:10 Lactic Acid 1.7 mmol/L (0.5-2.2) 10/26/18 23:15 Calcium 7.2 mg/dL (8.5-10.3) L 10/28/18 05:10 Phosphorus 3.7 mg/dL (2.5-4.6) 10/27/18 11:28 Magnesium 1.8 mg/dL (1.7-2.8) 10/27/18 11:28 Iron 68 ug/dL (28-170) 10/28/18 05:10 TIBC 182 ug/dL (250-450) L 10/28/18 05:10 % Saturation 37 % (20-50) 10/28/18 05:10 Transferrin 130 mg/dL (192-382) L 10/28/18 05:10 Total Bilirubin 0.8 mg/dL (0.2-1.0) 10/28/18 05:10 AST 35 IU/L (10-42) 10/28/18 05:10 ALT 61 IU/L (10-60) H 10/28/18 05:10 Alkaline Phosphatase 127 IU/L (42-121) H 10/28/18 05:10 Lactate Dehydrogenase 170 IU/L (91-225) 10/27/18 04:55 Total Creatine Kinase 71 IU/L (22-269) 10/26/18 19:30 Total Protein 4.9 g/dL (6.7-8.2) L 10/28/18 05:10 Albumin 2.0 g/dL (3.2-5.5) L 10/28/18 05:10 Globulin 2.9 g/dL (2.1-4.2) 10/28/18 05:10 Albumin/Globulin Ratio 0.7 (1.0-2.2) L 10/28/18 05:10 Lipase 26 U/L (22-51) 10/26/18 19:30 Vitamin B12 655 pg/mL (180-914) 10/28/18 05:10 Folate 17.60 ng/mL (5.90 - >24.8) 10/28/18 05:10 Urine Color LT. YELLOW 10/26/18 19:59 Urine Clarity HAZY (CLEAR) 10/26/18 19:59 Urine pH 5.0 PH (5.0-7.5) 10/26/18 19:59 Ur Specific [place] 1.025 (1.002-1.030) 10/26/18 19:59 Urine Protein 30 mg/dL (NEGATIVE) H 10/26/18 19:59 Urine Glucose (UA) NEGATIVE mg/dL (NEGATIVE) 10/26/18 19:59 Urine Ketones NEGATIVE mg/dL (NEGATIVE) 10/26/18 19:59 Urine Occult Blood NEGATIVE (NEGATIVE) 10/26/18 19:59 Urine Nitrite POSITIVE (NEGATIVE) H 10/26/18 19:59 Urine Bilirubin NEGATIVE (NEGATIVE) 10/26/18 19:59 Urine Urobilinogen 0.2 (NORMAL) E.U./dL (NORMAL) 10/26/18 19:59 Ur Leukocyte Esterase SMALL (NEGATIVE) H 10/26/18 19:59 Urine RBC None Seen /HPF (0-5) 10/26/18 19:59 Urine WBC >25 /HPF (0-5) H 10/26/18 19:59 Urine WBC Clumps PRESENT 10/26/18 19:59 Ur Squamous Epith Cells NONE SEEN (<= Few) 10/26/18 19:59 Urine Bacteria Moderate /HPF (None Seen) H 10/26/18 19:59 Ur Microscopic Review INDICATED 10/26/18 19:59 Urine Culture Comments INDICATED 10/26/18 19:59 Nasal Screen MRSA (PCR) NEGATIVE (NEGATIVE) 10/26/18 00:11 Influenza A (Rapid) Negative (Negative) 10/26/18 19:39 Influenza B (Rapid) Negative (Negative) 10/26/18 19:39 - Procedures Procedures: Procedures INCIS W REM OF FORIEGN BODY OR DEV FROM SKIN & SUBCUT TISSUE (03/24/13) PACKED CELL TRANSFUSION (05/08/14) VENOUS CATHETERIZATION NEC (03/24/13) Sepsis Event Note (H) - Evaluation Current Stage of Sepsis: Sepsis Possible source of Sepsis: positive: Pulmonary, Genitourinary
[2018-10-28 08:27] LABS: MAGNESIUM 1.5 mg/dL (1.7-2.8); PHOSPHORUS 2.7 mg/dL (2.5-4.6)
[2018-10-28] MEDS: valACYclovir 500 MG TABLET PO SCH ×2 (08:40→20:25)
[2018-10-28] MEDS: FOLIC ACID 1 MG TABLET PO SCH (08:41)
[2018-10-28] MEDS: MORPHINE SULFATE ER 30 MG TABLET PO SCH (08:41)
[2018-10-28] MEDS: CHOLECALCIFEROL 1,000 UNIT TABLET PO SCH (08:42)
[2018-10-28] MEDS: ZINC SULFATE 220 MG CAPSULE PO SCH (08:42)
[2018-10-28] MEDS: CYANOCOBALAMIN 500 MCG TABLET PO SCH (08:42)
[2018-10-28] MEDS: FAMOTIDINE 20 MG/2 ML VIAL IVP SCH (08:43)
[2018-10-28] MEDS ORDERED: SODIUM CHLORIDE 0.9% 1,000 ML IV SCH (08:44)
[2018-10-28] MEDS: MAGNESIUM OXIDE 400 MG TABLET PO SCH (08:59)
[2018-10-28] MEDS: ENOXAPARIN 40 MG/0.4 ML SYRINGE SUBQ SCH (09:04)
[2018-10-28] MEDS: FAMOTIDINE 20 MG TABLET PO SCH ×2 (09:05→20:29)
--- NOTE | 2018-10-28 10:30 | XRAY Report ---
Reason: SOB, F/U LLL infiltrate and eval for CHF Procedure Date: 10/28/2018 Accession Number: [id number] / [id number] Procedure: XR - Chest 1 View X-Ray CPT Code: 43773 FULL RESULT: EXAM: CHEST RADIOGRAPHY EXAM DATE: 10/28/2018 09:15 AM. CLINICAL HISTORY: Shortness of breath, follow up left lower lobe infiltrate and evaluate for CHF. COMPARISON: CHEST 2 VIEW 10/26/2018 7:47 PM. TECHNIQUE: 1 view. FINDINGS: Lungs/Pleura: There is progression of left lower lung airspace disease, increased opacification with increased and a small associated pleural effusion. There is now new medial right lower lung airspace disease. No pneumothorax. Mediastinum: Within exam limitations, the cardiomediastinal contour is stable including calcification of the aortic arch. Other: None. IMPRESSION: Progression of airspace disease, now bibasilar with development of a small left pleural effusion. RADIA
[2018-10-28] MEDS ORDERED: A & D OINTMENT 5 GM PACKET TOP PRN (11:05)
[2018-10-28 13:11] LABS: HEPATITIS A IGM NON-REACTIVE (NON-REACTIVE); HEPATITIS B CORE ANTIBODY IGM NON-REACTIVE (NON-REACTIVE); HEPATITIS B SURFACE ANTIGEN NON-REACTIVE (NON-REACTIVE); HEPATITIS C ANTIBODY NON-REACTIVE (NON-REACTIVE)
[2018-10-28] MEDS ORDERED: amLODIPine 5 MG TABLET PO ONE (15:51)
[2018-10-28] MEDS: SACCHAROMYCES BOULARDII 250 MG CAPSULE PO SCH (16:55)
[2018-10-28] MEDS: VANCOMYCIN INJ 1 GM in SODIUM CHLORIDE 0.9% 250 ML IV SCH (17:57)
[2018-10-28] MEDS: ATORVASTATIN 10 MG TABLET PO SCH (20:25)
[2018-10-28] MEDS: METOPROLOL SUCCINATE 25 MG TABLET PO SCH (20:25)
[2018-10-28] MEDS: LISINOPRIL 5 MG TABLET PO SCH (20:26)
[2018-10-28] MEDS: LORazepam 0.5 MG TABLET PO PRN (21:51)
[2018-10-29] MEDS: KETOROLAC 30 MG/ML VIAL IVP PRN ×3 (02:06→20:50)
[2018-10-29] MEDS: SODIUM CHLORIDE FLUSH 0.9% 10 ML SYRINGE IVP SCH ×4 (02:07→17:00)
[2018-10-29] MEDS: LORazepam 0.5 MG TABLET PO PRN (03:12)
[2018-10-29] MEDS: PIPERACILLIN/TAZOBACTAM 4.5 GM in SODIUM CHLORIDE 0.9% MINIBAG 100 ML IV SCH ×2 (03:14→09:32)
[2018-10-29 05:40] LABS: BASOPHILS # (AUTO) 0.1 10^3/uL (0.0-0.1); EOSINOPHILS # (AUTO) 0.4 10^3/uL (0.0-0.7); HGB - HEMOGLOBIN 9.7 g/dL (12.0-16.0); LYMPHOCYTES # (AUTO) 1.8 10^3/uL (1.5-3.5); NEUTROPHILS # (AUTO) 3.4 10^3/uL (1.5-6.6); WHITE BLOOD COUNT 7.8 x10^3/uL (4.8-10.8)
[2018-10-29 05:46] LABS: EOSINOPHILS % (AUTO) 4.7 %; LYMPHOCYTES % (AUTO) 22.5 %; MEAN CORPUSCULAR HGB CONC 33.7 g/dL (32.0-36.0); MEAN PLATELET VOLUME 8.2 fL (7.9-10.8); MONOCYTES # (AUTO) 2.2 10^3/uL (0.0-1.0); NEUTROPHILS % (AUTO) 43.8 %; PLT - PLATELET COUNT 134 10^3/uL (130-450); RED BLOOD COUNT 2.84 10^6/uL (4.20-5.40); RED CELL DISTRIBUTION WIDTH 16.1 % (12.0-15.0)
[2018-10-29 05:55] LABS: ALBUMIN 2.3 g/dL (3.2-5.5); ALBUMIN/GLOBULIN RATIO 0.7 (1.0-2.2); BILIRUBIN,TOTAL 0.6 mg/dL (0.2-1.0); CREATININE 1.2 mg/dL (0.4-1.0); MAGNESIUM 1.6 mg/dL (1.7-2.8); TOTAL PROTEIN 5.6 g/dL (6.7-8.2)
[2018-10-29 06:14] LABS: DIFFERENTIAL COMMENT MANUAL=AUTO DIFF; PLATELET ESTIMATE, MANUAL NORMAL (130-450,000) (NORMAL); RBC MORPHOLOGY (MULTIPLE) NORMAL APPEARANCE (NORMAL)
[2018-10-29] MEDS ORDERED: SODIUM CHLORIDE 0.9% 50 ML IV ONE (08:23)
[2018-10-29] MEDS: valACYclovir 500 MG TABLET PO SCH ×2 (08:27→20:57)
[2018-10-29] MEDS: CHOLECALCIFEROL 1,000 UNIT TABLET PO SCH (08:28)
[2018-10-29] MEDS: FOLIC ACID 1 MG TABLET PO SCH (08:28)
[2018-10-29] MEDS: guaiFENesin 600 MG TABLET PO SCH ×2 (08:28→20:58)
[2018-10-29] MEDS: MORPHINE SULFATE ER 30 MG TABLET PO SCH (08:29)
[2018-10-29] MEDS: MULTIVITAMIN TABLET PO SCH (08:29)
[2018-10-29] MEDS ORDERED: MAGNESIUM SULFATE 1 GM in SODIUM CHLORIDE 0.9% 50 ML IV ONE (08:30)
[2018-10-29] MEDS: MAGNESIUM OXIDE 400 MG TABLET PO SCH (08:30)
[2018-10-29] MEDS: FAMOTIDINE 20 MG TABLET PO SCH ×2 (08:30→21:01)
[2018-10-29] MEDS: CYANOCOBALAMIN 500 MCG TABLET PO SCH (08:31)
[2018-10-29] MEDS: ASCORBIC ACID CHEW 500 MG TABLET PO SCH (08:32)
[2018-10-29] MEDS: SACCHAROMYCES BOULARDII 250 MG CAPSULE PO SCH ×2 (08:32→17:38)
[2018-10-29] MEDS: ENOXAPARIN 40 MG/0.4 ML SYRINGE SUBQ SCH (08:40)
[2018-10-29] MEDS: ZINC SULFATE 220 MG CAPSULE PO SCH (08:40)
--- NOTE | 2018-10-29 08:46 | PROVIDER PROGRESS NOTE ---
Assessment/Plan - Problem List (1) UTI due to extended-spectrum beta lactamase (ESBL) producing Escherichia coli Assessment/Plan: The identification just came out along with sensitivities: ESBL-producing E. coli in urine culture. She has been on iv Levofloxacin for 2 days, and has had improvement in WBC and septic shock resolved. Will transition to oral Levaquin after today's 3rd iv dose and plan a 7 day total course of antibiotics (4 more days of po). Expect Dch tomorrow to home. Will stop Pip/Tazo now. (2) Pneumonia Qualifiers: Pneumonia type: due to unspecified organism Laterality: left Lung location: lower lobe of lung Qualified Code(s): J18.1 - Lobar pneumonia, unspecified organism Assessment/Plan: Blood cx are neg to date and she never had sputum to send for culture. She has been on iv antibiotics for 2 days. Will transition to po Levaquin tomorrow, and expect Dch tomorrow. Will add Mucinex for pulmonary toilet. (3) Metabolic acidosis Assessment/Plan: She has constant serum bicarb levels that low at 16-19, even on iv bicarb drip, suggesting RTA. The VBG showed compensated status with pH 7.34. Will start po sodium bicarb treatment. Monitor BMP daily. (4) Acute renal insufficiency Assessment/Plan: The likely had ATN from shock. The creat is improving daily, even with iv fluids stopped yesterday. Monitor BMP daily. (5) Multiple myeloma in relapse Assessment/Plan: WBC is usually normal (per [facility] records). Her WBC was reactive therefore to the infection. The WBC is decreasing daily. Her serum Alb is low, possibly related to malignancy, a high protein drink was advised. The patient met the Palliative Care PIG FURNACE OPERATOR, Kylah Jha to establish. (6) Hypomagnesemia Assessment/Plan: Despite renal insufficiency, she weiner needed Mag supplements for days. Will give iv Mag x1 and continue the daily Mag po replacement for several weeks. (7) Anemia Qualifiers: Anemia type: other cause Other causes of anemia: antineoplastic chemotherapy Qualified Code(s): D64.81 - Anemia due to antineoplastic chemotherapy; T45.1X5A - Adverse effect of antineoplastic and immunosuppressive drugs, initial encounter Assessment/Plan: Despite adequate B12 and Folate levels, and mildly low iron stores, she has macrocytosis. She likely has marrow suppression due to chemo. She is now on daily oral Iron replacement. (8) Chronic pain syndrome Assessment/Plan: Adrquate pain control on current meds. (9) Osteoporosis Qualifiers: Osteoporosis type: unspecified Presence of current pathological fracture: without current pathological fracture Qualified Code(s): M81.0 - Age-related osteoporosis without current pathological fracture Assessment/Plan: Continue Calcium and vit D supplements. (10) Hx of essential hypertension Assessment/Plan: Yesterday afternoon, she did have BPs in the hypertensive range. Her Lisinopril evening dose and half her metoprolol dose were restarted yesterday afternoon (11) Septic shock Assessment/Plan: Resolved. Her R IJ CVP line was ordered to be removed last night. (12) Transaminitis Assessment/Plan: Resolved; was felt to be from recent chemo. - Current Meds Current Meds: Current Medications Generic Name Dose Route Start Last Admin Trade Name Freq PRN Reason Stop Dose Admin Acetaminophen 650 mg 10/27/18 07:04 10/28/18 08:39 Tylenol PO 650 mg Q4HR PRN Administration Pain or Fever > 38C (100.4F) Ascorbic Acid 500 mg 10/29/18 09:00 10/29/18 08:32 Vitamin C PO 500 mg DAILY PATRICE Administration Atorvastatin Calcium 20 mg 10/28/18 21:00 10/28/18 20:25 Lipitor PO 20 mg QPM PATRICE Administration Cholecalciferol 1,000 unit 10/27/18 09:00 10/29/18 08:28 Vitamin D3 PO 1,000 unit DAILY PATRICE Administration Cyanocobalamin 1,000 mcg 10/27/18 09:00 10/29/18 08:31 Vitamin B-12 PO 1,000 mcg DAILY PATRICE Administration Dexamethasone 40 mg 10/26/18 21:00 10/27/18 02:01 Decadron PO Not Given Q7D PATRICE Enoxaparin Sodium 40 mg 10/27/18 09:00 10/28/18 09:04 Lovenox SUBQ Not Given DAILY PATRICE Famotidine 10 mg 10/28/18 09:00 10/29/18 08:30 Pepcid PO 10 mg BID PATRICE Administration Folic Acid 1 mg 10/27/18 09:00 10/29/18 08:28 PO 1 mg DAILY PATRICE Administration Guaifenesin 600 mg 10/29/18 09:00 10/29/18 08:28 Mucinex PO 600 mg BID PATRICE Administration Heparin Sodium (Beef Lung) 30 - 50 unit 10/27/18 04:54 10/27/18 18:33 IVP 40 unit PRN PRN Administration Central Line Protocol (<24 hr) Piperacillin Sod/Tazobactam 100 mls @ 200 mls/hr 10/26/18 22:00 10/29/18 03:50 Sod 4.5 gm/ Sodium Chloride IV Infused Q6H PATRICE Infusion Levofloxacin 250 mg in 50 mls @ 50 mls/hr 10/27/18 21:00 10/28/18 21:30 Levaquin 250 Mg/50 Ml IV Infused Q24H PATRICE Infusion Vancomycin HCl 1 gm/ Sodium 250 mls @ 167 mls/hr 10/27/18 18:00 10/28/18 20:20 Chloride IV Infused Q24H PATRICE Infusion Ketorolac Tromethamine 30 mg 10/26/18 21:55 10/29/18 02:06 Toradol Inj (30mg) IVP 10/31/18 21:54 30 mg Q6HR PRN Administration PAIN Lisinopril 10 mg 10/28/18 21:00 10/28/18 20:26 Zestril PO 10 mg QPM PATRICE Administration Lorazepam 1 mg 10/26/18 20:47 10/29/18 03:12 Ativan PO 1 mg Q6HR PRN Administration Nausea / Vomiting Magnesium Oxide 400 mg 10/28/18 09:00 10/29/18 08:30 Mag Ox PO 400 mg DAILYWM PATRICE Administration Metoprolol Succinate 25 mg 10/28/18 21:00 10/28/18 20:25 Toprol Xl PO 25 mg QPM PATRICE Administration Morphine Sulfate 30 mg 10/27/18 09:00 10/29/18 08:29 Ms Contin PO 30 mg DAILY PATRICE Administration Multivitamins 1 tab 10/29/18 09:00 10/29/18 08:29 Theragran PO 1 tab DAILY PATRICE Administration Prochlorperazine Edisylate 10 mg 10/27/18 12:12 10/28/18 07:43 Compazine Inj IVP 10 mg Q4HR PRN Administration Nausea / Vomiting Saccharomyces Boulardii 250 mg 10/28/18 17:00 10/29/18 08:32 Florastor PO 250 mg BIDWM PATRICE Administration Sodium Chloride 10 ml 10/27/18 01:00 10/29/18 03:14 Normal Saline Flush 0.9% IVP 10 ml 0100,0900,1700 PATRICE Administration Sodium Chloride 10 ml 10/26/18 20:42 10/28/18 16:55 Normal Saline Flush 0.9% IVP 10 ml PRN PRN Administration NEEDED PER PROVIDER ORDERS Sodium Chloride 20 ml 10/27/18 04:54 10/28/18 05:08 Normal Saline Flush 0.9% IVP 20 ml PRN PRN Administration After Blood Draw Valacyclovir HCl 500 mg 10/26/18 21:00 10/29/18 08:27 Valtrex PO 500 mg BID PATRICE Administration Vitamin A/Vitamin D 1 applic 10/28/18 11:05 10/28/18 14:25 Vitamin A & D Ointment TOP 1 applic PRN PRN Administration central line discontinuation Zinc Sulfate 220 mg 10/27/18 09:00 10/28/18 08:42 PO 220 mg DAILY PATRICE Administration - Lab Result Fish Bone Diagrams: 10/29/18 05:30 10/29/18 05:30 - Additional Planning My Orders: My Active Orders 10/28/18 07:49 RT [Nebulizer/MDI Tx.] [RC] .Q4 PRN 10/28/18 09:00 Famotidine [Pepcid] 10 mg PO BID Magnesium Oxide [Mag Ox] 400 mg PO DAILYWM 10/28/18 11:05 A & D Ointment [Vitamin A & D Ointment] 1 applic TOP PRN PRN 10/28/18 17:00 Saccharomyces Boulardii [Florastor] 250 mg PO BIDWM 10/28/18 21:00 Central Line Discontinuation [RC] .ONCE Atorvastatin [Lipitor] 20 mg PO QPM Lisinopril [Zestril] 10 mg PO QPM Metoprolol Succinate [Toprol Xl] 25 mg PO QPM 10/29/18 08:30 Magnesium Sulfate 1 gm Sodium Chloride 0.9% [Normal Saline 0.9%] 50 ml IV ONCE 10/29/18 09:00 Ascorbic Acid Chew [Vitamin C] 500 mg PO DAILY Multivitamin [Theragran] 1 tab PO DAILY guaiFENesin [Mucinex] 600 mg PO BID 10/30/18 05:00 MAGNESIUM [CHEM] DAILYLAB 10/31/18 05:00 MAGNESIUM [CHEM] DAILYLAB Subjective - Subjective Patient Reports: No Complaints Nursing Reports: Other (The patient is tearful today, [place] Objective Vital Signs: Vital Signs - 24 hr 10/28/18 10/28/18 10/28/18 09:00 14:02 14:05 Temperature 36.7 C Heart Rate [ Brachial] Heart Rate [ 62 59 L Monitoring electrodes] Respiratory 16 20 Rate Blood Pressure 146/92 H [Left Brachial artery] Blood Pressure 173/91 H 167/107 H [Right Brachial artery] O2 Saturation 99 94 10/28/18 10/28/18 10/29/18 16:24 20:50 01:00 Temperature 36.8 C 37 C Heart Rate [ Brachial] Heart Rate [ 62 64 84 Monitoring electrodes] Respiratory 17 16 18 Rate Blood Pressure [Left Brachial artery] Blood Pressure 145/94 H 152/75 H 129/78 [Right Brachial artery] O2 Saturation 93 98 94 10/29/18 05:45 Temperature 36.6 C Heart Rate [ 67 Brachial] Heart Rate [ Monitoring electrodes] Respiratory 18 Rate Blood Pressure [Left Brachial artery] Blood Pressure 142/85 H [Right Brachial artery] O2 Saturation 97 Oxygen O2 Source Room air I&O (Last 24 Hrs): Intake and Output Totals x24h 10/27/18 10/28/18 10/29/18 23:59 23:59 23:59 Intake Total 6439.249 5077 100 Output Total 2750 2900 550 Balance 3689.249 2177 -450 General: Alert, Oriented x3 HEENT: Mucous membr. moist/pink Neck: Supple, Other (R IJ cath is out) Neuro: Alert Cardiovascular: Regular rate Respiratory: No respiratory distress Abdomen: Soft Extremities: No edema - Results Results: Laboratory Results WBC 7.8 x10^3/uL (4.8-10.8) 10/29/18 05:30 RBC 2.84 10^6/uL (4.20-5.40) L 10/29/18 05:30 Hgb 9.7 g/dL (12.0-16.0) L 10/29/18 05:30 Hct 28.7 % (37.0-47.0) L 10/29/18 05:30 MCV 101.0 fL (81.0-99.0) H 10/29/18 05:30 MCH 34.0 pg (27.0-31.0) H 10/29/18 05:30 MCHC 33.7 g/dL (32.0-36.0) 10/29/18 05:30 RDW 16.1 % (12.0-15.0) H 10/29/18 05:30 Plt Count 134 10^3/uL (130-450) 10/29/18 05:30 MPV 8.2 fL (7.9-10.8) 10/29/18 05:30 Neut # (Auto) 3.4 10^3/uL (1.5-6.6) 10/29/18 05:30 Lymph # (Auto) 1.8 10^3/uL (1.5-3.5) 10/29/18 05:30 [place] # (Auto) 2.2 10^3/uL (0.0-1.0) H 10/29/18 05:30 Eos # (Auto) 0.4 10^3/uL (0.0-0.7) 10/29/18 05:30 Baso # (Auto) 0.1 10^3/uL (0.0-0.1) 10/29/18 05:30 Absolute Nucleated RBC 0.01 x10^3/uL 10/29/18 05:30 Total Counted 100 10/26/18 19:30 Band Neuts % (Manual) Not Reportable 10/29/18 05:30 Abnorm Lymph % (Manual) Not Reportable 10/29/18 05:30 Nucleated RBC % 0.2 /100WBC 10/29/18 05:30 Neutrophils # (Manual) Not Reportable 10/29/18 05:30 Lymphocytes # (Manual) Not Reportable 10/29/18 05:30 Monocytes # (Manual) Not Reportable 10/29/18 05:30 Eosinophils # (Manual) Not Reportable 10/29/18 05:30 Basophils # (Manual) Not Reportable 10/29/18 05:30 Differential Comment MANUAL=AUTO DIFF 10/29/18 05:30 Manual Slide Review Indicated 10/27/18 07:14 WBC Morphology NORMAL APPEARANCE (NORMAL) 10/26/18 19:30 Platelet Estimate NORMAL (130-450,000) (NORMAL) 10/29/18 05:30 Platelet Morphology NORMAL APPEARANCE (NORMAL) 10/26/18 19:30 RBC Morph Micro Appear 2+ ANISOCYTOSIS (NORMAL) 10/27/18 07:14 RBC Morph Micro Appear NORMAL APPEARANCE (NORMAL) 10/29/18 05:30 PT 13.7 secs (9.9-12.6) H 10/27/18 04:55 INR 1.2 (0.8-1.2) 10/27/18 04:55 D-Dimer 913.0 ng/mL (200.0-255.0) H 10/27/18 04:55 VBG pH 7.340 (7.31-7.41) 10/27/18 11:25 VBG pCO2 33.3 mmHg (41-51) L 10/27/18 11:25 VBG pO2 53.5 mmHg (25-47) H 10/27/18 11:25 VBG HCO3 17.6 mmol/L (23-28) L 10/27/18 11:25 VBG Total CO2 18.6 mmol/L (24-29) L 10/27/18 11:25 VBG O2 Saturation 88.2 % (60-80) H 10/27/18 11:25 VBG Base Excess -7.4 mmol/L (-2 - +2) L 10/27/18 11:25 Sodium 141 mmol/L (135-145) 10/29/18 05:30 Potassium 3.9 mmol/L (3.5-5.0) 10/29/18 05:30 Chloride 113 mmol/L (101-111) H 10/29/18 05:30 Carbon Dioxide 19 mmol/L (21-32) L 10/29/18 05:30 Anion Gap 9.0 (6-13) 10/29/18 05:30 BUN 17 mg/dL (6-20) 10/29/18 05:30 Creatinine 1.2 mg/dL (0.4-1.0) H 10/29/18 05:30 Estimated GFR (MDRD) 46 (>89) L 10/29/18 05:30 Glucose 84 mg/dL (70-100) 10/29/18 05:30 Lactic Acid 1.7 mmol/L (0.5-2.2) 10/26/18 23:15 Calcium 8.0 mg/dL (8.5-10.3) L 10/29/18 05:30 Phosphorus 2.7 mg/dL (2.5-4.6) 10/28/18 05:10 Magnesium 1.6 mg/dL (1.7-2.8) L 10/29/18 05:30 Iron 68 ug/dL (28-170) 10/28/18 05:10 TIBC 182 ug/dL (250-450) L 10/28/18 05:10 % Saturation 37 % (20-50) 10/28/18 05:10 Transferrin 130 mg/dL (192-382) L 10/28/18 05:10 Total Bilirubin 0.6 mg/dL (0.2-1.0) 10/29/18 05:30 AST 34 IU/L (10-42) 10/29/18 05:30 ALT 58 IU/L (10-60) 10/29/18 05:30 Alkaline Phosphatase 125 IU/L (42-121) H 10/29/18 05:30 Lactate Dehydrogenase 170 IU/L (91-225) 10/27/18 04:55 Total Creatine Kinase 71 IU/L (22-269) 10/26/18 19:30 Total Protein 5.6 g/dL (6.7-8.2) L 10/29/18 05:30 Albumin 2.3 g/dL (3.2-5.5) L 10/29/18 05:30 Globulin 3.3 g/dL (2.1-4.2) 10/29/18 05:30 Albumin/Globulin Ratio 0.7 (1.0-2.2) L 10/29/18 05:30 Lipase 26 U/L (22-51) 10/26/18 19:30 Vitamin B12 655 pg/mL (180-914) 10/28/18 05:10 Folate 17.60 ng/mL (5.90 - >24.8) 10/28/18 05:10 Urine Color LT. YELLOW 10/26/18 19:59 Urine Clarity HAZY (CLEAR) 10/26/18 19:59 Urine pH 5.0 PH (5.0-7.5) 10/26/18 19:59 Ur Specific [place] 1.025 (1.002-1.030) 10/26/18 19:59 Urine Protein 30 mg/dL (NEGATIVE) H 10/26/18 19:59 Urine Glucose (UA) NEGATIVE mg/dL (NEGATIVE) 10/26/18 19:59 Urine Ketones NEGATIVE mg/dL (NEGATIVE) 10/26/18 19:59 Urine Occult Blood NEGATIVE (NEGATIVE) 10/26/18 19:59 Urine Nitrite POSITIVE (NEGATIVE) H 10/26/18 19:59 Urine Bilirubin NEGATIVE (NEGATIVE) 10/26/18 19:59 Urine Urobilinogen 0.2 (NORMAL) E.U./dL (NORMAL) 10/26/18 19:59 Ur Leukocyte Esterase SMALL (NEGATIVE) H 10/26/18 19:59 Urine RBC None Seen /HPF (0-5) 10/26/18 19:59 Urine WBC >25 /HPF (0-5) H 10/26/18 19:59 Urine WBC Clumps PRESENT 10/26/18 19:59 Ur Squamous Epith Cells NONE SEEN (<= Few) 10/26/18 19:59 Urine Bacteria Moderate /HPF (None Seen) H 10/26/18 19:59 Ur Microscopic Review INDICATED 10/26/18 19:59 Urine Culture Comments INDICATED 10/26/18 19:59 Nasal Screen MRSA (PCR) NEGATIVE (NEGATIVE) 10/26/18 00:11 Hepatitis A IgM Ab NON-REACTIVE (NON-REACTIVE) 10/26/18 19:30 Hep Bs Antigen NON-REACTIVE (NON-REACTIVE) 10/26/18 19:30 Hep B Core IgM Ab NON-REACTIVE (NON-REACTIVE) 10/26/18 19:30 Hepatitis C Antibody NON-REACTIVE (NON-REACTIVE) 10/26/18 19:30 Hep C Ab Signal/Cutoff 0.00 (<1.00) 10/26/18 19:30 Influenza A (Rapid) Negative (Negative) 10/26/18 19:39 Influenza B (Rapid) Negative (Negative) 10/26/18 19:39 - Procedures Procedures: Procedures INCIS W REM OF FORIEGN BODY OR DEV FROM SKIN & SUBCUT TISSUE (03/24/13) PACKED CELL TRANSFUSION (05/08/14) VENOUS CATHETERIZATION NEC (03/24/13) Sepsis Event Note (H) - Evaluation Current Stage of Sepsis: Sepsis Possible source of Sepsis: positive: Pulmonary, Genitourinary
[2018-10-29] MEDS ORDERED: MORPHINE SULFATE ER 30 MG TABLET PO SCH (09:00)
[2018-10-29] MEDS: SODIUM BICARBONATE 650 MG TABLET PO SCH (14:00)
[2018-10-29] MEDS: SODIUM CHLORIDE FLUSH 0.9% 10 ML SYRINGE IVP PRN (20:50)
[2018-10-29] MEDS: LISINOPRIL 5 MG TABLET PO SCH (20:57)
[2018-10-29] MEDS: METOPROLOL SUCCINATE 25 MG TABLET PO SCH (20:58)
[2018-10-29] MEDS: ATORVASTATIN 10 MG TABLET PO SCH (20:58)
[2018-10-29] MEDS ORDERED: MORPHINE IR 15 MG TABLET PO PRN (22:41)
[2018-10-29] MEDS: MORPHINE 2 MG/ML SYRINGE IVP PRN (22:59)
[2018-10-29] MEDS ORDERED: MORPHINE 2 MG/ML CARPUJECT ONE (23:01)
[2018-10-30] MEDS: MORPHINE 2 MG/ML SYRINGE IVP PRN (00:36)
[2018-10-30] MEDS: SODIUM CHLORIDE FLUSH 0.9% 10 ML SYRINGE IVP SCH (00:36)
[2018-10-30] MEDS: LORazepam 0.5 MG TABLET PO PRN (01:46)
--- NOTE | 2018-10-30 08:01 | Discharge Plan ---
Discharge Plan Disposition: Home, Self Care Condition: Stable Prescriptions: guaiFENesin [Mucinex] 600 mg PO BID #8 tablet levoFLOXacin [Levaquin] 750 mg PO DAILY #4 tablet Magnesium Oxide [Mag Ox] 400 mg PO DAILYWM #30 tablet Saccharomyces Boulardii [Florastor] 250 mg PO BID #8 capsule Sodium Bicarbonate 650 mg PO DAILY #7 tablet Diet: Regular Activity Restrictions: Activity as Tolerated Shower Restrictions: No Driving Restrictions: No Instruction Topics: ED Kidney Infec Female, ED UTI Cystitis Female Additional Instructions or Follow Up instructions: You were admitted for septic shock from a strong bacterial urinary tract infection and we also found a pneumonia. Please finish taking the prescribed antibiotic tablets, and the probiotics and, if they help clear your sputum, the Mucinex. Resume all your other pre-hospital medications. You are prescribed new Bicarbonate tablets to take for a week, and new Magnesium replacement pills to take for up to a month. See your PCP for refills or further questions regarding your medications. You may travel by ground or by air but stay well hydrated! [place] PCP [place] No Smoking: If you smoke, Please STOP! Call for help. Follow-up with: Sadie Bingham MD [Primary Care Provider] -
[2018-10-30] MEDS: MAGNESIUM OXIDE 400 MG TABLET PO SCH (08:27)
[2018-10-30] MEDS: MULTIVITAMIN TABLET PO SCH (08:27)
[2018-10-30] MEDS: CYANOCOBALAMIN 500 MCG TABLET PO SCH (08:27)
[2018-10-30] MEDS: ZINC SULFATE 220 MG CAPSULE PO SCH (08:27)
[2018-10-30] MEDS: SACCHAROMYCES BOULARDII 250 MG CAPSULE PO SCH (08:28)
[2018-10-30] MEDS: guaiFENesin 600 MG TABLET PO SCH (08:28)
[2018-10-30] MEDS: FAMOTIDINE 20 MG TABLET PO SCH (08:30)
[2018-10-30] MEDS: valACYclovir 500 MG TABLET PO SCH (08:31)
[2018-10-30] MEDS: FOLIC ACID 1 MG TABLET PO SCH (08:31)
[2018-10-30] MEDS: SODIUM BICARBONATE 650 MG TABLET PO SCH (08:31)
[2018-10-30] MEDS: CHOLECALCIFEROL 1,000 UNIT TABLET PO SCH (08:31)
[2018-10-30] MEDS: MORPHINE SULFATE ER 30 MG TABLET PO SCH (08:32)
[2018-10-30] MEDS: ENOXAPARIN 40 MG/0.4 ML SYRINGE SUBQ SCH (08:41)
[2018-10-30] MEDS: ASCORBIC ACID CHEW 500 MG TABLET PO SCH (08:50)
[2018-10-30] MEDS ORDERED: levoFLOXacin 250 MG TABLET PO SCH (09:00)
[2018-10-30 09:27] VITALS: BP 154/115
--- NOTE | 2018-11-04 13:39 | DISCHARGE SUMMARY ---
Physician: Estrellita Garcia MD DATE OF ADMISSION: 10/26/2018 DATE OF DISCHARGE: 10/30/2018 HISTORY OF PRESENT ILLNESS: This is a 58-year-old white female with a history of multiple myeloma, and relapse of the multiple myeloma and getting Pomalyst/Decadron/carfilzomib. 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 Also, a history of hypertension, hyperlipidemia, GERD, chemotherapy- induced transaminitis and anemia and thrombocytopenia deemed to be from chemotherapy. The patient had a second infusion of her chemotherapy and in 2 hours after leaving the hospital developed shaking chills, a fever of 102 at home and nausea. She came to the emergency room and was found to have a left lower lobe pneumonia on chest x-ray as well as urinalysis showing pyuria. She had a lactic acid level of 1.3, creatinine of 1.1, elevated liver tests, and elevated white blood count of 29.1. She had a blood pressure at 103/62, which dropped in the ER to 80/40. She was started on aggressive IV fluid resuscitation and admitted to the ICU for septic shock. HOSPITAL COURSE AND DISCHARGE DIAGNOSES 1. Septic shock. The patient required IV saline aggressively administered as well as a central line placed and she was on Levophed drip to maintain a mean arterial pressure of greater than 65. Levophed was able to be weaned off after 2 days. Her underlying infection was also treated. The right IJ CVP line was discontinued before discharge. 2. Urinary tract infection due to ESBL-producing Escherichia coli. Blood cultures drawn in the ER remained negative. The patient was placed on empiric vancomycin, Zosyn for her respiratory infection and Levaquin for the urinary tract infection. When microbiology results showed ESBL-producing Escherichia coli, her antibiotics were tailored to the sensitivities with Levaquin use only, and she was eventually transitioned to oral Levofloxacin 750 mg p.o. daily for 4 more days for a 1-week total course. 3. Lobar pneumonia. Chest x-ray showed consolidation in the left lower lobe. She produced no sputum to send for culture. Her blood cultures never turned positive. She was on empiric iv vancomysin and Zosyn and put on Mucinex and discharged with this for pulmonary toilet and the antibiotic was changed as above. 4. Metabolic acidosis. Carbon dioxide serum level was 17 and she required an IV bicarbonate drip in the ICU, after, it dropped further to 16 on the following day. She still had low serum carbon dioxide levels of 17-19, and was therefore discharged on oral sodium bicarbonate tablets. 5. Acute kidney injury. Patient's admission BUN and creatinine were 23/1.1, which worsened to 26/1.7 on the following day, and then 29/1.9 until eventually improving over the subsequent days. On the day before discharge, her BUN was 17 and creatinine 1.2. She was felt to have probable acute tubular necrosis from hypoperfusion related to the shock on the initial daily, which had been treated with IV saline and iv levophed to maintain a mean arterial pressure of greater than 65. 6. Multiple myeloma, in relapse. Her white count is usually normal according to the [facility] outpatient records. Her very high white blood count was probably reactive from the infection as well as steroid use. While hospitalized, the patient met the palliative care ENERGY SALES BROKER, Kylah Jha, to establish a relationship. 7. Hypomagnesemia. This was felt to be due to insufficient oral intake. This was replaced with IV and p.o. 8. Anemia. This was felt to be due to chemotherapy and described in the HPI. She was maintained on her iron and B12 replacements while here. 9. Chronic pain syndrome. The patient continued with her usual pain medications while here. 10. Osteoporosis. Patient was kept on her calcium and vitamin D while here. Because she has exposed roots of her teeth, no bisphosphonates could be given 11. Hypertension. Once she was no longer in shock, her blood pressure did rise into the hypertensive range and her usual blood pressure medications were restarted. 12. Transaminitis. As in the past, her liver function tests were elevated, presumably from the chemotherapy. At admission, AST 59, ALT 118, alkaline phosphatase 55. These slowly decreased and were in the normal range two days after admission. 13. History of [id number] disease, that had created small-bowel obstruction. There was no indication of any of these types of complications during this admission. ALLERGIES 1. ADHESIVE TAPE. 2. CEFTAZIDINE. 3. DOXORUBICIN. 4. DOXYCYCLINE. 5. VICODIN. MEDICATIONS AT DISCHARGE 1. Albuterol inhaler p.r.n. 2. Zofran tablets p.r.n. 3. Vitamin C 500 mg daily. 4. Lipitor 20 mg every night. 5. Vitamin D3 1000 units daily. 6. Vitamin B12 1000 mcg daily. 7. Decadron 40 mg once a week. 8. Lomotil p.r.n. 9. Folic acid 1 mg daily. 10. Toprol-XL 50 mg every night. 11. MS Contin 30 mg daily. 12. Multivitamin daily. 13. Valtrex 500 mg b.i.d. 14. New: Mucinex 600 mg b.i.d. for about 4 more days. 15. New: Levofloxacin 750 mg daily for 4 more days. 16. Lisinopril 10 mg every night. 17. New: Magnesium oxide 400 mg daily. 18. New: Florastor 250 mg b.i.d. for 4 more days. 19. New: Sodium bicarbonate 650 mg daily. CONDITION OF PATIENT UPON DISCHARGE: Stable. PHYSICAL EXAMINATION VITAL SIGNS: Blood pressure 146/98, heart rate 81-95 in sinus rhythm, afebrile, and room air saturation 98%. HEENT: Unremarkable, except for dentition. NECK: Without JVD. CHEST: Clear except left base diminished, but no rhonchi or wheezes. HEART: Heart sounds were normal with no murmur. ABDOMEN: Soft, nontender. EXTREMITIES: No edema. NEUROLOGIC: Grossly intact. FOLLOWUP: The patient was discharged with the plan to travel by air to the [place] to participate in a memorial service for her mother, who had just , and she would be out of town for about a week. BRENDA Myers of [facility] OK'd this plan and discussed it with the patient. After return, the patient is advised to see her PCP immediately for hospital followup. CODE STATUS: FULL CODE. Time required to complete this entire discharge, chart review, patient education, prescription orders, dictation: 60 minutes. cc: Leighton Lorenz MD, PHD Sadie Bingham MD TD: 11/04/2018 12:48 [facility]
== END 2018-10-30 09:50 | disposition home or self-care (01) | DRG 871 ==
LOC: ED 18:48 → ICU 20:42
PROVIDERS: ADMIT Family Medicine; ATTEND Internal Medicine
PROC: 02PAX3Z Removal of Infusion Device from Heart, External Approach (ICD-10-PCS; principal; 2018-10-28)
DX: A41.9 Sepsis, unspecified organism (principal); A41.51 Sepsis due to Escherichia coli [E. coli]; R65.21 Severe sepsis with septic shock; J18.1 Lobar pneumonia, unspecified organism; N17.0 Acute kidney failure with tubular necrosis; N39.0 Urinary tract infection, site not specified; E87.2 Acidosis; C90.02 Multiple myeloma in relapse; Z94.84 Stem cells transplant status; G89.3 Neoplasm related pain (acute) (chronic); D89.811 Chronic graft-versus-host disease; M85.80 Other specified disorders of bone density and structure, unspecified site; R19.7 Diarrhea, unspecified; R79.89 Other specified abnormal findings of blood chemistry; K08.89 Other specified disorders of teeth and supporting structures; M79.601 Pain in right arm; E87.1 Hypo-osmolality and hyponatremia; E61.2 Magnesium deficiency; D64.81 Anemia due to antineoplastic chemotherapy; Z86.39 Personal history of other endocrine, nutritional and metabolic disease; R11.0 Nausea; T45.1X5A Adverse effect of antineoplastic and immunosuppressive drugs, initial encounter; E86.1 Hypovolemia; M54.6 Pain in thoracic spine; M80.88XS Other osteoporosis with current pathological fracture, vertebra(e), sequela; E78.2 Mixed hyperlipidemia; F43.21 Adjustment disorder with depressed mood; G89.4 Chronic pain syndrome; K02.7 Dental root caries; I10 Essential (primary) hypertension; D50.9 Iron deficiency anemia, unspecified; D51.9 Vitamin B12 deficiency anemia, unspecified; K21.9 Gastro-esophageal reflux disease without esophagitis; Z16.12 Extended spectrum beta lactamase (ESBL) resistance; Z51.5 Encounter for palliative care; Z87.19 Personal history of other diseases of the digestive system; Z88.1 Allergy status to other antibiotic agents; Z79.899 Other long term (current) drug therapy; Z86.2 Personal history of diseases of the blood and blood-forming organs and certain disorders involving the immune mechanism; Z79.891 Long term (current) use of opiate analgesic; Z86.14 Personal history of Methicillin resistant Staphylococcus aureus infection; Z86.711 Personal history of pulmonary embolism; Z79.2 Long term (current) use of antibiotics; Z79.52 Long term (current) use of systemic steroids; Z86.19 Personal history of other infectious and parasitic diseases; Z90.49 Acquired absence of other specified parts of digestive tract
CPT/HCPCS: 36415; 36556; 71045; 71046; 80048; 80053; 80074; 80076; 81001; 82040; 82550; 82607; 82746; 82803; 83540; 83605; 83615; 83690; 83735; 84100; 84466; 85025; 85379; 85610; 87040; 87077; 87086; 87150; 87181; 87275; 87276; 94640; 96374; 96413; 99213; 99223; 99284; 99291; A9270; J2270; J3370; J7040; J7120; J9047; 80202; 81003; 87640

== ENCOUNTER 2018-11-16 10:34 | Outpatient (CLI) | payer MEDICARE, OTHER ==
--- NOTE | 2018-11-16 17:46 | CONSULTATION NOTE ---
Palliative Care Follow Up - Referral Referring Provider: Dr. Mary Ellen Bingham Time of Visit: 11:15-12:00 Referral setting: [facility] Referral Reason: Depression/right arm pain/Multiple Myeoloma - Information Sources Records reviewed: Previous records reviewed History/Review of Systems obtained from: Patient Exam limitations: No limitations - History of Present Illness Update Brief HPI Update: This is a eliecer 58-year-old woman who was diagnosed with multiple myeloma in 09/2011, she has had extensive chemotherapy including an autologous stem cell and allogenic stem cell transplant in 11/2012. Patient does have a history of refractory [id number] disease of the GI tract, and did require a small bowel resection. She has been on a combination treatment for last several years for her multiple myeloma, most recently started on Pomalyst/Decadron/carfilzomib in October, but did have treatment held. She unfortunately did develop pneumonia, has had a recent hospitalization, and was discharged 10/30/2018. She since then has had no further shortness of breath, cough, but has had significant fatigue and been recovering quite slowly. She is here to receive her therapy, and is meeting with palliative care to address her symptoms of pain and depression. Patient does describe her pain mostly mid thoracic area, with known history of compression fractures. She reports her pain exacerbates with standing, and needs to reposition herself frequently. She does get relief with sitting, and lying down. She has been on MS Contin 30 mg in a.m., for extended period of time. She reports her pain is improved slowly, unclear if MS Contin is actually working as she does correlate her pain with activity. She reports she has new pain in her right mid forearm, she denies any cervical stenosis or sharp shooting pains down her shoulder, though this would be consistent with her description of her pain. She does report exacerbating factor pulling rhubarb, and it has continued to improve since then, but it is very tender to touch and with any kind of twisting her manipulation does cause tenderness. Patient also presents with persistent sadness and depression. She recently had the of her mother, with the and went back to [place]. She is leaving on for internment, and plans to see family again though this is a long day of traveling for her. She has previously been on Zoloft, did not find this extremely helpful or not, we did discuss in the context of depression and expectations regarding antidepressants, but often can help with fatigue, poor concentration, and mood elevation. She is willing to consider restarting at least short-term. Patient reports that she is eating well, sips frequently on fluid, is working on keeping her weight maintained, she reports she is weighing in at 124. Social History - Living Situation Living arrangement: At home Living Situation: With family Support System: Patient currently has her daughter and her family living with them, they are to move out at the end of November. She does enjoy grandsons, but finds it quite stressful particularly with just one bathroom. She is supported by her youngest daughter who is currently living with her, as well as her older daughter Johanna, With her very supportive. Patient has been somewhat overwhelmed with the recent loss of her mother and all of the components to go along with that. Medications/Allergies - Medications Home Medications: Ambulatory Orders Medication Instructions Recorded Confirmed Metoprolol Succinate [Toprol Xl] 50 mg PO DAILY PM 03/08/13 11/16/18 Multivitamin [Multivitamins] 1 each PO DAILY 03/08/13 11/16/18 valACYclovir [Valtrex] 500 mg PO BID 03/08/13 11/16/18 Zinc Sulfate 220 mg PO DAILY 12/14/13 11/16/18 Ascorbic Acid [C-1000] 500 mg PO DAILY 02/20/15 11/16/18 Folic Acid 1 mg PO DAILY 02/20/15 11/16/18 Ondansetron HCl [Zofran] 8 mg PO Q8HR PRN 02/20/15 11/16/18 Cholecalciferol (Vitamin D3) 1,000 unit PO DAILY 06/07/15 11/16/18 [Vitamin D3] Morphine Sulfate [Ms Contin] 30 mg PO DAILY 11/13/15 11/16/18 dexAMETHasone [Decadron] 40 mg PO Q7D 02/05/16 11/16/18 Albuterol Sulf [Ventolin Hfa 2 puffs INH Q4HR PRN 04/22/16 11/16/18 Inhaler] Cyanocobalamin (Vitamin B-12) 1,000 mcg PO DAILY 10/30/17 11/16/18 [Vitamin B-12] Diphenoxylate/Atropine [Lomotil] 1 tab ORAL PRN PRN MDD 8 tabs 01/09/18 11/16/18 Pomalidomide [Pomalyst] 4 mg PO DAILY 10/12/18 11/16/18 Lisinopril 10 mg PO QPM 30 Days #30 tablet 10/14/18 11/16/18 Atorvastatin Calcium 20 mg PO QPM 10/27/18 11/16/18 Oxycodone HCl 5 mg PO Q3HR PRN 11/16/18 11/16/18 Venlafaxine ER [Effexor ER] 37.5 mg PO DAILY 11/16/18 11/16/18 - Allergies Allergies/Adverse Reactions: Allergies Allergy/AdvReac Type Severity Reaction Status Date / Time adhesive tape Allergy Rash Verified 11/16/18 15:49 ceftazidime Allergy Rash Verified 11/16/18 15:49 doxorubicin HCl pegylated Allergy Hives Verified 11/16/18 15:49 lipo... * [From Doxil] doxycycline Allergy Rash Verified 11/16/18 15:49 acetaminophen [From Vicodin] AdvReac Nausea Verified 11/16/18 15:49 hydrocodone bitartrate * AdvReac Nausea Verified 11/16/18 15:49 [From Vicodin] Review of Systems - Constitutional Constitutional: reports: Fatigue. denies: Fever, Chills - Ears, Nose & Throat Ears, Nose & Throat: reports: Dry mouth - Cardiovascular Cardiovascular: reports: Decr. exercise tolerance - Respiratory Respiratory: reports: SOB with exertion. denies: Cough, SOB at rest - Gastrointestinal Gastrointestinal: reports: Diarrhea (intermittent), Good appetite. denies: Nausea - Musculoskeletal Musculoskeletal: reports: Muscle pain (right forearm;), Stiffness, Muscle weakness - Integumentary Integumentary: reports: Dryness, Hair changes (thinning) - Neurological Neurological: reports: General weakness, Memory problems, Other (difficulty concentrating) - Psychiatric Psychiatric: reports: Depression - Hematologic/Lymphatic Hematologic/Lymphatic: reports: Anemia, Recurrent infections (recent pneumonia) - All Other Systems All Other Systems: reports: Reviewed and negative Physical Exam - Physical Exam General Appearance: positive: No acute distress, Alert Eyes Bilateral: positive: Normal inspection Neck: positive: Trachea midline Cardiovascular: positive: Regular rate & rhythm Respiratory: positive: No respiratory distress, Breath sounds nml Abdomen: positive: Non-tender, Soft Skin: positive: Dryness Extremities: positive: No pedal edema Neurologic/Psychiatric: positive: Oriented x3, Weakness, Flat affect Palliative Care - POLST Patient has POLST: No POLST Status: Full Code Pain: Pain unchanged, Pain improved, Location (see HPI) Tiredness/Fatigue: Moderate (4-6) Drowsiness/Sedation: Mild (1-3) Nausea: None Depression: Moderate (4-6) Anxiety: Mild (1-3) Dyspnea: None Anorexia: None Sleep: Variable sleep pattern (up a few times; sometimes awakened with pain) Constipation: No Feelings of wellbeing/Perceived Quality of Life: Good, Acceptable - Palliative Care Discussion: Much time spent discussing loss of her mother, and the sequela as far as dealing with the estate and her family. Really want to continue with positive relationships with her brothers, finding many challenges in dealing with the estate. Is looking forward to this last family gathering, for her internment. She did complete her DPOAE at hospital, did not get a copy for records, will bring next time. Discussed next time will continue to focus on goals of care, currently patient hoping to stabilize, have better pain control, and address some of her anxiety and be able to follow through on tasks that need to be prioritized. Results - Lab Results Lab results reviewed: Yes Impression and Recommendations - Palliative Care Impression: This is a 58-year-old woman who has multiple myeloma, status post autologous and allogenic stem cell transplant. She presents with grief reaction, depression, fatigue, and moderately controlled pain. She has had a recent hospitalization related to both side effects of chemotherapy, and community acquired pneumonia. Palliative care to continue to work on quality of life issues including pain and depression, as well as anticipatory guidance. Recommendations/Counseling Done: 1. Acute on chronic pain. Patient's pain is multifactorial, patient has been managed on time release morphine. We did discuss in the context of her exacerbation is with activity, considering transitioning to short acting oxycodone to use in anticipation of activity, and consider transitioning off MS Contin. Prescription given for 5 mg tabs, 1 tab every 3 hours as needed. Patient will work with pre-medicating for activity and discomfort, it is also available for increasing right forearm pain. Did share my concern regarding pattern and her right forearm pain as a result of cervical stenosis or lesion at cervical area. She does report it is improving, and would like to give it a couple weeks before further work-up or evaluation. If it does worsen, she will contact myself or her PCP. 2. Depression. Counseling provided regarding patient's persistent symptoms, she has been on Zoloft in the past. We did discuss given her underlying anxiety, would recommend trialing Effexor 37.5 mg. After weighing benefits and burdens, patient accepted prescription, and will trial for the next 2 to 3 weeks. 3. Weight loss. Patient presents with multifactorial weight loss. She is going to be restarting on the Decadron, this usually helps with her appetite. Reviewed the need to continue with high-calorie shakes, frequent fluids par ticularly given her early satiety, as well as ongoing small feedings. She denies anorexia at this point in time, but we will continue to evaluate. 4. Advanced care planning. Patient did complete her D POA, discussed some further about next steps. Agreed would revisit after she has returned from her trip with her mother. She does understand need to document her up coming wishes, particularly given her underlying fragility. She would like to give direction to her daughters, as well as her daughters are requesting to know what her wishes might be if she were to have a crisis are declined. Time Spent: 45 minutes with greater than 50% of this done in counseling regarding pain and symptom management particular around depression. Anticipatory guidance provided, plan to revisit in 2 weeks.
== END 2018-11-16 10:35 | disposition home or self-care (01) ==
LOC: PC 10:34
PROVIDERS: ATTEND Nurse Practitioner Adult Health
DX: Z51.5 Encounter for palliative care (principal); M79.18 Myalgia, other site; G89.4 Chronic pain syndrome; M54.6 Pain in thoracic spine; F43.23 Adjustment disorder with mixed anxiety and depressed mood; R63.4 Abnormal weight loss; C90.00 Multiple myeloma not having achieved remission; Z79.891 Long term (current) use of opiate analgesic; Z63.4 Disappearance and death of family member; Z94.84 Stem cells transplant status; Z79.899 Other long term (current) drug therapy; Z87.01 Personal history of pneumonia (recurrent); Z87.310 Personal history of (healed) osteoporosis fracture
CPT/HCPCS: 99215

== ENCOUNTER 2018-11-16 15:26 | Outpatient (CLI) | payer MEDICARE, OTHER | END 2018-11-16 15:27 | disposition critical access hospital (66) | LOC: EMS 15:26 | PROVIDERS: ATTEND Surgery | DX: S01.01XA Laceration without foreign body of scalp, initial encounter (principal); R55 Syncope and collapse; W18.39XA Other fall on same level, initial encounter; Y93.89 Activity, other specified; Y92.512 Supermarket, store or market as the place of occurrence of the external cause | CPT/HCPCS: A0425; A0427 ==

== ENCOUNTER 2018-11-16 15:43 | Emergency (ER) | payer MEDICARE, OTHER ==
[2018-11-16] MEDS ORDERED: DEXAMETHASONE 10 MG/ML VIAL IVP STA (15:59)
--- NOTE | 2018-11-16 16:03 | ED Physician Documentation ---
PD HPI SYNCOPE - Stated complaint Stated Complaint: SYNCOPE - Chief complaint Chief Complaint: Trauma Hd/Nk - History obtained from History obtained from: Patient, EMS - History of Present Illness Witnessed: Witnessed Timing - onset: Today Duration: Seconds Preceding symptoms: Vision changes, Diaphoresis, Light headed, Generalized weakness Associated symptoms: Vision changes, Diaphoresis. No: Incontinant of urine, Chest pain, Palpitations Contributing factors: Recent med change Injury occurred: Fell, Head injury Similar symptoms before: Has not had sx before Recently seen: Other - Additional information Additional information: 58-year-old female with a complicated history of multiple myeloma and multiple treatment regimens has recently restarted a third regimen and she is receiving Pomalyst, Decadron and carfilzomib. She has had a break from these agents and because of elevation of liver functions he has restarted these one at a time and she has not had the Decadron for the past 3 rounds. She was supposed to take Decadron today (40mg) but she did not take it before she came to her treatment because she was uncertain if she would be getting it today. She had treatment done today this morning at [place] [facility] [place] and she then went to [facility] on the way home and was standing in line at [facility] when she began to feel lightheaded, diaphoretic and dizzy and had a syncopal episode she was found to be hypotensive at the scene and she continues to be hypotensive here in the emergency department and she has a laceration of the back of her head. 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) : Renal insuffiency HEENT: Chronic vision loss, Other Psych: None Musculoskeletal: Fatigue, Chronic back pain Derm: Other (thinned skin from steroid use) - Past Surgical History Past Surgical History: Yes General: Colonoscopy, 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 Cardiovascular: Other HEENT: Cataracts - Present Medications Home Medications: Ambulatory Orders Medication Instructions Recorded Confirmed RX: Metoprolol Succinate [Toprol 50 mg PO DAILY PM 03/08/13 11/16/18 Xl] RX: Multivitamin [Multivitamins] 1 each PO DAILY 03/08/13 11/16/18 RX: valACYclovir [Valtrex] 500 mg PO BID 03/08/13 11/16/18 RX: Zinc Sulfate 220 mg PO DAILY 12/14/13 11/16/18 RX: Ascorbic Acid [C-1000] 500 mg PO DAILY 02/20/15 11/16/18 RX: Folic Acid 1 mg PO DAILY 02/20/15 11/16/18 RX: Ondansetron HCl [Zofran] 8 mg PO Q8HR PRN 02/20/15 11/16/18 RX: Cholecalciferol (Vitamin D3) 1,000 unit PO DAILY 06/07/15 11/16/18 [Vitamin D3] RX: Morphine Sulfate [Ms Contin] 30 mg PO DAILY 11/13/15 11/16/18 RX: dexAMETHasone [Decadron] 40 mg PO Q7D 02/05/16 11/16/18 RX: Albuterol Sulf [Ventolin Hfa 2 puffs INH Q4HR PRN 04/22/16 11/16/18 Inhaler] RX: Cyanocobalamin (Vitamin B-12) 1,000 mcg PO DAILY 10/30/17 11/16/18 [Vitamin B-12] RX: Diphenoxylate/Atropine 1 tab ORAL PRN PRN MDD 8 tabs 01/09/18 11/16/18 [Lomotil] RX: Pomalidomide [Pomalyst] 4 mg PO DAILY 10/12/18 11/16/18 RX: Lisinopril 10 mg PO QPM 30 Days #30 tablet 10/14/18 11/16/18 RX: Atorvastatin Calcium 20 mg PO QPM 10/27/18 11/16/18 RX: Magnesium Oxide [Mag Ox] 400 mg PO DAILYWM #30 tablet 10/30/18 11/16/18 - Allergies Allergies/Adverse Reactions: Allergies Allergy/AdvReac Type Severity Reaction Status Date / Time adhesive tape Allergy Rash Verified 11/16/18 15:49 ceftazidime Allergy Rash Verified 11/16/18 15:49 doxorubicin HCl pegylated Allergy Hives Verified 11/16/18 15:49 lipo... * [From Doxil] doxycycline Allergy Rash Verified 11/16/18 15:49 acetaminophen [From Vicodin] AdvReac Nausea Verified 11/16/18 15:49 hydrocodone bitartrate * AdvReac Nausea Verified 11/16/18 15:49 [From Vicodin] - Social History Does the pt smoke?: No Smoking Status: Never smoker Does the pt drink ETOH?: No Does the pt have substance abuse?: No - Immunizations Immunizations are current?: Yes - POLST Patient has POLST: No POLST Status: Full Code PD ED PE NORMAL - Vitals Vital signs reviewed: Yes (hypotensive ) - General General: Alert and oriented X 3, No acute distress, Well developed/nourished - HEENT HEENT: Atraumatic, PERRL, EOMI - Neck Neck: Supple, no meningeal sign, No bony TTP - Cardiac Cardiac: RRR, No murmur - Respiratory Respiratory: No respiratory distress, Clear bilaterally - Abdomen Abdomen: Soft, Non tender - Back Back: No CVA TTP - Derm Derm: Normal color, Warm and dry, No rash - Extremities Extremities: No deformity, No edema - Neuro Neuro: Alert and oriented X 3, science education professor 2-12 intact, No motor deficit, No sensory deficit, Normal speech Eye Opening: Spontaneous Motor: Obeys Commands Verbal: Oriented GCS Score: 15 - Psych Psych: Normal mood, Normal affect Results - Vitals Vitals: Vital Signs - 24 hr 11/16/18 11/16/18 11/16/18 15:45 16:02 16:38 Temperature 36.4 C L Heart Rate 69 71 98 Respiratory 12 15 20 Rate Blood Pressure 81/55 L 85/57 L 104/69 O2 Saturation 98 100 94 11/16/18 17:25 Temperature Heart Rate 85 Respiratory 11 L Rate Blood Pressure 130/69 O2 Saturation 97 Oxygen O2 Source Room air - EKG (time done) 1556 Rate: Rate (enter#) (71) Rhythm: NSR Intervals: Prolonged QT Ischemia: ST elevation c/w ischemia (inferior <0.8mV) Compare to prior EKG: Old EKG unavailable Computer interpretation: Agree with computer - Labs Labs: Laboratory Tests 11/16/18 11/16/18 11/16/18 15:51 15:51 15:51 WBC 9.2 RBC 3.22 L Hgb 11.0 L Hct 33.4 L MCV 103.7 H MCH 34.3 H MCHC 33.0 RDW 17.4 H Plt Count 231 MPV 9.9 Neut # (Auto) 6.8 H Lymph # (Auto) 1.6 [place] # (Auto) 0.2 Eos # (Auto) 0.4 Baso # (Auto) 0.1 Absolute Nucleated RBC 0.06 Nucleated RBC % 0.7 Manual Slide Review Indicated WBC Morphology NORMAL APPEARANCE Platelet Estimate NORMAL (130-450,000) Platelet Morphology RARE GIANT PLATELETS RBC Morph Micro Appear 1+ TARGET CELLS Sodium 142 Potassium 4.3 Chloride 107 Carbon Dioxide 22 Anion Gap 13.0 BUN 23 H Creatinine 1.3 H Estimated GFR (MDRD) 42 L Glucose 105 H Calcium 8.8 Total Bilirubin 0.5 AST 73 H ALT 42 Alkaline Phosphatase 220 H Troponin I 0.04 B-Natriuretic Peptide Total Protein 6.7 Albumin 3.1 L Globulin 3.6 Albumin/Globulin Ratio 0.9 L Lipase 29 11/16/18 15:51 WBC RBC Hgb Hct MCV MCH MCHC RDW Plt Count MPV Neut # (Auto) Lymph # (Auto) [place] # (Auto) Eos # (Auto) Baso # (Auto) Absolute Nucleated RBC Nucleated RBC % Manual Slide Review WBC Morphology Platelet Estimate Platelet Morphology RBC Morph Micro Appear Sodium Potassium Chloride Carbon Dioxide Anion Gap BUN Creatinine Estimated GFR (MDRD) Glucose Calcium Total Bilirubin AST ALT Alkaline Phosphatase Troponin I B-Natriuretic Peptide 105 H Total Protein Albumin Globulin Albumin/Globulin Ratio Lipase Procedures - Laceration (location) scalp Length in cm: 4 Wound type: Linear, Flap, Clean Neurovascular status: Sensory intact, Motor intact, Vascular intact Anesthesia: Lidocaine 1%, With bicarb Wound Preparation: Hibiclens, Irrigated copiously NS, Wound explored, To the base Skin layer closure: [place] Other: Patient tolerated well, No complications, Neurovascular intact, Dressing applied, Tetanus UTD Complexity: Simple - IVC sono (time) 1555 Bedside IVC sono: IVC measures (cm) (1.56), Euvolemia PD MEDICAL DECISION MAKING - ED course Complexity details: reviewed old records, reviewed results, re-evaluated patient, considered differential, d/w patient ED course: 58-year-old female with a syncopal episode at [employer] today has cut the back of her head. She is hypotensive on arrival to the emergency department and has not had her dexamethasone today she is administered dexamethasone 10 mg IV and intravenous saline.She has improvement in her blood pressure into a normal range and feels well. Her initial troponin comes back at 0.04 and a second troponin will be obtained prior to her discharge. I have left the details of this to Dr. Gaspar. Her scalp is stapled and she tolerates this without difficulty. I suspect the patient's syncopal episode today was related to the absence of the dexamethasone in her regimen. Departure - Departure Clinical Impression: Syncope and collapse, Scalp laceration Instructions: ED Laceration Scalp Stitch Or Stap, ED Syncope Vasovagal Follow-Up: Sadie Bingham MD [Primary Care Provider] - Comments: Aleja should be removed in 7-10 days. It appears today that your syncopal episode was likely related to your treatment without the decadron.
[2018-11-16] MEDS ORDERED: SODIUM CHLORIDE 0.9% 1,000 ML IV ONE (16:09)
[2018-11-16 16:31] LABS: BASOPHILS # (AUTO) 0.1 10^3/uL (0.0-0.1); BASOPHILS % (AUTO) 1.6 %; EOSINOPHILS # (AUTO) 0.4 10^3/uL (0.0-0.7); EOSINOPHILS % (AUTO) 4.9 %; LYMPHOCYTES # (AUTO) 1.6 10^3/uL (1.5-3.5); LYMPHOCYTES % (AUTO) 17.6 %; MEAN CORPUSCULAR HEMOGLOBIN 34.3 pg (27.0-31.0); MEAN CORPUSCULAR VOLUME 103.7 fL (81.0-99.0); MEAN PLATELET VOLUME 9.9 fL (7.9-10.8); MONOCYTES # (AUTO) 0.2 10^3/uL (0.0-1.0); MONOCYTES % (AUTO) 2.1 %; NEUTROPHILS # (AUTO) 6.8 10^3/uL (1.5-6.6); NEUTROPHILS % (AUTO) 73.8 %; PLT - PLATELET COUNT 231 10^3/uL (130-450); RED BLOOD COUNT 3.22 10^6/uL (4.20-5.40); RED CELL DISTRIBUTION WIDTH 17.4 % (12.0-15.0); WHITE BLOOD COUNT 9.2 x10^3/uL (4.8-10.8)
[2018-11-16 16:41] LABS: ALBUMIN 3.1 g/dL (3.2-5.5); ALBUMIN/GLOBULIN RATIO 0.9 (1.0-2.2); BILIRUBIN,TOTAL 0.5 mg/dL (0.2-1.0); CALCIUM 8.8 mg/dL (8.5-10.3); CREATININE 1.3 mg/dL (0.4-1.0); TOTAL PROTEIN 6.7 g/dL (6.7-8.2)
[2018-11-16 16:46] LABS: PLATELET ESTIMATE, MANUAL NORMAL (130-450,000) (NORMAL); PLATELET MORPHOLOGY RARE GIANT PLATELETS (NORMAL)
[2018-11-16] MEDS ORDERED: BUFFERED LIDOCAINE 10 ML SYRINGE SUBQ STA (17:14)
[2018-11-16 18:34] VITALS: BP 100/62
--- NOTE | 2018-11-16 19:15 | ONCOLOGY / HEMATOLOGY ---
DATE OF SERVICE: 11/16/2018 Physician: Leighton Lorenz MD, PHD DIAGNOSES 1. Multiple myeloma, IgG kappa, progressing in 2019. Bone marrow MRI showed disease in the bones. a. M-spike at 0.7. Negative bone marrow biopsy. Negative UPEP 07/2018. b. Pomalyst/Decadron/carfilzomib started in 09/2018. Transiently held due to transaminitis. 2. Multiple myeloma previous relapse in 10/2015. a. Daratumumab/Decadron from 02/2016 - 08/2018. 3. Initial multiple myeloma diagnosed in 09/2011. a. Velcade, Revlimid, and Decadron x4 cycles. Poor tolerance to Revlimid due to skin rash. b. Velcade, Doxil, Decadron x2 cycles. Neuropathy. c. Low dose Carfilzomib/Cytoxan/Decadron x4 cycles with partial response. d. VDT-PACE in 07/2015 for stem cell mobilization with complication of bradycardia. e. Autologous stem cell transplant in 08/2012. Melphalan conditioning regimen. f. Tandem allogeneic unrelated stem cell transplant in 11/2012. Conditioning regimen Y90/fludar abine. 4. 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 a. Recurrent prednisone use from 08/2014. b. Resection of the small bowel with some resolution of symptoms in 10/2017. c. Previous prednisone discontinued in 12/2015. 5. Chronic back pain due to compression fracture from myeloma. a. MS-Contin 30 mg daily. 6. History of iron and B12 deficiency, status post parenteral infusions with improvement intermitten tly. 7. Osteopenia and poor dental health preventing bisphosphonate infusion. a. Pending dental extractions and a denture. 8. Abnormal liver function tests due to glucosamine/chondroitin and most recently glutamine for neur opathies. HISTORY OF PRESENT ILLNESS: As dictated on 08/10/2018 for detailed history. Patient is here for [facility] care regarding her above high complexity issues. We have resumed her chemotherapy, 1 drug at a time. She far is tolerating well with no further escalation of her liver enzymes. Again, this is du e to supplemental drugs. She started Carfilzomib with a dosing 2 weeks ago. She started Pomalyst a week ago. We are adding Decadron today. She also had a hospitalization for infection after a trip to the [place] attending her mother's [facility] [place]. She had a fluid overload. At this point, feeling a little bit her. Extensive medical records reviewed during this interval. Did inherit some money from the mother. Looking into dental extractions. REVIEW OF SYSTEMS: The rest of 10 systems reviewed and negative. PAST, FAMILY AND SOCIAL HISTORY: ALLERGIC TO VICODIN, DOXYCYCLINE, REVLIMID. No smoking, no drinki ng . Chronic exposed roots, seeing a dentist. PHYSICAL EXAMINATION VITAL SIGNS: Weight is 56 kg, BP 112/65. HEENT: No jaundice. Oropharynx: No thrush. Extensive broken teeth noted, upper and lower. LUNGS: Clear. HEART: Pulse regular. ABDOMEN: Soft, nontender. EXTREMITIES: Trace edema bilaterally. SKIN: No new petechiae or purpura. Old ecchymosis noted, healing well. LABORATORIES: WBC 8 K. HCT 37%, platelets 252 K, ANC 4.1 K. Creatinine 1.2. AST 61, ALT 41, alkal ine phosphatase 238. LDH 151. [place] light chain level, lower at 46. ASSESSMENT AND PLAN 1. Multiple myeloma. She will have her Carfilzomib, high dose weekly. She has resumed. Pomalyst a nd doing well. Today is cycle 2, day 8 of her Pomalyst, relapsed and refractory. Resumed Carfilzom ib high dose weekly without inflammation of the liver. She has also resumed her up on the Pomalyst. Today is day 8. Liver enzymes slight up but no concern. She will add her Decadron and move on with the cycle of treatment. 2. Dental extraction. I encouraged her to have this done as soon as possible. Denture will be the simplest, rather than the implants. After healing up, we will be able to give her bisphosphonate for her bone. 3. Pain issues. Continue on MS Contin 30 mg daily. Aleve b.i.d. as needed. 4. Follow up as chemo schedule planned. cc: Sadie Bingham MD TD: 11/16/2018 15:49
== END 2018-11-16 18:51 | disposition home or self-care (01) ==
LOC: ED 15:43
DX: R55 Syncope and collapse (principal); I95.9 Hypotension, unspecified; T38.0X6A Underdosing of glucocorticoids and synthetic analogues, initial encounter; Z91.128 Patient's intentional underdosing of medication regimen for other reason; S01.01XA Laceration without foreign body of scalp, initial encounter; W18.30XA Fall on same level, unspecified, initial encounter; Y93.89 Activity, other specified; Y92.512 Supermarket, store or market as the place of occurrence of the external cause; C90.00 Multiple myeloma not having achieved remission; I10 Essential (primary) hypertension; I45.81 Long QT syndrome
CPT/HCPCS: 12002; 80053; 83690; 83880; 84484; 85025; 93005; 96361; 96374; 99283; 99284

== ENCOUNTER 2018-11-30 13:29 | Outpatient (CLI) | payer MEDICARE ==
--- NOTE | 2018-11-30 16:22 | CONSULTATION NOTE ---
Palliative Care Follow Up - Referral Referring Provider: Dr. 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 She most recently started on Pomalyst/Decadron/Carfilzomib In October.Unfortunately on 11/09/2018 patient had an acute fall, she tipped back, but reports her original fall was on her sacrum. She did have a laceration of her head, that did require giselle. Since this time she has had an exacerbation of her already underlying right sciatica nerve pain. This is improved only somewhat, unfortunately in the middle of this she had to take a trip for her mother's [facility], and was managed on Flexeril and oxycodone. She reports still though severe localized pain in her right hip, sharp shooting down her leg, that continues to persist despite medication and exercises. At this point in time it is quite limiting, including impacting her ability to walk. Her gait is uneven and painful with ambulation. Her other persistent and ongoing pain at baseline is mostly mid thoracic area, with known history of compression fractures. She is usually on MS Contin time- released, recently received a prescription that was immediate release without as good of coverage. Her third area of acute pain is her right forearm area, this is a started to improve, now is exacerbated again, and more localized in her right wrist. Unfortunately this is come to the point where it is impacting her functional status, more problematic with any kind of twisting motion, and any kind of manipulation causes increased pain. She reports the pain has persisted and developed into throbbing, and difficulty gripping. Patient does also have persistent fatigue, intermittent dizziness is improved, her weight has stabilized. She has had no further episodes of dizziness with the discontinuation of her hypertensives. Social History - Living Situation Living arrangement: At home Living Situation: Alone Support System: Patient currently has ex- visiting, but daughter and her family have moved out. This is decreased her stress dramatically, this is to happen over the weekend. [place]. Medications/Allergies - Medications Home Medications: Ambulatory Orders Medication Instructions Recorded Confirmed Multivitamin [Multivitamins] 1 each PO DAILY 03/08/13 11/30/18 valACYclovir [Valtrex] 500 mg PO BID 03/08/13 11/30/18 Zinc Sulfate 220 mg PO DAILY 12/14/13 11/30/18 Ascorbic Acid [C-1000] 500 mg PO DAILY 02/20/15 11/30/18 Folic Acid 1 mg PO DAILY 02/20/15 11/30/18 Ondansetron HCl [Zofran] 8 mg PO Q8HR PRN 02/20/15 11/30/18 Cholecalciferol (Vitamin D3) 1,000 unit PO DAILY 06/07/15 11/30/18 [Vitamin D3] Morphine Sulfate [Ms Contin] 30 mg PO DAILY MDD extended release 11/13/15 11/30/18 dexAMETHasone [Decadron] 40 mg PO Q7D 02/05/16 11/30/18 Albuterol Sulf [Ventolin Hfa 2 puffs INH Q4HR PRN 04/22/16 11/30/18 Inhaler] Cyanocobalamin (Vitamin B-12) 1,000 mcg PO DAILY 10/30/17 11/30/18 [Vitamin B-12] Diphenoxylate/Atropine [Lomotil] 1 tab ORAL PRN PRN MDD 8 tabs 01/09/18 11/30/18 Pomalidomide [Pomalyst] 4 mg PO DAILY 10/12/18 11/30/18 Atorvastatin Calcium 20 mg PO QPM 10/27/18 11/30/18 Oxycodone HCl 5 mg PO Q3HR PRN 11/16/18 11/30/18 Venlafaxine ER [Effexor ER] 37.5 mg PO DAILY 11/16/18 11/30/18 Cyclobenzaprine [Flexeril] 5 - 10 mg PO TID PRN 11/30/18 11/30/18 Gabapentin 100 mg PO ACHS MDD titrating 11/30/18 11/30/18 - Allergies Allergies/Adverse Reactions: Allergies Allergy/AdvReac Type Severity Reaction Status Date / Time adhesive tape Allergy Rash Verified 11/16/18 15:49 ceftazidime Allergy Rash Verified 11/16/18 15:49 doxorubicin HCl pegylated Allergy Hives Verified 11/16/18 15:49 lipo... * [From Doxil] doxycycline Allergy Rash Verified 11/16/18 15:49 acetaminophen [From Vicodin] AdvReac Nausea Verified 11/16/18 15:49 hydrocodone bitartrate * AdvReac Nausea Verified 11/16/18 15:49 [From Vicodin] Review of Systems - Constitutional Constitutional: reports: Fatigue, Poor appetite, Weight stable. denies: Fever, Chills - Eyes Eyes: reports: Vision loss, Corrective lenses - Ears, Nose & Throat Ears, Nose & Throat: reports: Dental decay (working on getting teeth extraction and dentures), Dry mouth - Cardiovascular Cardiovascular: reports: Decr. exercise tolerance - Respiratory Respiratory: reports: SOB with exertion. denies: Wheezing, SOB at rest - Gastrointestinal Gastrointestinal: reports: Constipation, Early satiety. denies: Nausea - Genitourinary Genitourinary: denies: Incontinence - Musculoskeletal Musculoskeletal: reports: Back pain, Muscle aches, Stiffness, Limited range of motion, Muscle weakness, Joint pain (right elbow and wrist) - Integumentary Integumentary: reports: Dryness, Hair changes (thinning) - Neurological Neurological: reports: General weakness, Memory problems (STM), Abnormal gait (related to right sciatica pain) - Psychiatric Psychiatric: reports: Depression (family feels she is doing better; she has noticed much change with meds), Anxiety (related to pain) - Hematologic/Lymphatic Hematologic/Lymphatic: reports: Anemia, Recurrent infections - All Other Systems All Other Systems: reports: Reviewed and negative Physical Exam - Physical Exam General Appearance: positive: Mild distress, Anxious Eyes Bilateral: positive: Normal inspection, No scleral icterus ENT: positive: Dry mucous membranes. negative: Pharyngeal erythema, Oral lesions Neck: positive: No JVD, Trachea midline Cardiovascular: positive: Regular rate & rhythm Respiratory: positive: No respiratory distress Abdomen: positive: Non-tender, Soft Skin: positive: Pallor, Dryness Extremities: positive: No pedal edema Neurologic/Psychiatric: positive: Oriented x3, Mood/affect nml, Weakness, Flat affect Palliative Care - POLST Patient has POLST: No Pain: Pain worsening, Location (see HPI) Tiredness/Fatigue: Moderate (4-6) Drowsiness/Sedation: Mild (1-3) Nausea: None Depression: Mild (1-3) (improved with initiaton of effexor) Anxiety: Mild (1-3) Dyspnea: Mild (1-3) Anorexia: Mild (1-3) Sleep: Sleeps poorly (related to pain exacerbation) Constipation: Yes, Opoid induced, Intermittent constipation Feelings of wellbeing/Perceived Quality of Life: Fair, Worsening (related to recent pain exacerbation) Performance Status: Patient reports current right arm and sciatica/sacral pain is quite limiting as far as her functional status. She is less able to participate in household tasks, is able to manage her ADLs but with increased difficulty. - Palliative Care Discussion: Patient has completed DPO a document, with Beto Gonzales [phone] his primary, and her other daughter is secondary. We did initiate conversation regarding the POLST today, patient would like to be a DNA R. She reports she did have a document in the past, given her multiple myeloma, she definitely does not want chest compressions. We discussed given also her experiences and her goals of care, would recommend selective treatments. Patient would still want treatment for reversible conditions. Counseling and review of form done, she will further discuss with her daughters and we will complete at next visit. Results - Lab Results Lab results reviewed: Yes Impression and Recommendations - Palliative Care Impression: This is a 58-year-old woman who has multiple myeloma, who presents with acute on chronic pain. This is exacerbated by recent fall, concern regarding persistent and exacerbation of her pain. Patient presents with moderate to high symptom burden, palliative care to continue to provide support for pain and symptom management.We will pursue imaging to rule out any fractures given her high risk with her underlying disease process. Recommendations/Counseling Done: 1. Due to on chronic pain. Patient's pain is multifactorial, with 3 distinct etiologies, chronic back pain secondary to history of compression fractures, acute sacral/right sciatica pain exacerbated by recent fall, and right forearm pain, that remains persistent and localized in wrist. Prescription given for time-released MS Contin 30 mg, has only been lasting 4 to 5 hours. Finds time- released more helpful for her chronic pain. Patient has used the Flexeril, does not finding this effective at this current time, she has used it in the past for sciatica pain she will discontinue. She has used the intermittent oxycodone, with limited response as well. Will provide gabapentin, 100 mg at at bedtime, and titrate up every 3 days to effect. Counseling provided regarding mechanism and instruction on use. Prescription provided 400 mg capsules. Consult with the radiologist, will go ahead and order plain films. She is due to see Dr. Bingham , if results available then can consider if needs further imaging depending on results, in agreement with plan. 2. Ashen. Patient was initiated on Effexor 37.5 mg. She does not perceive much difference, but reports her family feels like she is doing better. She is agreed to continue. 3. Weight loss. Patient has been focusing on maintaining her weight, she denies anorexia, is working on small frequent meals and hydration. 4. Advanced care planning. Patient to locate the POA document, has not been scanned into system. Counseling provided regarding POLST, and advanced care planning documents. Reviewed today, she will review with daughters and complete at next visit. Time Spent: 50 minutes with greater than 50% of this done in counseling regarding pain and symptom management, coordination of care with radiology and PCP, and anticipatory guidance. Plan to follow-up next week, will continue treatment plan dependent on outcome of x-rays
== END 2018-11-30 13:30 | disposition home or self-care (01) ==
LOC: PC 13:29
PROVIDERS: ATTEND Nurse Practitioner Adult Health
DX: Z51.5 Encounter for palliative care (principal); G89.4 Chronic pain syndrome; M54.31 Sciatica, right side; M53.3 Sacrococcygeal disorders, not elsewhere classified; M79.631 Pain in right forearm; M25.531 Pain in right wrist; M25.521 Pain in right elbow; M54.6 Pain in thoracic spine; M48.54XS Collapsed vertebra, not elsewhere classified, thoracic region, sequela of fracture; F32.9 Major depressive disorder, single episode, unspecified; C90.00 Multiple myeloma not having achieved remission; Z94.84 Stem cells transplant status; Z79.899 Other long term (current) drug therapy; Z79.52 Long term (current) use of systemic steroids; Z91.81 History of falling; Z79.891 Long term (current) use of opiate analgesic
CPT/HCPCS: 99215

== ENCOUNTER 2018-12-01 10:56 | Outpatient (CLI) | payer MEDICARE ==
--- NOTE | 2018-12-01 14:24 | XRAY Report ---
Reason: HIP PAIN Procedure Date: 12/01/2018 Accession Number: [id number] / [id number] Procedure: XR - Hips 2V BILAT CPT Code: FULL RESULT: EXAM: BILATERAL HIP RADIOGRAPHY EXAM DATE: 12/01/2018 11:50 AM. CLINICAL HISTORY: Hip pain. COMPARISON: HIP BILAT 04/16/2018 11:30 AM. TECHNIQUE: 2 views each. FINDINGS: Bones: The bones are qualitatively osteopenic; this limits evaluation for underlying fractures or masses. No definite displaced fracture is noted. Right Hip: Normal. No dislocation. The hip joint space is preserved. Left Hip: Normal. No dislocation. The hip joint space is preserved. Soft Tissues: Normal. No soft tissue swelling. IMPRESSION: Osteopenia with no definite acute fracture or dislocation detected. RADIA
--- NOTE | 2018-12-01 14:25 | XRAY Report ---
Reason: R SCIATICA PAIN, R HIP PAIN, R ULNAR/WRIST PAIN Procedure Date: 12/01/2018 Accession Number: [id number] / [id number] Procedure: XR - Elbow 3 View RT CPT Code: FULL RESULT: EXAM: RIGHT ELBOW RADIOGRAPHY EXAM DATE: 12/01/2018 11:50 AM. CLINICAL HISTORY: Right sciatica pain, right hip pain, right ulnar/wrist pain. COMPARISON: None. TECHNIQUE: 3 views. FINDINGS: Bones: There is marked osteopenia of the proximal radius with a healing proximal radial fracture noted, ongoing periosteal reaction with fracture line readily visible, mildly angulated fracture. An additional fracture is seen of the head of the radius, intra-articular. Joints: There is an enthesophyte at the ulnar insertion of the triceps. Soft Tissues: Normal. No soft tissue swelling. IMPRESSION: Multiple radius fractures, subacute appearance. RADIA The call report notification system was initiated by Dr. Esteban Carlton at 02:14 PM on 12/01/2018. The above call report findings were discussed with Kylah Jha by Dr. Esteban Carlton at 02:18 PM on 12/01/2018.
--- NOTE | 2018-12-01 14:25 | XRAY Report ---
Reason: R SCIATICA PAIN, R HIP PAIN, R ULNAR/WRIST PAIN Procedure Date: 12/01/2018 Accession Number: [id number] / [id number] Procedure: XR - Sacrum/Coccyx CPT Code: FULL RESULT: EXAM: SACRUM AND COCCYX RADIOGRAPHY EXAM DATE: 12/01/2018 11:50 AM. HISTORY: Right sciatica pain, right hip pain. COMPARISONS: HIP BILAT 04/16/2018. TECHNIQUE: 2 views. FINDINGS: Alignment: The coccyx is normally aligned. Readily visible portions of the sacroiliac joints are normally aligned. The inferior half of the sacrum is not adequately mineralized to assess alignment. Bones: The bones are qualitatively osteopenic; this limits evaluation for underlying fractures or masses. Within these limitations, a coccygeal fracture is detected. Sacral insufficiency fracture cannot be effectively excluded as mineralization of the sacrum is markedly decreased. Joints: Visualized hip joints are within normal limits. The pubic symphysis is normal. For sacroiliac joints, see above. Soft Tissues: Chain sutures seen in the right lower quadrant. IMPRESSION: Marked osteopenia limiting evaluation, especially of the sacrum. RADIA
== END 2018-12-01 10:57 | disposition home or self-care (01) ==
LOC: DI 10:56
PROVIDERS: ATTEND Nurse Practitioner Adult Health
DX: S52.101A Unspecified fracture of upper end of right radius, initial encounter for closed fracture (principal); S52.121A Displaced fracture of head of right radius, initial encounter for closed fracture; M85.89 Other specified disorders of bone density and structure, multiple sites; C90.02 Multiple myeloma in relapse
CPT/HCPCS: 72220; 73521

== ENCOUNTER 2018-12-05 09:47 | Outpatient (CLI) | payer MEDICARE ==
--- NOTE | 2018-12-07 10:44 | MRI Report ---
Reason: ABNORMAL FINDINGS ON DIAGNOSTIC IMAGING OF OTHER S Procedure Date: 12/05/2018 Accession Number: [id number] / [id number] Procedure: MRI - Lumbar Spine W/O CPT Code: FULL RESULT: EXAM: MRI LUMBAR SPINE WITHOUT CONTRAST EXAM DATE: 12/05/2018 11:05 AM. CLINICAL HISTORY: Fell. Lower back pain. Left hip and buttock pain. COMPARISON: MRI LUMBAR SPINE W/O CONT 03/11/2012 9:09 PM. LUMBAR SPINE W/WO 04/10/2017 10:00 AM. TECHNIQUE: Multiplanar, multisequence T1-weighted and fluid-sensitive sequences of the lumbar spine from T12 to S1 without contrast. Other: None. FINDINGS: Spinal Canal: The conus terminates at L1-L2. The conus medullaris and cauda equina are unremarkable. Alignment: There is an 11 degrees levoscoliosis centered on L3. There is a slight flexion deformity at L2-L3. Bone Marrow: Five qdp-xid-mfiisgy lumbar vertebral bodies are assumed. There are old fractures of the superior endplates of L1, L2 and L3. There is no appreciable marrow edema. There is greater than 50% loss of vertebral body height at L1. There is minimal vertebral body height loss at L2 and L3. The findings are unchanged when compared with the prior study. Disk Levels/Facets: T12-L1: There is a retropulsed fragment causing mild canal narrowing. The foramina are patent. L1-L2: There are circumferential osteophytes with mild facet joint osteoarthritis causing mild canal narrowing. The foramina are patent. L2-L3: There are circumferential osteophytes causing mild canal and foraminal narrowing. L3-L4: There is mild disk desiccation. There is moderate facet joint osteoarthritis causing minimal canal and foraminal narrowing. L4-L5: Mild facet joint osteoarthritis. Minimal canal and foraminal narrowing. L5-S1: There is a broad-based posterior disk bulge with minimal facet joint osteoarthritis causing mild canal narrowing. There is mild right and moderate left foraminal narrowing. On the left an endplate osteophyte contacts the L5 nerve root. Disk height loss. Musculature: Normal. No edema or fatty atrophy. Other: The partially visualized retroperitoneum is unremarkable. IMPRESSION: 1. No acute fracture. Old fractures at L1, 2 and 3. 2. Levoscoliosis at L2-L3. 3. Mild degenerative change not significantly altered since the prior study. 4. L5-S1: There is mild canal narrowing. There is mild right and moderate left foraminal narrowing. On the left an endplate osteophyte contacts the L5 nerve root. Disk height loss Comment: The following findings are so common in adults without low back pain that while we report their presence, they must be interpreted with caution and in the context of the clinical situation. (Reference Serenak et al, Spine 2001) Prevalence of findings in patients without low back pain: Disk degeneration (any evidence): 92% Disk desiccation/T2 signal loss: 83% Disk height loss: 56% Disk bulge: 64% Disk protrusion: 32% Annular tear/high intensity zone: 38% RADIA
== END 2018-12-05 09:48 | disposition home or self-care (01) ==
LOC: DI 09:47
PROVIDERS: ATTEND Family Medicine
DX: M53.3 Sacrococcygeal disorders, not elsewhere classified (principal); M48.07 Spinal stenosis, lumbosacral region; M41.86 Other forms of scoliosis, lumbar region; M54.31 Sciatica, right side; M25.551 Pain in right hip; R93.89 Abnormal findings on diagnostic imaging of other specified body structures; R29.6 Repeated falls
CPT/HCPCS: 72148

== ENCOUNTER 2018-12-07 09:14 | Outpatient (CLI) | payer MEDICARE ==
--- NOTE | 2018-12-07 11:22 | CONSULTATION NOTE ---
Palliative Care Follow Up - Referral Referring Provider: Dr. Mary Ellen Bingham Time of Visit: 0296 Referral setting: [facility] – [place] Referral Reason: Acute on Chronic Pain/ Multiple Myeloma/Depression - Information Sources Records reviewed: Previous records reviewed History/Review of Systems obtained from: Patient Exam limitations: No limitations - History of Present Illness Update Brief HPI Update: A eliecer 58-year-old woman who was diagnosed with multiple myeloma in 09/2011, she has had an extensive chemotherapy history including autologous stem cell and allogenic stem cell transplant in 11/2012. She now presents with refractory multiple myeloma, with low tumor burden. She is currently on poly-medicine/Decadron/carfilzomib started in October. She is having some response. She does remain quite anemic. Unfortunate on 11/09/2018 she had an acute fall, she had a laceration of her head, which is currently healing it is scabbed over no signs or symptoms of infection. She already had a right forearm pain, noted a few weeks ago when pulling rhubarb. This was exacerbated with her fall, with her last appointment on ordered for arm/elbow x-ray with noted radial fracture. She has seen orthopedist, since has been healing no further intervention done. She also had exacerbation of her sciatica pain, with sharp shooting pain continuing down her leg, it is continue to persist and impact ambulation. There is only minor improvement with increase in addition of gabapentin. She continues with persistent low back thoracic pain, her most recent MRI did not show a fracture in her pelvis or sacral area, but her L1 does show 50% loss of height. Patient's weight continues to remain stable at 120, she is somewhat limited by her fatigue and activity tolerance. Her depression is better controlled on her Effexor, and continues to see palliative care for pain and symptom management Social History - Living Situation Living arrangement: At home Living Situation: Alone Support System: Patient did most recently lose her mom, she had been living with her, she had asked on hospice. She also had her daughter living with her and her family which have been recently moved out. And her ex- was recently visiting as well and left on Friday. She is enjoying just having some quiet time and less chaos for herself. She does have 2 very supportive daughters, who track her quite closely and are available for any assistance. Medications/Allergies - Medications Home Medications: Ambulatory Orders Medication Instructions Recorded Confirmed Multivitamin [Multivitamins] 1 each PO DAILY 03/08/13 12/07/18 valACYclovir [Valtrex] 500 mg PO BID 03/08/13 12/07/18 Zinc Sulfate 220 mg PO DAILY 12/14/13 12/07/18 Ascorbic Acid [C-1000] 500 mg PO DAILY 02/20/15 12/07/18 Folic Acid 1 mg PO DAILY 02/20/15 12/07/18 Ondansetron HCl [Zofran] 8 mg PO Q8HR PRN 02/20/15 12/07/18 Cholecalciferol (Vitamin D3) 1,000 unit PO DAILY 06/07/15 12/07/18 [Vitamin D3] Morphine Sulfate [Ms Contin] 30 mg PO BID MDD extended release 11/13/15 12/07/18 dexAMETHasone [Decadron] 40 mg PO Q7D 02/05/16 12/07/18 Albuterol Sulf [Ventolin Hfa 2 puffs INH Q4HR PRN 04/22/16 12/07/18 Inhaler] Cyanocobalamin (Vitamin B-12) 1,000 mcg PO DAILY 10/30/17 12/07/18 [Vitamin B-12] Diphenoxylate/Atropine [Lomotil] 1 tab ORAL PRN PRN MDD 8 tabs 01/09/18 12/07/18 Pomalidomide [Pomalyst] 4 mg PO DAILY 10/12/18 12/07/18 Atorvastatin Calcium 20 mg PO QPM 10/27/18 12/07/18 Oxycodone HCl 5 mg PO Q3HR PRN 11/16/18 12/07/18 Venlafaxine ER [Effexor ER] 37.5 mg PO DAILY 11/16/18 12/07/18 Gabapentin 300 mg PO ACHS MDD titrating 11/30/18 12/07/18 - Allergies Allergies/Adverse Reactions: Allergies Allergy/AdvReac Type Severity Reaction Status Date / Time adhesive tape Allergy Rash Verified 12/07/18 09:22 ceftazidime Allergy Rash Verified 12/07/18 09:22 doxorubicin HCl pegylated Allergy Hives Verified 12/07/18 09:22 lipo... * [From Doxil] doxycycline Allergy Rash Verified 12/07/18 09:22 acetaminophen [From Vicodin] AdvReac Nausea Verified 12/07/18 09:22 hydrocodone bitartrate * AdvReac Nausea Verified 12/07/18 09:22 [From Vicodin] Review of Systems - Constitutional Constitutional: reports: Fatigue, Weight stable (120). denies: Fever, Chills - Eyes Eyes: reports: Vision loss, Corrective lenses - Ears, Nose & Throat Ears, Nose & Throat: reports: Dental decay, Dry mouth - Cardiovascular Cardiovascular: reports: Decr. exercise tolerance. denies: Lightheadedness - Respiratory Respiratory: denies: SOB at rest - Gastrointestinal Gastrointestinal: reports: Good appetite. denies: Constipation, Nausea - Musculoskeletal Musculoskeletal: reports: Back pain, Stiffness, Muscle weakness - Integumentary Integumentary: reports: Dryness, Nail changes, Hair changes - Neurological Neurological: reports: General weakness - Psychiatric Psychiatric: reports: Depression (improved) - Hematologic/Lymphatic Hematologic/Lymphatic: reports: Anemia (hgb 11.8) - All Other Systems All Other Systems: reports: Reviewed and negative Physical Exam - Physical Exam General Appearance: positive: No acute distress, Alert Eyes Bilateral: positive: Normal inspection ENT: positive: No signs of dehydration Neck: positive: No JVD, Trachea midline Cardiovascular: positive: Regular rate & rhythm Respiratory: positive: No respiratory distress, Breath sounds nml Abdomen: positive: Soft, Nml bowel sounds Skin: positive: Dryness Extremities: positive: No pedal edema Neurologic/Psychiatric: positive: Oriented x3, Mood/affect nml Palliative Care - POLST Patient has POLST: Yes POLST Status: DNR, Selective Treatment (completed at this visit) Pain: Pain unchanged, Severity (5/10) Tiredness/Fatigue: Mild (1-3) Drowsiness/Sedation: None Nausea: None Depression: Mild (1-3) Anxiety: None Dyspnea: None Anorexia: None Sleep: Sleeps well Constipation: No Feelings of wellbeing/Perceived Quality of Life: Fair, Worsening Performance Status: Patient is being very careful as far as not wanting to further exacerbate her pain in her right arm. She is somewhat limited by her pain in her sciatica and ambulation. She is able to attend her ADLs, and continue to drive. But does have decreased activity tolerance and needs to pace her activities. - Palliative Care Discussion: Patient did follow-up and have discussions with her daughters regarding her wishes. We did complete the POLST today, with DNA R/DN I and selective treatment. We reviewed her goals of care which is to focus on quality of life, she currently would treat reversible conditions including hospitalization, her priorities are spending time with family, and the end of life she would like to have a at home with hospice support. Reports her family is supportive of these goals, and she does have a D POA her daughter Beto Gonzales [phone], paperwork is completed, we are waiting for notary as she was unable to get notarized at her bank. She does recognize the seriousness of her illness, at this point and weighing benefits of burdens she is continuing on with treatment and hoping for the best. She feels well supported, and wants to remain independent as a quality of life issue. She is feeling this is somewhat limited concerning with her increasing pain. Results - Lab Results Lab results reviewed: Yes Impression and Recommendations - Palliative Care Impression: This is a 58-year-old woman who has refractory multiple myeloma, status post autologous and allogenic stem transplant. She does present with radial fracture, exacerbation of her right sciatica pain, and poorly controlled pain. Palliative care to continue to provide support for pain and symptom management, anticipatory guidance and advanced care planning. Recommendations/Counseling Done: 1. Acute on chronic pain. Patient's pain is multi-factorial, currently is poorly controlled, with little impact on the initiation of the gabapentin. We will go ahead and titrate gabapentin to 300 mg in the evening, will add 100 mg in the a.m. and 3 days. She is also to increase her MS Contin 30 mg 2 twice daily. Her goal is to have enough pain relief, to reinitiate her stretching exercises for her sciatica. She would also like to improve her ability to tolerate ambulation. She is aware she needs to be careful related to her osteopenia, and not to exacerbate her right forearm fracture. Consult with oncologist regarding if patient would benefit from radiation, if patient's fracture healing does not result and improvement in pain, can revisit. Patient though does report she has had radiation to her pelvic area. 2. Depression. Patient has been tolerating Effexor 37.5 mg, does appear to assist with mood and anxiety. We will continue to monitor can titrate up if indicated. 3. Weight loss. Patient is remaining stable at 120, she is focusing on keeping hydrated and maintaining current weight status. 4. Advanced care planning. Patient currently is getting active treatment, she does have active disease but low tumor burden. Oncology note does reflect patient would be appropriate for transition to hospice if consistent with patient's goals. Currently patient finding treatment acceptable for her current quality of life. We did complete the POLST with DNA R/DN I and selective treatment. She would accept hospitalization for reversible conditions at this point in time, we would continue to weigh benefits and burdens as these decisions arise in the context of quality of life. She does have a supportive family, we do need to get D POA paperwork notarized and and record though. Time Spent: 45 minutes with greater than 50% of this done in counseling regarding advanced care planning, pain management, and anticipatory guidance. We will follow-up in 2 weeks with visit, telephone call in 1 week to continue to titrate medications to effect
== END 2018-12-07 09:15 | disposition home or self-care (01) ==
LOC: PC 09:14
PROVIDERS: ATTEND Nurse Practitioner Adult Health
DX: Z51.5 Encounter for palliative care (principal); G89.4 Chronic pain syndrome; M54.41 Lumbago with sciatica, right side; M54.6 Pain in thoracic spine; S52.91XD Unspecified fracture of right forearm, subsequent encounter for closed fracture with routine healing; C90.00 Multiple myeloma not having achieved remission; Z94.84 Stem cells transplant status; R53.83 Other fatigue; F32.9 Major depressive disorder, single episode, unspecified; Z79.899 Other long term (current) drug therapy; Z79.52 Long term (current) use of systemic steroids; Z79.891 Long term (current) use of opiate analgesic; Z91.81 History of falling; Z66 Do not resuscitate; Z88.8 Allergy status to other drugs, medicaments and biological substances; Z91.09 Other allergy status, other than to drugs and biological substances
CPT/HCPCS: 99215

== ENCOUNTER 2018-12-21 09:53 | Outpatient (CLI) | payer MEDICARE, OTHER ==
--- NOTE | 2018-12-21 12:43 | CONSULTATION NOTE ---
Palliative Care Follow Up - Referral Referring Provider: Dr. Mary Ellen Bingham Time of Visit: [id number] Referral setting: [facility] – [place] Referral Reason: Acute on Chronic Pain/Multiple Myeloma/Depression - Information Sources Records reviewed: Previous records reviewed History/Review of Systems obtained from: Patient Exam limitations: No limitations - History of Present Illness Update Brief HPI Update: This is a eliecer 58-year-old woman who was diagnosed with multiple myeloma in 09/2011, she had an extensive chemotherapy history including autologous stem cell and allogenic stem cell transplant in 11/2012. She now presents with marrow MRI disease in the bones including bilateral arms, left femur and right iliac bone. She is currently receiving Pomalyst/Decadron/carfilzomib weekly. She has severe osteopenia and osteoporosis and has not been a candidate for biphosphonate's. She did have an acute fall on 11/09/2018 with not only a laceration of her head, but with persistent pain on 11/30 ordered an arm/elbow x-ray and has a noted radial fracture. She saw the orthopedist, but was already healing. Currently her pain continues to improve in this area, she has not been able to lift anything greater than 10 pounds, pain is most acute with any kind of twisting motion. But does feel like it is improving. Her other exacerbation is hirudin of her right sciatica pain. She currently has her gabapentin at 300 mg twice daily, with some improvement, we also increased her MS Contin 30 mg extended release to twice daily as well. She has not needed to use any oxycodone. And she does feel like it is at a good place. Since weight is remained fairly stable at 121. She did have a poor weekend, with severe diarrhea last 24 hours, including cramping. She is wondering if it attributes to something she ate she had fish at [employer]. Patient does have a history of gaovu-[id number]-ygnl disease of the GI tract, resulting in a bowel resection in 10/2017 so she gets quite anxious. But does feel its improved today. She has no residual abdominal pain or cramping on exam. Previous to this episode, she was feeling actually fairly good this last week. Social History - Living Situation Living arrangement: At home Living Situation: Alone Support System: She does live by herself, she has 2 supportive daughters, she does help her daughter Monique malhotra with adult family home, but is able to do that on her own terms.She recently lost her mother, and continues to have an appropriate grief reaction. Medications/Allergies - Medications Home Medications: Ambulatory Orders Medication Instructions Recorded Confirmed Multivitamin [Multivitamins] 1 each PO DAILY 03/08/13 12/21/18 valACYclovir [Valtrex] 500 mg PO BID 03/08/13 12/21/18 Zinc Sulfate 220 mg PO DAILY 12/14/13 12/21/18 Ascorbic Acid [C-1000] 500 mg PO DAILY 02/20/15 12/21/18 Folic Acid 1 mg PO DAILY 02/20/15 12/21/18 Ondansetron HCl [Zofran] 8 mg PO Q8HR PRN 02/20/15 12/21/18 Cholecalciferol (Vitamin D3) 1,000 unit PO DAILY 06/07/15 12/21/18 [Vitamin D3] Morphine Sulfate [Ms Contin] 30 mg PO BID MDD extended release 11/13/15 12/21/18 dexAMETHasone [Decadron] 40 mg PO Q7D 02/05/16 12/21/18 Albuterol Sulf [Ventolin Hfa 2 puffs INH Q4HR PRN 04/22/16 12/21/18 Inhaler] Cyanocobalamin (Vitamin B-12) 1,000 mcg PO DAILY 10/30/17 12/21/18 [Vitamin B-12] Diphenoxylate/Atropine [Lomotil] 1 tab ORAL PRN PRN MDD 8 tabs 01/09/18 12/21/18 Pomalidomide [Pomalyst] 4 mg PO DAILY 10/12/18 12/21/18 Atorvastatin Calcium 20 mg PO QPM 10/27/18 12/21/18 Oxycodone HCl 5 mg PO Q3HR PRN 11/16/18 12/21/18 Venlafaxine ER [Effexor ER] 37.5 mg PO DAILY 11/16/18 12/21/18 Gabapentin 300 mg PO BID 11/30/18 12/21/18 - Allergies Allergies/Adverse Reactions: Allergies Allergy/AdvReac Type Severity Reaction Status Date / Time adhesive tape Allergy Rash Verified 12/07/18 09:22 ceftazidime Allergy Rash Verified 12/07/18 09:22 doxorubicin HCl pegylated Allergy Hives Verified 12/07/18 09:22 lipo... * [From Doxil] doxycycline Allergy Rash Verified 12/07/18 09:22 acetaminophen [From Vicodin] AdvReac Nausea Verified 12/07/18 09:22 hydrocodone bitartrate * AdvReac Nausea Verified 12/07/18 09:22 [From Vicodin] Review of Systems - Constitutional Constitutional: reports: Weight stable - Eyes Eyes: reports: Vision loss, Corrective lenses - Ears, Nose & Throat Ears, Nose & Throat: reports: Dental decay - Cardiovascular Cardiovascular: reports: Decr. exercise tolerance - Respiratory Respiratory: denies: SOB at rest - Gastrointestinal Gastrointestinal: reports: Diarrhea (recent acute/resolved today), Poor appetite, Early satiety. denies: Abdominal pain, Nausea - Genitourinary Genitourinary: denies: Dysuria, Frequency, Urgency - Musculoskeletal Musculoskeletal: reports: Back pain, Stiffness, Muscle weakness - Integumentary Integumentary: reports: Dryness, Hair changes (thinning) - Neurological Neurological: reports: General weakness - Psychiatric Psychiatric: reports: Depression (improved). denies: Anxiety - Hematologic/Lymphatic Hematologic/Lymphatic: reports: Anemia - All Other Systems All Other Systems: reports: Reviewed and negative Physical Exam - Vital Signs Temperature: 36.6 C Pulse Rate: 68 Respiratory Rate: 18 Blood Pressure: 125/79 - Physical Exam General Appearance: positive: No acute distress Eyes Bilateral: positive: Normal inspection ENT: positive: No signs of dehydration Neck: positive: No JVD, Trachea midline Cardiovascular: positive: Regular rate & rhythm Respiratory: positive: No respiratory distress, Breath sounds nml Abdomen: positive: Soft. negative: Distended Skin: positive: Pallor, Dryness Extremities: positive: No pedal edema Neurologic/Psychiatric: positive: Oriented x3, Mood/affect nml, Weakness Palliative Care - POLST Patient has POLST: Yes POLST Status: DNR, Selective Treatment Pain: Pain improved, Location (see HPI; chronic mid thoracic pain from previous fx) Tiredness/Fatigue: Mild (1-3) Drowsiness/Sedation: Mild (1-3) Nausea: None Depression: Mild (1-3) Anxiety: Mild (1-3) Dyspnea: None Anorexia: None Sleep: Sleep improved Constipation: No Feelings of wellbeing/Perceived Quality of Life: Good, Acceptable, Improved Performance Status: Patient remains limited by her fatigue, though is independent in her ADLs. Is still able to drive. She is pacing herself, and making good decisions when she is feeling too fatigued to participate in activities. - Palliative Care Discussion: Patient does feel like she has improved pain management, which is helping her overall quality of life. She is still grieving the loss of her mother, recently her belongings have showed up. Encouraged to participate in grief group, she has had one-on-one with Shadia the bereavement counselor already. She feels like she is doing fairly well, has good and bad days. Reports her depression is currently controlled. Patient does have POLST in place with DNA R and selective treatments, her D POA is her daughter Beto Gonzales [phone]. Patient would have reversible conditions treated, but would continue to weigh benefits and burdens of moving forward with more aggressive measures if were not going to improve her quality of life. Results - Lab Results Lab results reviewed: Yes Impression and Recommendations - Palliative Care Impression: This is a eliecer 58-year-old woman who has refractory multiple myeloma, status post autologous and allogenic stem cell transplant. She does have acute on chronic pain, with recent radial fracture, exacerbation of her right sciatica pain, and poorly controlled back pain. She reports her pain regimen of MS Contin 30 mg extended release twice daily and gabapentin 300 mg twice daily, have improved her overall pain management and severity of pain. She is sati sfied with her current regimen as it is currently. Palliative care to continue provide support for pain and symptom management and anticipatory guidance with advanced care planning. Recommendations/Counseling Done: 1. Acute on chronic pain. Patient's pain is multifactorial, she has had improvement in pain management resulting in improved functional status as well as better sleep. She is currently on the gabapentin 300 mg twice daily, and MS Contin 30 mg extended release twice daily. Prescription was provided for her MS Contin. If patient sciatica does not improve, would recommend increasing gabapentin to 3 times daily. If it is improved enough she can participate in her ongoing exercises, would we offer physical therapy. 2. Depression. Patient is tolerating Effexor 37.5 mg, does appear to assist with mood and anxiety. She can have it titrated up if indicated, and our discussion today is more likely grief reaction related to her mother at this point, I did encourage her to participate in grief group. 3. Weight loss. Patient is remaining stable at 120, she is focusing on keeping hydrated and stable with her weight. She dislikes Ensure, recommended patient as she has no milk intolerance, to initiate instant breakfast at least daily and or if she is skipping meals. 4. Advanced care planning. Patient is currently getting active treatment, she is tolerating the treatment with little side effects. Patient did complete POLST with DNA R/DNI and selective treatment. She would accept hospitalization for reversible conditions at this point in time, including infections. She would continue to weigh benefits and burdens as these decisions arise as well in the context of quality of life. Time Spent: 60 minutes with greater than 50% of this done in counseling regarding pain and symptom management and anticipatory guidance. She would like a visit in 2 weeks from palliative care, Will reevaluate pain regimen, GI symptoms, weight, and depression.
== END 2018-12-21 09:54 | disposition home or self-care (01) ==
LOC: PC 09:53
PROVIDERS: ATTEND Nurse Practitioner Adult Health
DX: Z51.5 Encounter for palliative care (principal); G89.29 Other chronic pain; C90.02 Multiple myeloma in relapse; M79.639 Pain in unspecified forearm; M54.6 Pain in thoracic spine; M54.31 Sciatica, right side; F32.9 Major depressive disorder, single episode, unspecified; R63.4 Abnormal weight loss; R53.83 Other fatigue; Z94.84 Stem cells transplant status; Z79.891 Long term (current) use of opiate analgesic; Z79.899 Other long term (current) drug therapy; Z63.4 Disappearance and death of family member; Z88.6 Allergy status to analgesic agent; Z88.8 Allergy status to other drugs, medicaments and biological substances; Z91.048 Other nonmedicinal substance allergy status; Z66 Do not resuscitate
CPT/HCPCS: 99214

== ENCOUNTER 2019-01-04 11:15 | Outpatient (CLI) | payer MEDICARE, OTHER ==
--- NOTE | 2019-01-04 12:13 | CONSULTATION NOTE ---
Palliative Care Follow Up - Referral Referring Provider: Dr Bingham Time of Visit: Fri01/04/2019. 11:15 - 11:35 Referral setting: [facility] Referral Reason: Pain management - Information Sources Records reviewed: Previous records reviewed History/Review of Systems obtained from: Patient Exam limitations: No limitations - History of Present Illness Update Brief HPI Update: 58-year-old woman with multiple myeloma diagnosed 09/2011, with an extensive chemotherapy history including autologous stem cell and allogenic stem cell transplant 11/2012. She now has marrow MRI disease, including bilateral arms, left femur and right iliac bone and is currently receiving Pomalyst/Decadron/carfilzomib. She has severe osteopenia and osteoporosis and has not been a candidate for biphosphonates. 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 Patient is at [facility] today for chemotherapy. She reports the current pain regimen is working very well. She is having less and less pain all he time, and is hardly using the oxycodone for breakthrough pain. The R radial fracture is not painful and healing well. The hips seems to be getting better; she is limping less. She reports weight is stable, around 121 lbs. She sleeps well, has no constipation, if anything she tends toward having loose stools. She does report she is very fatigued and can get up in the morning, do a few things, then go right back to bed. She finds she does well at the start of the week, but by the fatigue is catching up, and often she is very tired on the weekend and has problems following through on activities. Her oncologist is going to split the dexamethasone into two doses (on Fri and ) of 20mg each, instead of once weekly with the hope of alleviating the end-of-week tiredness. Social History - Living Situation Living arrangement: At home Living Situation: Alone Support System: She lives by herself, she has 2 supportive daughters. She helps her daughter Chrysta some with her adult family home business, according to her capability. Medications/Allergies - Medications Home Medications: Ambulatory Orders Medication Instructions Recorded Confirmed Multivitamin [Multivitamins] 1 each PO DAILY 03/08/13 01/04/19 valACYclovir [Valtrex] 500 mg PO BID 03/08/13 01/04/19 Zinc Sulfate 220 mg PO DAILY 12/14/13 01/04/19 Ascorbic Acid [C-1000] 500 mg PO DAILY 02/20/15 01/04/19 Folic Acid 1 mg PO DAILY 02/20/15 01/04/19 Ondansetron HCl [Zofran] 8 mg PO Q8HR PRN 02/20/15 01/04/19 Cholecalciferol (Vitamin D3) 1,000 unit PO DAILY 06/07/15 01/04/19 [Vitamin D3] Morphine Sulfate [Ms Contin] 30 mg PO BID MDD extended release 11/13/15 01/04/19 dexAMETHasone [Decadron] 20 mg PO .TWICE WEEKLY: M,TH MDD 02/05/16 01/04/19 Total 40mg per week Albuterol Sulf [Ventolin Hfa 2 puffs INH Q4HR PRN 04/22/16 01/04/19 Inhaler] Cyanocobalamin (Vitamin B-12) 1,000 mcg PO DAILY 10/30/17 01/04/19 [Vitamin B-12] Diphenoxylate/Atropine [Lomotil] 1 tab ORAL PRN PRN MDD 8 tabs 01/09/18 01/04/19 Pomalidomide [Pomalyst] 4 mg PO DAILY 10/12/18 01/04/19 Atorvastatin Calcium 20 mg PO QPM 10/27/18 01/04/19 Oxycodone HCl 5 mg PO Q3HR PRN 11/16/18 01/04/19 Venlafaxine ER [Effexor ER] 37.5 mg PO DAILY 11/16/18 01/04/19 Gabapentin 300 mg PO BID 11/30/18 01/04/19 - Allergies Allergies/Adverse Reactions: Allergies Allergy/AdvReac Type Severity Reaction Status Date / Time adhesive tape Allergy Rash Verified 01/04/19 10:05 ceftazidime Allergy Rash Verified 01/04/19 10:05 doxorubicin HCl pegylated Allergy Hives Verified 01/04/19 10:05 lipo... * [From Doxil] doxycycline Allergy Rash Verified 01/04/19 10:05 acetaminophen [From Vicodin] AdvReac Nausea Verified 01/04/19 10:05 hydrocodone bitartrate * AdvReac Nausea Verified 01/04/19 10:05 [From Vicodin] Review of Systems - Constitutional Constitutional: reports: Fatigue, Weight stable (around 121 lbs). denies: Fever, Chills, Poor appetite, Night sweats - Eyes Eyes: reports: Vision loss, Corrective lenses - Ears, Nose & Throat Ears, Nose & Throat: reports: Dental decay - Cardiovascular Cardiovascular: reports: Decr. exercise tolerance - Respiratory Respiratory: denies: SOB at rest - Gastrointestinal Gastrointestinal: reports: Other. denies: Constipation, Change in bowel habits - Genitourinary Genitourinary: denies: Dysuria, Frequency, Urgency - Musculoskeletal Musculoskeletal: reports: Stiffness - Integumentary Integumentary: reports: Dryness, Hair changes (thinning) - Neurological Neurological: reports: General weakness - Psychiatric Psychiatric: denies: Depression, Anxiety - All Other Systems All Other Systems: reports: Reviewed and negative Physical Exam - Vital Signs Temperature: 96.3 F Pulse Rate: 64 O2 Saturation: 99 (room air) Blood Pressure: 127/82 (wrist cuff) - Physical Exam General Appearance: positive: No acute distress, Alert Eyes Bilateral: positive: Normal inspection ENT: positive: No signs of dehydration Neck: positive: Trachea midline Cardiovascular: positive: Regular rate & rhythm Respiratory: positive: No respiratory distress, Breath sounds nml Abdomen: positive: Non-tender, Soft Skin: positive: Dryness Extremities: positive: No pedal edema Neurologic/Psychiatric: positive: Oriented x3, Mood/affect nml, Weakness Palliative Care - POLST Patient has POLST: Yes POLST Status: DNR, Selective Treatment Pain: No pain, Pain improved Tiredness/Fatigue: Moderate (4-6) Drowsiness/Sedation: Moderate (4-6) Nausea: None Depression: None Anxiety: None Dyspnea: None Anorexia: None (fair appetite) Sleep: Sleeps well ("like a log") Constipation: No, Managed Performance Status: Fatigued but paces herself Performs own ADLs Able to drive - Palliative Care Discussion: She has noticed the pain pattern has shifted. Previously it occurred intermitte ntly. Now it's starting to show up at the end of the week and the weekend, which is challenging since the weekend is when many activities are planned. She finds she has to go to bed afterwards. Discussed "budgeting" her activities and energy according to her schedule. She is hoping that switching the dexamethasone dosing to twice weekly may improve her end-of-week fatigue. Impression and Recommendations - Palliative Care Impression: 58-year-old woman who has refractory multiple myeloma, status post autologous and allogenic stem cell transplant. Her chronic pain is well-controlled and improving on the current regimen of long-acting morphine and gabapentin. She is satisfied with the current regimen. Palliative care will continue to provide support for pain and symptom management and anticipatory guidance with advance care planning. Recommendations/Counseling Done: Acute on chronic pain: Patient is pleased to find that she has less and less pain. She continues on the long-acting morphine twice, and is not having to use oxycodone for breakthrough, or is only doing so rarely. Gabapentin is 300mg BID, she does think it's made her voice more hoarse, otherwise no complains. Did write a refill prescription for MS Lim, ok to dispense 01/11/19. Referenced [facility] [employer] [facility] [place] database: no concerning opioid activity. Depression: Denies depression, continue Effexor 37.5 mg. Weight loss: Stabilized, weight is around 121 lbs. Reports not a good appetite, but a fair one. Advance care planning: POLST is DNR and selective treatment. Patient is pursuing chemo therapy, has minimal side effects. She would is agreeable to transfer to hospital for treatment of reversible conditions. Will consider on a [id number] basis. Time Spent: 20 minutes were spent with more than 50% of the time spent on counseling, education and coordination of care with the patient.
== END 2019-01-04 11:16 | disposition home or self-care (01) ==
LOC: PC 11:15
PROVIDERS: ATTEND Nurse Practitioner
DX: Z51.5 Encounter for palliative care (principal); G89.4 Chronic pain syndrome; C90.02 Multiple myeloma in relapse; R63.4 Abnormal weight loss; F32.9 Major depressive disorder, single episode, unspecified; R53.83 Other fatigue; Z79.891 Long term (current) use of opiate analgesic; Z79.899 Other long term (current) drug therapy; Z66 Do not resuscitate; Z94.84 Stem cells transplant status
CPT/HCPCS: 99213

== ENCOUNTER 2019-01-18 08:18 | Outpatient (CLI) | payer MEDICARE ==
--- NOTE | 2019-01-18 13:51 | CONSULTATION NOTE ---
Palliative Care Follow Up - Referral Referring Provider: Dr. Mary Ellen Bingham Time of Visit: 5233-460 Referral setting: [facility] [place] Referral Reason: Pain of neoplastic origin/Multiple Myeloma - Information Sources Records reviewed: Previous records reviewed History/Review of Systems obtained from: Patient Exam limitations: No limitations - History of Present Illness Update Brief HPI Update: This is a eliecer 58-year-old woman diagnosed with multiple myeloma in 09/2011, she has an extensive chemotherapy history including autologous stem cell and allogenic stem transplant in 11/2012. She now presents with MRI marrow disease in the bones, including bilateral arms, left femur, and right iliac bone. She is currently receiving pomalyst/decadron/carilzomib Weekly. She has severe osteopenia and osteoporosis, has not been a candidate for biphosphonate secondary to her poor dental health. Patient has a right radial fracture, continues to improve as well as the pain in the area. She has been able to do more with it, it is tender to palpation, but no numbness or tingling. Her right sciatica pain, has settled down, is fairly localized to her right buttock. She is currently on gabapentin 300 mg twice daily for this, has been able to ambulate without difficulty. She is also on MS Contin 30 mg twice daily with no needed use for oxycodone, this is for her baseline back pain. She is feeling somewhat oversedated, and we are discussing today to titrating back her gabapentin. She still continues with significant fatigue, she has had some improvement without "crashing" with the Decadron twice a week versus just Mondays, they did have a birthday republican for her on Friday, so she does feel like she is continuing with some fatigue related to this. She is trying to pace her activities, but can get overwhelmed at times. She describes it as "crashing", and reports this is improved. She spent most the day just Friday resting and sleeping, versus several days.. Social History - Living Situation Living arrangement: At home Living Situation: Alone Support System: She has 2 daughters who provide her ongoing support. She has been able to manage herself and affairs independently with minimal support. Medications/Allergies - Medications Home Medications: Ambulatory Orders Medication Instructions Recorded Confirmed Multivitamin [Multivitamins] 1 each PO DAILY 03/08/13 01/18/19 valACYclovir [Valtrex] 500 mg PO BID 03/08/13 01/18/19 Zinc Sulfate 220 mg PO DAILY 12/14/13 01/18/19 Ascorbic Acid [C-1000] 500 mg PO DAILY 02/20/15 01/18/19 Folic Acid 1 mg PO DAILY 02/20/15 01/18/19 Ondansetron HCl [Zofran] 8 mg PO Q8HR PRN 02/20/15 01/18/19 Cholecalciferol (Vitamin D3) 1,000 unit PO DAILY 06/07/15 01/18/19 [Vitamin D3] Morphine Sulfate [Ms Contin] 30 mg PO BID MDD extended release 11/13/15 01/18/19 dexAMETHasone [Decadron] 20 mg PO .TWICE WEEKLY: M,TH MDD 02/05/16 01/18/19 Total 40mg per week Albuterol Sulf [Ventolin Hfa 2 puffs INH Q4HR PRN 04/22/16 01/18/19 Inhaler] Cyanocobalamin (Vitamin B-12) 1,000 mcg PO DAILY 10/30/17 01/18/19 [Vitamin B-12] Diphenoxylate/Atropine [Lomotil] 1 tab ORAL PRN PRN MDD 8 tabs 01/09/18 01/18/19 Pomalidomide [Pomalyst] 4 mg PO DAILY 10/12/18 01/18/19 Atorvastatin Calcium 20 mg PO QPM 10/27/18 01/18/19 Oxycodone HCl 5 mg PO Q3HR PRN 11/16/18 01/18/19 Venlafaxine ER [Effexor ER] 37.5 mg PO DAILY 11/16/18 01/18/19 Gabapentin 200 mg PO QDBREAKFAST 11/30/18 01/18/19 Gabapentin [Neurontin] 300 mg PO ACHS 01/18/19 01/18/19 - Allergies Allergies/Adverse Reactions: Allergies Allergy/AdvReac Type Severity Reaction Status Date / Time adhesive tape Allergy Rash Verified 01/04/19 10:05 ceftazidime Allergy Rash Verified 01/04/19 10:05 doxorubicin HCl pegylated Allergy Hives Verified 01/04/19 10:05 lipo... * [From Doxil] doxycycline Allergy Rash Verified 01/04/19 10:05 acetaminophen [From Vicodin] AdvReac Nausea Verified 01/04/19 10:05 hydrocodone bitartrate * AdvReac Nausea Verified 01/04/19 10:05 [From Vicodin] Review of Systems - Constitutional Constitutional: reports: Fatigue, Weight stable (123). denies: Fever, Chills - Eyes Eyes: reports: Vision loss, Corrective lenses - Ears, Nose & Throat Ears, Nose & Throat: reports: Dental decay. denies: Mouth lesions - Cardiovascular Cardiovascular: reports: Decr. exercise tolerance. denies: Chest pain - Respiratory Respiratory: denies: SOB at rest - Gastrointestinal Gastrointestinal: reports: Good appetite. denies: Abdominal pain, Constipation, Nausea - Musculoskeletal Musculoskeletal: reports: Muscle weakness - Integumentary Integumentary: reports: Dryness - Neurological Neurological: reports: General weakness - Psychiatric Psychiatric: denies: Depression, Anxiety - Hematologic/Lymphatic Hematologic/Lymphatic: reports: Anemia - All Other Systems All Other Systems: reports: Reviewed and negative Physical Exam - Vital Signs Temperature: 36.4 C Pulse Rate: 66 Respiratory Rate: 18 Blood Pressure: 143/73 - Physical Exam General Appearance: positive: No acute distress, Other (feeling very tired; awakened from napping) Eyes Bilateral: positive: Normal inspection, No scleral icterus ENT: positive: No signs of dehydration Neck: positive: Trachea midline Cardiovascular: positive: Regular rate & rhythm Respiratory: positive: No respiratory distress, Breath sounds nml Skin: positive: Dryness Extremities: positive: No pedal edema Neurologic/Psychiatric: positive: Oriented x3, Mood/affect nml, Flat affect Palliative Care - POLST Patient has POLST: Yes POLST Status: DNR, Selective Treatment Pain: Pain improved, Location (see HPI) Tiredness/Fatigue: Moderate (4-6) Drowsiness/Sedation: Mild (1-3) Nausea: None Depression: Mild (1-3) Anxiety: Mild (1-3) Dyspnea: None Anorexia: Mild (1-3) Sleep: Sleeps well Constipation: No Feelings of wellbeing/Perceived Quality of Life: Good, Acceptable, Improved Performance Status: Patient with significant fatigue, able to manage her own ADLs. Does wax and wane as far as ability to participate in anything outside of her daily routine. She was pretty exhausted from her surprise birthday republican, but somewhat pleased. Would like to have more energy, discussed titrating back gabapentin trial to see if helped. - Palliative Care Discussion: Patient feels like she is somewhat in a holding pattern, has been a really tough year for her with the loss of her mom, complications related to her illness and hospitalizations. Did introduce her to the [facility] retreat, did encourage her to consider signing up just to have a break. She was interested, will follow up, gave information and brochure. Patient is completed POLST with DNA R and selective treatment. She will continue to weigh treatment choices as well as hospitalization with issues as a arise. Her daughter Monique is her primary D POA her number is [phone] Results - Lab Results Lab results reviewed: Yes Impression and Recommendations - Palliative Care Impression: Is a eliecer 58-year-old woman who has refractory multiple myeloma, status post autologous and allogenic stem cell transplant. Her pain acutely from recent radial fracture is improving, as well as her right sciatica pain, her back pain is currently controlled with MS Contin twice daily. She is having some increased sedation, given her decrease in pain will titrate back gabapentin to see if she gets some improvement. Palliative care to continue provide support for pain and symptom management and anticipatory guidance with advanced care planning as issues arise Recommendations/Counseling Done: 1. Acute on chronic pain. Patient's pain is multifactorial, she has had improvement in pain with her right arm, as well as her sciatica. Will titrate gabapentin currently on 300 mg twice a day, prescription given for 100 mg capsules, she is to start 200 mg in the a.m. and 300 mg in the p.m.. Gradual written out for decreasing 100 mg every week, she will call if her pain exacerbates or worsens or stop the titration. She will continue on the MS Contin 30 mg twice a day as this does appear to be helping. She declined physical therapy, but will continue to participate on her ongoing exercises. She was encouraged to increase her ambulation. 2. Depression. Patient is tolerating her Effexor 37.5 mg, reports that she is doing quite well, we did discuss and review her last year and the multiple challenges that she has been facing. Did encourage to follow-up with [facility] retreat. 3. Weight loss. Patient has actually gained a couple pounds, she is doing well keeping hydrated and stable with her current weight. 4. Advanced care planning. Patient has her advanced care planning documents in place, POLST with DNA R and selective treatments, will continue to address issues as they arise. Patient currently plateaued as far as treatment. Time Spent: 30 minutes with greater than 50% of this done in counseling regarding pain and symptom management, and anticipatory guidance plan at this point in time we will to see her 02/09
== END 2019-01-18 08:19 | disposition home or self-care (01) ==
LOC: PC 08:18
PROVIDERS: ATTEND Nurse Practitioner Adult Health
DX: Z51.5 Encounter for palliative care (principal); G89.3 Neoplasm related pain (acute) (chronic); C90.02 Multiple myeloma in relapse; M54.31 Sciatica, right side; R53.83 Other fatigue; F32.9 Major depressive disorder, single episode, unspecified; M81.0 Age-related osteoporosis without current pathological fracture; Z79.899 Other long term (current) drug therapy; Z79.891 Long term (current) use of opiate analgesic; Z94.84 Stem cells transplant status; Z66 Do not resuscitate
CPT/HCPCS: 99214

== ENCOUNTER 2019-01-20 09:58 | Outpatient (CLI) | payer MEDICARE ==
--- NOTE | 2019-01-20 14:42 | CONSULTATION NOTE ---
Palliative Care Follow Up - Referral Referring Provider: Dr. Mary Ellen Bingham Time of Visit: Referral setting: [facility] [place] Referral Reason: Cellulitis left arm - Information Sources Records reviewed: Previous records reviewed History/Review of Systems obtained from: Patient Exam limitations: No limitations - History of Present Illness Update Brief HPI Update: This is a 59-year-old woman who was diagnosed with multiple myeloma, she has refractory disease and currently on chemotherapy. She called with symptoms of acute infection in her left arm, reports she had a blood draw on Friday, has bruising, but developed streaking and swelling and was painful last night. Reports that has improved some but has not resolved. On examination no open area and skin, a roughened 0.5 x 2 cm area underneath the skin, then edema pooling in the medial aspect of her left elbow, tender to palpation. Warm to touch. She is had no fever or chills but given her underlying immunosuppression and rapid development, we will go ahead and treat for cellulitis. There is no drainage to culture, patient and review of her medications, is on Bactrim DS daily related to her history of [id number]/stem cell transplant. Patient also allergic to ceftazidime with severe reaction and doxycycline, which she feels like was just a rash. Social History - Living Situation Living arrangement: At home Living Situation: Alone Support System: Patient lives alone at home, has support of her 2 daughters. She does have her 10-year-old grandson staying with her currently. Medications/Allergies - Medications Home Medications: Ambulatory Orders Medication Instructions Recorded Confirmed Multivitamin [Multivitamins] 1 each PO DAILY 03/08/13 01/20/19 valACYclovir [Valtrex] 500 mg PO BID 03/08/13 01/20/19 Zinc Sulfate 220 mg PO DAILY 12/14/13 01/20/19 Ascorbic Acid [C-1000] 500 mg PO DAILY 02/20/15 01/20/19 Folic Acid 1 mg PO DAILY 02/20/15 01/20/19 Ondansetron HCl [Zofran] 8 mg PO Q8HR PRN 02/20/15 01/20/19 Cholecalciferol (Vitamin D3) 1,000 unit PO DAILY 06/07/15 01/20/19 [Vitamin D3] Morphine Sulfate [Ms Contin] 30 mg PO BID MDD extended release 11/13/15 01/20/19 dexAMETHasone [Decadron] 20 mg PO .TWICE WEEKLY: M,TH MDD 02/05/16 01/20/19 Total 40mg per week Albuterol Sulf [Ventolin Hfa 2 puffs INH Q4HR PRN 04/22/16 01/20/19 Inhaler] Cyanocobalamin (Vitamin B-12) 1,000 mcg PO DAILY 10/30/17 01/20/19 [Vitamin B-12] Diphenoxylate/Atropine [Lomotil] 1 tab ORAL PRN PRN MDD 8 tabs 01/09/18 01/20/19 Pomalidomide [Pomalyst] 4 mg PO DAILY 10/12/18 01/20/19 Atorvastatin Calcium 20 mg PO QPM 10/27/18 01/20/19 Oxycodone HCl 5 mg PO Q3HR PRN 11/16/18 01/20/19 Venlafaxine ER [Effexor ER] 37.5 mg PO DAILY 11/16/18 01/20/19 Gabapentin 200 mg PO QDBREAKFAST 11/30/18 01/20/19 Gabapentin [Neurontin] 300 mg PO ACHS 01/18/19 01/20/19 Amox/Clav 875/125 [Augmentin 1 tab PO BID MDD 10 days 01/20/19 01/20/19 875/125] Sulfamethox/Trimeth 800/160 1 tab PO DAILY 01/20/19 01/20/19 [Bactrim Ds] - Allergies Allergies/Adverse Reactions: Allergies Allergy/AdvReac Type Severity Reaction Status Date / Time adhesive tape Allergy Rash Verified 01/04/19 10:05 ceftazidime Allergy Rash Verified 01/04/19 10:05 doxorubicin HCl pegylated Allergy Hives Verified 01/04/19 10:05 lipo... * [From Doxil] doxycycline Allergy Rash Verified 01/04/19 10:05 acetaminophen [From Vicodin] AdvReac Nausea Verified 01/04/19 10:05 hydrocodone bitartrate * AdvReac Nausea Verified 01/04/19 10:05 [From Vicodin] Review of Systems - Constitutional Constitutional: reports: Fatigue, Weakness, Weight stable. denies: Fever, Chills - Eyes Eyes: reports: Vision loss, Corrective lenses - Ears, Nose & Throat Ears, Nose & Throat: reports: Dental decay. denies: Ear pain, Nasal congestion, Mouth lesions - Cardiovascular Cardiovascular: reports: Decr. exercise tolerance - Respiratory Respiratory: denies: SOB at rest - Gastrointestinal Gastrointestinal: reports: Early satiety - Musculoskeletal Musculoskeletal: reports: Muscle weakness - Integumentary Integumentary: reports: Dryness, Other (new left arm swelling/pink area of redneess covering inside of medial ascpect of left arm; dull warm/no streaking on exam) - Neurological Neurological: reports: General weakness - Psychiatric Psychiatric: reports: Depression (controlled) - Hematologic/Lymphatic Hematologic/Lymphatic: reports: Anemia - All Other Systems All Other Systems: reports: Reviewed and negative Physical Exam - Vital Signs Temperature: 37.0 C Pulse Rate: 58 Respiratory Rate: 18 Blood Pressure: 132/81 - Physical Exam General Appearance: positive: Mild distress, Anxious Eyes Bilateral: positive: Normal inspection ENT: positive: No signs of dehydration Neck: positive: No JVD, Trachea midline Cardiovascular: positive: Regular rate & rhythm Respiratory: positive: No respiratory distress Skin: positive: Other (see HPI) Extremities: positive: No pedal edema Neurologic/Psychiatric: positive: Oriented x3, Mood/affect nml Palliative Care - POLST Patient has POLST: Yes POLST Status: DNR, Selective Treatment Pain: Comment (has not started gabapentin taper; no change in pain-other than acute pain of left arm cellulitis) Impression and Recommendations - Palliative Care Impression: This is a eliecer 59-year-old woman who has refractory multiple myeloma, status post autologous and allogenic stem cell transplant. She presents today with acute cellulitis of her left arm, she does not present with systemic symptoms at time of visit. Patient high risk for sepsis, complicated by antibiotic aller gies. Recommendations/Counseling Done: 1. Left arm cellulitis. In review of patient's medications, she reports she has been on Bactrim DS daily long-term for her [id number]/stem cell transplant. Unfortunately this leaves us with limited options given her allergies, consult done with pharmacist at hospital regarding allergies and prescribing. In the context of past decisions, will go ahead and start her on Augmentin 1 tab twice daily for 10 days, patient does know to look for symptoms signs of reaction, as well as progressive symptoms of infection. She was instructed to go to the ED if she has any fever chills or no improvement. She has a reaction she will call if urgent, and/or we can try second line recommendation which was Keflex. 2. Acute on chronic pain. Patient is to start gabapentin taper, we will continue with this, she does have oxycodone for acute pain or discomfort. She can warm pack the area. Time Spent: 35 miCounseling provided regarding signs and symptoms to access emergent care, or progression of infection given her underlying immunocompromise.nutes with greater than 50% done in coordination of care follow-up in consult with pharmacy
== END 2019-01-20 09:59 | disposition home or self-care (01) ==
LOC: PC 09:58
PROVIDERS: ATTEND Nurse Practitioner Adult Health
DX: Z51.5 Encounter for palliative care (principal); L03.114 Cellulitis of left upper limb; C90.02 Multiple myeloma in relapse; G89.29 Other chronic pain; Z88.1 Allergy status to other antibiotic agents; Z94.84 Stem cells transplant status; Z79.899 Other long term (current) drug therapy; Z79.891 Long term (current) use of opiate analgesic; Z66 Do not resuscitate
CPT/HCPCS: 99214

== ENCOUNTER 2019-02-09 09:47 | Outpatient (CLI) | payer MEDICARE, OTHER ==
--- NOTE | 2019-02-10 08:19 | CONSULTATION NOTE ---
Palliative Care Follow Up - Referral Referring Provider: Dr. Bingham Time of Visit: VISIT DATE 02/09-0945 Referral setting: [facility] [place] Referral Reason: Pain of neoplastic origin/Relapsed Multiple Myeloma - Information Sources Records reviewed: Previous records reviewed History/Review of Systems obtained from: Patient Exam limitations: No limitations - History of Present Illness Update Brief HPI Update: This is a 59-year-old woman who has relapsed refractory multiple myeloma, is currently on chemotherapy. She has been on multiple lines of treatment as well as auto and allogenic stem cell transplant in 2012. She currently is on oral poly-mist, dexamethasone twice a week and carfilzomib weekly infusions. Patient diagnosed with cellulitis 01/20, originally responded well to the Augmentin, but reoccurred after completion, was restarted on Keflex 02/01/2019 had finished her course, and left arm had improved but recurred in the last 12 hours. Area of concern actually has moved down to her left forearm, about a 3 x 5 cm area, slightly swollen and warm to touch. She does have a refill on her Keflex, she will repeat that for another 2 weeks. She is having loose stools 2-4 times a day, not watery, no bleeding, her baseline tends to be loose anyway. She will start some Florastor x2 weeks, push fluids, as well as take some intermittent Imodium. She has not had any fever or chills, her fatigue she attributes to overdoing this weekend. Previous to this she was feeling better with improved energy. Patient is remained weight stable at 128. Her pain is continued to improve, her sciatica right leg pain is almost resolved and she is almost finished with her gabapentin taper with no increase in pain or discomfort. She [place] go [place] the [place] this [place], and over did, she was quite fatigued yesterday and needed to sleep for almost 24 hours. She is having intermittent trouble with sleeping, but is doing fairly well overall. Social History - Living Situation Living arrangement: At home Living Situation: Alone Support System: [place] 2 [place] she does live alone but feels like she is managing independently. She is feeling up to at this point starting to walk her dog again. Medications/Allergies - Medications Home Medications: Ambulatory Orders Medication Instructions Recorded Confirmed Multivitamin [Multivitamins] 1 each PO DAILY 03/08/13 02/10/19 valACYclovir [Valtrex] 500 mg PO BID 03/08/13 02/10/19 Zinc Sulfate 220 mg PO DAILY 12/14/13 02/10/19 Ascorbic Acid [C-1000] 500 mg PO DAILY 02/20/15 02/10/19 Folic Acid 1 mg PO DAILY 02/20/15 02/10/19 Ondansetron HCl [Zofran] 8 mg PO Q8HR PRN 02/20/15 02/10/19 Cholecalciferol (Vitamin D3) 1,000 unit PO DAILY 06/07/15 02/10/19 [Vitamin D3] Morphine Sulfate [Ms Contin] 30 mg PO BID MDD extended release 11/13/15 02/10/19 dexAMETHasone [Decadron] 20 mg PO .TWICE WEEKLY: M,TH MDD 02/05/16 02/10/19 Total 40mg per week Albuterol Sulf [Ventolin Hfa 2 puffs INH Q4HR PRN 04/22/16 02/10/19 Inhaler] Cyanocobalamin (Vitamin B-12) 1,000 mcg PO DAILY 10/30/17 02/10/19 [Vitamin B-12] Diphenoxylate/Atropine [Lomotil] 1 tab ORAL PRN PRN MDD 8 tabs 01/09/18 02/10/19 Pomalidomide [Pomalyst] 4 mg PO DAILY 10/12/18 02/10/19 Atorvastatin Calcium 20 mg PO QPM 10/27/18 02/10/19 Oxycodone HCl 5 mg PO Q3HR PRN 11/16/18 02/10/19 Venlafaxine ER [Effexor ER] 37.5 mg PO DAILY 11/16/18 02/10/19 Sulfamethox/Trimeth 800/160 1 tab PO DAILY 01/20/19 02/10/19 [Bactrim Ds] Aspirin [Adult Aspirin Regimen] 81 mg PO DAILY 02/01/19 02/10/19 Cephalexin [Keflex] 500 mg PO QID MDD second course 02/1002/10/19 02/10/19 - Allergies Allergies/Adverse Reactions: Allergies Allergy/AdvReac Type Severity Reaction Status Date / Time adhesive tape Allergy Rash Verified 02/01/19 10:01 ceftazidime Allergy Rash Verified 02/01/19 10:01 doxorubicin HCl pegylated Allergy Hives Verified 02/01/19 10:01 lipo... * [From Doxil] doxycycline Allergy Rash Verified 02/01/19 10:01 acetaminophen [From Vicodin] AdvReac Nausea Verified 02/01/19 10:01 hydrocodone bitartrate * AdvReac Nausea Verified 02/01/19 10:01 [From Vicodin] Review of Systems - Constitutional Constitutional: reports: Fatigue, Poor appetite, Weight stable. denies: Fever, Chills - Eyes Eyes: reports: Vision loss, Corrective lenses - Ears, Nose & Throat Ears, Nose & Throat: reports: Dental decay. denies: Mouth lesions - Cardiovascular Cardiovascular: reports: Decr. exercise tolerance - Respiratory Respiratory: denies: SOB at rest - Gastrointestinal Gastrointestinal: reports: Diarrhea (loose stools up to 2-4 x a day), Early satiety. denies: Nausea - Genitourinary Genitourinary: denies: Dysuria - Musculoskeletal Musculoskeletal: reports: Muscle weakness - Integumentary Integumentary: reports: Dryness, Hair changes (thinning) - Neurological Neurological: reports: Memory problems (no change "chemo brain" describes forgetfulness/not confusion) - Hematologic/Lymphatic Hematologic/Lymphatic: reports: Anemia, Recurrent infections (left arm recurred now traveled or forearm see HPI; starting third round of AB) - All Other Systems All Other Systems: reports: Reviewed and negative Physical Exam - Physical Exam General Appearance: positive: Alert Eyes Bilateral: positive: Normal inspection ENT: negative: Pharyngeal erythema Neck: positive: No JVD, Trachea midline Cardiovascular: positive: Regular rate & rhythm Respiratory: positive: No respiratory distress, Diminished in bases. negative: Wheezes, Rales, Rhonchi Skin: positive: Pallor, Dryness Extremities: positive: No pedal edema Neurologic/Psychiatric: positive: Oriented x3, Mood/affect nml, Weakness Palliative Care - POLST Patient has POLST: Yes POLST Status: DNR, Selective Treatment Pain: Pain improved Tiredness/Fatigue: Moderate (4-6), Comment (had overdone on Friday; severe fatigue yesterday-slept most of the day) Nausea: None Depression: Mild (1-3) Anxiety: Mild (1-3) Dyspnea: Mild (1-3) Anorexia: Mild (1-3) Sleep: Variable sleep pattern Constipation: No Feelings of wellbeing/Perceived Quality of Life: Fair, Acceptable Performance Status: Patient does find herself needing to pace herself, she does get quite tired by afternoon. She is managing her own ADLs, she does somewhat overdue as she does like to spend time with her grandchildren. She is still able to drive and she is managing her medications without difficulty. I would put her at a PPS of 80% Results - Lab Results Lab results reviewed: Yes Impression and Recommendations - Palliative Care Impression: This is a eliecer 59-year-old woman who has refractory multiple myeloma, status post autologous and allogenic stem cell, and post multiple lines of chemotherapy. She does present today with recurrent cellulitis her left arm, no systemic symptoms at time of visit. Patient's pain has improved, has been able to titrate down off the gabapentin, patient's depression and anxiety well controlled. Palliative care to continue to provide support for pain and symptom management and anticipatory guidance. Recommendations/Counseling Done: 1. Left arm cellulitis. Patient did complete second round of antibiotics, after finishing Augmentin. She did get almost resolution. Unfortunately she presents today with increased symptoms again, she will repeat another round, she did present present with any systemic symptoms. Patient has been advised if she has fever chills or worsens that she is to go to the ED. She does acknowledge. 2. Diarrhea. Patient does not present with any acute signs of diarrhea, mostly loose related to antibiotics. She will start probiotics and to continue till 2 weeks past finishing latest round of antibiotics. She also will use intermittent Imodium to keep her stools down to 2 times a day. She will call me on if she is feeling dehydrated, has she was somewhat dry this morning, she did get fluid with her Cancer therapy. Can arrange for a liter of fluid on Friday if needed. 3. Pain of neoplastic origin. Patient's acute sciatica pain has resolved, has almost finished her gabapentin taper. She does have oxycodone for acute pain management or exacerbation. She is doing fine for her lower back pain on MS Contin 30 mg twice daily. Does not feel this needs any changes at this point time Rx provided for morphine sulfate extended release 30 mg twice a day 60 tabs. 4. Relapsed multiple myeloma. Discussion and conversation regarding just the chronicity of her current situation and disease, understanding she is running out of treatment options, remains quite engaged with her family, focusing on quality and quantity of life at this point in time and weighing benefits and burdens of treatment decisions as they arise. She is [facility] both by [facility] due for f/up fall, and Dr. Lorenz. 5. Insomnia. Patient has used Ambien in the past, has found it "somewhat of a hangover. We did discuss counseling regarding sleep hygiene, and also could trial melatonin at low-dose 3 mg nightly. Time Spent: 5 minutes with greater than 50% of this done in counseling regarding and symptom management, and anticipatory guidance.
== END 2019-02-09 09:48 | disposition home or self-care (01) ==
LOC: PC 09:47
PROVIDERS: ATTEND Nurse Practitioner Adult Health
DX: Z51.5 Encounter for palliative care (principal); L03.114 Cellulitis of left upper limb; K52.1 Toxic gastroenteritis and colitis; T36.1X5A Adverse effect of cephalosporins and other beta-lactam antibiotics, initial encounter; G89.3 Neoplasm related pain (acute) (chronic); C90.02 Multiple myeloma in relapse; G47.00 Insomnia, unspecified; Z79.899 Other long term (current) drug therapy; Z79.82 Long term (current) use of aspirin; Z79.891 Long term (current) use of opiate analgesic; Z66 Do not resuscitate
CPT/HCPCS: 99215

== ENCOUNTER 2019-03-08 08:50 | Outpatient (CLI) | payer MEDICARE, OTHER ==
--- NOTE | 2019-03-08 11:34 | CONSULTATION NOTE ---
Palliative Care Follow Up - Referral Referring Provider: Dr. Marta Galo (Mary Ellen Bingham MD) Time of Visit: 8009-1436 [place] [facility] [place] Reason: Pain of neoplastic origin/Relapsed Multiple Myeloma - Information Sources Records reviewed: Previous records reviewed History/Review of Systems obtained from: Patient Exam limitations: No limitations - History of Present Illness Update Brief HPI Update: This is a eleicer 59-year-old woman who has relapsed refractory multiple myeloma, is currently on chemotherapy. She has in the past been on multiple lines of treatment as well as auto and allogenic stem cell transplant in 2012. Currently she is on oral Polalyst, dexamethasone, and weekly carfilzomib and feeling quite encouraged that she is showing a good response. Patient in January and was diagnosed with cellulitis, after 2 rounds of antibiotics it does appear to be resolving, is in her left forearm, there is only a small area of superficial thrombophlebitis left. She is finished her Florastor, she does continue to have some loose stools, but much improved. She is only needing to use the Imodium about every 3 days. Patient has had some weight gain of 7 pounds over the weeks, does appear to be lower extremity edema. 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 She does not have any crackles, she has some mild nasal congestion, no wheezing today.She attributes this to allergies, has not had any progression of symptoms. Concern though is patient's blood pressure continues to be elevated, she is 160/92, she had been on lisinopril 20 mg daily, but had discontinued related to her ongoing hypotension and several syncopal episodes. She continues on her metoprolol at 50 mg. Patient does have persistent mid back thoracic pain, that is currently tolerable with the MS Contin 30 mg twice daily. She is learning to pace herself, and take breaks when her pain escalates or she becomes more fatigued. She does not need to use any breakthrough pain medication, and her sciatica at this time is resol iliana. Social History - Living Situation Living arrangement: At home Living Situation: Alone Support System: Patient lives by herself, but has 2 very attentive daughters whose life she is intimately involved with. They do check on her frequently and do make sure she has the support she needs. Medications/Allergies - Medications Home Medications: Ambulatory Orders Medication Instructions Recorded Confirmed Multivitamin [Multivitamins] 1 each PO DAILY 03/08/13 03/09/19 valACYclovir [Valtrex] 500 mg PO BID 03/08/13 03/09/19 Zinc Sulfate 220 mg PO DAILY 12/14/13 03/09/19 Ascorbic Acid [C-1000] 500 mg PO DAILY 02/20/15 03/09/19 Folic Acid 1 mg PO DAILY 02/20/15 03/09/19 Ondansetron HCl [Zofran] 8 mg PO Q8HR PRN 02/20/15 03/09/19 Cholecalciferol (Vitamin D3) 1,000 unit PO DAILY 06/07/15 03/09/19 [Vitamin D3] Morphine Sulfate [Ms Contin] 30 mg PO BID MDD extended release 11/13/15 03/09/19 dexAMETHasone [Decadron] 20 mg PO .TWICE WEEKLY: M,TH MDD 02/05/16 03/09/19 Total 40mg per week Albuterol Sulf [Ventolin Hfa 2 puffs INH Q4HR PRN 04/22/16 03/09/19 Inhaler] Cyanocobalamin (Vitamin B-12) 1,000 mcg PO DAILY 10/30/17 03/09/19 [Vitamin B-12] Diphenoxylate/Atropine [Lomotil] 1 tab ORAL PRN PRN MDD 8 tabs 01/09/18 03/09/19 Pomalidomide [Pomalyst] 4 mg PO DAILY 10/12/18 03/09/19 Atorvastatin Calcium 20 mg PO QPM 10/27/18 03/09/19 Oxycodone HCl 5 mg PO Q3HR PRN 11/16/18 03/09/19 Venlafaxine ER [Effexor ER] 37.5 mg PO DAILY 11/16/18 03/09/19 Aspirin [Adult Aspirin Regimen] 81 mg PO DAILY 02/01/19 03/09/19 Lisinopril 5 mg PO DAILY 03/09/19 03/09/19 Metoprolol Succinate 50 mg PO DAILY 03/09/19 03/09/19 - Allergies Allergies/Adverse Reactions: Allergies Allergy/AdvReac Type Severity Reaction Status Date / Time adhesive tape Allergy Rash Verified 03/01/19 10:52 ceftazidime Allergy Rash Verified 03/01/19 10:52 doxorubicin HCl pegylated Allergy Hives Verified 03/01/19 10:52 lipo... * [From Doxil] doxycycline Allergy Rash Verified 03/01/19 10:52 acetaminophen [From Vicodin] AdvReac Nausea Verified 03/01/19 10:52 hydrocodone bitartrate * AdvReac Nausea Verified 03/01/19 10:52 [From Vicodin] Review of Systems - Constitutional Constitutional: reports: Fatigue, Weight gain (125 to 132 suspect LE edema). denies: Fever, Chills - Eyes Eyes: reports: Vision loss, Corrective lenses - Ears, Nose & Throat Ears, Nose & Throat: reports: Nasal congestion, Dental decay - Cardiovascular Cardiovascular: reports: Edema (new), Decr. exercise tolerance. denies: Chest pain - Respiratory Respiratory: reports: Cough (occasional). denies: SOB at rest - Gastrointestinal Gastrointestinal: reports: Diarrhea (intermittent loose stools; needs to use immodium about every 3 days), Good appetite. denies: Nausea, Reflux/heartburn - Musculoskeletal Musculoskeletal: reports: Back pain, Stiffness, Muscle weakness - Integumentary Integumentary: reports: Dryness, Other (residual 1 cm area of tenderness left forearm; feels improving) - Neurological Neurological: reports: Memory problems - Psychiatric Psychiatric: reports: Depression (currrently controlled) - Hematologic/Lymphatic Hematologic/Lymphatic: reports: Anemia, Recurrent infections (treated x 2 for cellulitis of left arm) - All Other Systems All Other Systems: reports: Reviewed and negative Physical Exam - Vital Signs Temperature: 36.7 C Pulse Rate: 73 Respiratory Rate: 18 Blood Pressure: 160/92 - Physical Exam General Appearance: positive: No acute distress, Alert Eyes Bilateral: positive: Normal inspection ENT: positive: Other (poor dentition). negative: Pharyngeal erythema, Oral lesions Neck: positive: Trachea midline Cardiovascular: positive: Regular rate & rhythm Respiratory: positive: No respiratory distress, Breath sounds nml, Other (dry cough attirubtes to allergies; has not worsened). negative: Wheezes, Rales, Rhonchi Abdomen: positive: Soft. 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 She has oxycodone available for breakthrough pain is not needed it, she has tolerated her gabapentin taper off for her sciatica. She is currently satisfied with her regimen, it does allow her to be functional, and feels like she does not experience any sedation or untoward side effects.) Tiredness/Fatigue: Moderate (4-6) Drowsiness/Sedation: Moderate (4-6) Nausea: None Depression: Mild (1-3) Anxiety: None Dyspnea: None Anorexia: None Sleep: Variable sleep pattern (She still struggles with sleep, please see palliative care discussion suspect has to do with her ongoing grieving process. She has been initiated on melatonin 3 mg, she does not want anything stronger as she is up frequently to void too.) Constipation: No Feelings of wellbeing/Perceived Quality of Life: Good, Acceptable, Improved Performance Status: She does have some activity intolerance and fatigue, she tends to push through it which then gets her on the other side of being too tired and needing to sleep for longer periods of time. She is able to attend her ADLs, she is still driving, she is learning to pace herself. - Palliative Care Discussion: Patient "I was thrilled" when found out about her labs and her response to her treatments. She very much wants to be around and participate as far as goals in her grandchildren's lives, who are quite young. She does attribute some difficulty with sleeping to her ongoing grief process, she has been processing her grief regarding losing her mother fairly recently, and going through her things. She is trying to do things to focus on nutrition, keeping active, and denies any exacerbation of her depression. Results - Lab Results Lab results reviewed: Yes Impression and Recommendations - Palliative Care Impression: This is a eliecer 59-year-old woman who has refractory multiple myeloma, status post autologous/allogenic stem cell, and post multiple lines of chemotherapy. She is currently responding to her current regimen, and is quite pleased. Patient's pain is currently controlled, she does present now with hypertension and lower extremity edema. Palliative care to continue to provide support for pain and symptom management and anticipatory guidance Recommendations/Counseling Done: 1. Hypertension. Given patient's propensity for hypotension, and history of syncope, will reinitiate lisinopril at low dose at 5 mg versus her 20 mg. She is been instructed to take her blood pressure daily, if less than 120/70 to hold lisinopril. We will check in and 1 to 2 weeks and titrate accordingly. 2. Lower extremity edema. Hopefully is most likely related to her activity level and dependency. She does have DEANNA hose at home, she will start using those, and pace herself and elevate her legs. She will notify me if she gets more short of swelling and/or SOB, or this does not resolved. 3. Pain of neoplastic origin. Patient is currently managed on her MS Contin 30 mg twice daily, she is pleased with her current regimen and does appear to meet her functional goals as well as comfort. 4. Left arm cellulitis. This does appear resolved, just has some superficial thrombophlebitis left. She is continue to watch the area but no signs or symptoms of infection at this point in time. 5. Diarrhea. This has improved, is only needing Imodium about every 3 days. She has done better with staying hydrated. 6. Relapsed multiple myeloma. Patient is quite pleased as her numbers are continuing to improve, she continues to hope for the best. Her goals are to remain with quality and quantity of life for as long as possible and support her daughters and enjoy her grandchildren's. 7. Insomnia. Patient without much improvement on melatonin 3 mg at bedtime, does not want to try any other medication. Counseling provided though regarding grief and loss issues with recent of her mother, may be contributing factor. Time Spent: 45 minutes with greater than 50% of this done in counseling regarding symptom management, management of hypertension, and new lower extremity edema. Coordination of care with oncology team.
== END 2019-03-08 08:51 | disposition home or self-care (01) ==
LOC: PC 08:50
PROVIDERS: ATTEND Nurse Practitioner Adult Health
DX: Z51.5 Encounter for palliative care (principal); G89.3 Neoplasm related pain (acute) (chronic); M54.6 Pain in thoracic spine; C90.02 Multiple myeloma in relapse; I10 Essential (primary) hypertension; R60.0 Localized edema; R63.5 Abnormal weight gain; L03.114 Cellulitis of left upper limb; R19.7 Diarrhea, unspecified; G47.00 Insomnia, unspecified; Z79.899 Other long term (current) drug therapy; Z79.891 Long term (current) use of opiate analgesic; Z63.4 Disappearance and death of family member; Z66 Do not resuscitate
CPT/HCPCS: 99215

== ENCOUNTER 2019-04-05 09:32 | Outpatient (CLI) | payer MEDICARE, MEDICAID, OTHER ==
--- NOTE | 2019-04-05 13:08 | CONSULTATION NOTE ---
Palliative Care Follow Up - Referral Referring Provider: Dr. Leighton Lorenz Time of Visit: [id number] Referral setting: [facility] [place] Referral Reason: HTN/Pain of neoplastic origin - Information Sources Records reviewed: Previous records reviewed History/Review of Systems obtained from: Patient Exam limitations: No limitations - History of Present Illness Update Brief HPI Update: She reports this is a eliecer 59-year-old woman who has relapsed refractory multiple myeloma, is currently on treatment of pomalyst, oral dexamethasone and carfilzomib. Is quite pleased that she has had ongoing reasonable response, is currently receiving cycle #9. She has had some difficulty with sleeping mostly related to the dexamethasone, fluctuating fatigue compounded by insomnia and her counts, and has had persistent back pain well managed on her MS Contin 30 mg twice daily. She unfortunately did have a fall about 2 and half weeks ago, with right shoulder pain, does feel like this is improving. She does have limited range of motion and difficulty with raising up and across body. She does not feel she broke anything, but does sound suspicious for a tear or bruising. She also sustained a left black eye, though this is fading. Patient's most persistent symptom, has actually been her hypertension. I have been titrating up her lisinopril, with last increase to 20 mg last week with good results. Her blood pressure today is 127/78 and pulse of 66. She is remained fairly weight neutral 07 02-07 08, her appetite is been good, she did have some upper respiratory symptoms but these have since resolved. No wheezing, or nasal drainage. The only other presenting symptoms today she does have an area of concern behind her left calf, Palpable area of about 1 x 2 cm, tender to touch, seems to follow a vein. No lower extremity swelling, no redness, or warmth in the area. She is only noticed it when she put on her socks. She does have lower extremity swelling of about 1-2+. Social History - Living Situation Living arrangement: At home Living Situation: Alone Support System: Patient does live alone, she is able to manage her own ADLs and meal prep. She fluctuates as far as her energy and this is often in alignment with her sleep. She has 2 daughters who are quite supportive, feels at this point in time she is doing fairly well. Medications/Allergies - Medications Home Medications: Ambulatory Orders Medication Instructions Recorded Confirmed Multivitamin [Multivitamins] 1 each PO DAILY 03/08/13 04/05/19 valACYclovir [Valtrex] 500 mg PO BID 03/08/13 04/05/19 Zinc Sulfate 220 mg PO DAILY 12/14/13 04/05/19 Ascorbic Acid [C-1000] 500 mg PO DAILY 02/20/15 04/05/19 Folic Acid 1 mg PO DAILY 02/20/15 04/05/19 Ondansetron HCl [Zofran] 8 mg PO Q8HR PRN 02/20/15 04/05/19 Cholecalciferol (Vitamin D3) 1,000 unit PO DAILY 06/07/15 04/05/19 [Vitamin D3] Morphine Sulfate [Ms Contin] 30 mg PO BID MDD extended release 11/13/15 04/05/19 dexAMETHasone [Decadron] 20 mg PO .TWICE WEEKLY: M,TH MDD 02/05/16 04/05/19 Total 40mg per week Albuterol Sulf [Ventolin Hfa 2 puffs INH Q4HR PRN 04/22/16 04/05/19 Inhaler] Cyanocobalamin (Vitamin B-12) 1,000 mcg PO DAILY 10/30/17 04/05/19 [Vitamin B-12] Diphenoxylate/Atropine [Lomotil] 1 tab ORAL PRN PRN MDD 8 tabs 01/09/18 04/05/19 Pomalidomide [Pomalyst] 4 mg PO DAILY 10/12/18 04/05/19 Atorvastatin Calcium 20 mg PO QPM 10/27/18 04/05/19 Oxycodone HCl 5 mg PO Q3HR PRN 11/16/18 04/05/19 Venlafaxine ER [Effexor ER] 37.5 mg PO DAILY 11/16/18 04/05/19 Aspirin [Adult Aspirin Regimen] 81 mg PO DAILY 02/01/19 04/05/19 Lisinopril 20 mg PO DAILY 03/09/19 04/05/19 Metoprolol Succinate 50 mg PO DAILY 03/09/19 04/05/19 LORazepam [Ativan] 0.5 mg PO Q8HR PRN 04/05/19 04/05/19 Sulfamethoxazole/Trimethoprim 1 tab PO DAILY 04/05/19 04/05/19 [Sulfamethoxazole-Tmp Ss Tablet] - Allergies Allergies/Adverse Reactions: Allergies Allergy/AdvReac Type Severity Reaction Status Date / Time adhesive tape Allergy Rash Verified 03/01/19 10:52 ceftazidime Allergy Rash Verified 03/01/19 10:52 doxorubicin HCl pegylated Allergy Hives Verified 03/01/19 10:52 lipo... * [From Doxil] doxycycline Allergy Rash Verified 03/01/19 10:52 acetaminophen [From Vicodin] AdvReac Nausea Verified 03/01/19 10:52 hydrocodone bitartrate * AdvReac Nausea Verified 03/01/19 10:52 [From Vicodin] Review of Systems - Constitutional Constitutional: reports: Fatigue, Weight stable. denies: Fever, Chills - Ears, Nose & Throat Ears, Nose & Throat: reports: Dental decay (has not followed up with dental appointment; agreed to make calls this week) - Cardiovascular Cardiovascular: reports: Edema, Decr. exercise tolerance - Respiratory Respiratory: reports: SOB with exertion. denies: Cough, Wheezing, SOB at rest - Gastrointestinal Gastrointestinal: reports: Diarrhea (occasional), Early satiety. denies: Abdominal pain, Nausea - Musculoskeletal Musculoskeletal: reports: Stiffness, Muscle weakness, Joint pain (right shoulder) - Integumentary Integumentary: reports: Dryness - Neurological Neurological: reports: General weakness, Memory problems (mild STM) - Psychiatric Psychiatric: denies: Depression, Anxiety - Hematologic/Lymphatic Hematologic/Lymphatic: reports: Anemia - All Other Systems All Other Systems: reports: Reviewed and negative Physical Exam - Vital Signs Pulse Rate: 66 Respiratory Rate: 18 Blood Pressure: 127/78 - Physical Exam General Appearance: positive: Alert Eyes Bilateral: positive: Normal inspection, Other (left bruise on eye fading) ENT: positive: No signs of dehydration, Other (poor dentition) Neck: positive: No JVD, Trachea midline Cardiovascular: positive: Regular rate & rhythm Respiratory: positive: No respiratory distress, Breath sounds nml, Diminished in bases Abdomen: positive: Non-tender, Soft Skin: positive: Pallor, Dryness Extremities: positive: Pedal edema (1+ bilateral up to knees) Neurologic/Psychiatric: positive: Oriented x3, Mood/affect nml, Weakness, Flat affect Palliative Care - POLST Patient has POLST: Yes POLST Status: DNR, Selective Treatment Pain: Pain unchanged, Location (new pain right shoulder from fall; feels resolving; on MS Contin 30 mg BID for baseline pain; uses oxycodone 5 mg about 2 x week; needed to use with recent fall) Tiredness/Fatigue: Mild (1-3) Drowsiness/Sedation: Mild (1-3) Nausea: None Depression: None Anxiety: None Dyspnea: None Anorexia: None Sleep: Sleeps poorly, Variable sleep pattern Constipation: No Feelings of wellbeing/Perceived Quality of Life: Good, Acceptable, Improved - Palliative Care Discussion: Patient continues to hope for the best, she is encouraged that her multiple myeloma numbers are continuing to respond to her current treatment. She does understand treatment is palliative in nature, but very much wants to extend his much quantity and quality of life as possible. She does have a POLST in place as DNA R and selective treatment. She would continue to treat reversible conditions at this point in time. She feels like she is in a good place both emotionally, she is still having some physical pain from her fall but feels like overall things are improving. She continues to grieve for the loss of her mother, but feels this is improving as well. Results - Lab Results Lab results reviewed: Yes Impression and Recommendations - Palliative Care Impression: This is a eliecer 59-year-old woman who has refractory multiple myeloma, status post autologous/allogenic stem cell and post multiple lines of chemotherapy. She is currently responding to her current regimen, and continues to be quite pleased. Her hypertension is currently under control, she has some mild lower extremity edema, and a new area for superficial phlebitis. Palliative care to continue provide support for pain and symptom management and anticipatory guidance. Recommendations/Counseling Done: 1. Hypertension. Patient is currently being well controlled on her lisinopril at 20 mg daily, this was her prior level of medication before she presented with syncope and hypotension. Patient will continue to track, she has been using her BERT appropriately. Did discuss in the context of her PCP, she has not met Dr. Maharaj yet as Dr. Bingham has left. Encouraged to set an appointment, in particular since she will be getting dental work done in may need some further support. Relies understanding. 2. Lower extremity edema. She continues with residual 1+ lower extremity edema, she does present with an area of concern for superficial thrombophlebitis, it is not hot or red. But it is tender to touch. Instructed to use heat, dry heat as well as to continue with her support hose. She only has one pair, and currently has some off it does cut in wearing her shoulder socks to this area of tenderness. She will contact myself or PCP if worsening symptoms, or develops redness or an area of concern. 3. Pain of neoplastic origin. Patient is currently managed on her MS Contin 30 mg twice daily, she is only used oxycodone 5 mg for breakthrough a couple times this last week, more related to her acute pain. She does feel it is keeping her out of functional level, and is using appropriately. 4. Right shoulder pain, acute. She has residual pain from her fall, she does demonstrate some limitation in range of motion, and tenderness. Appears to be more likely a pole or possible a tear, she declined referral to orthopedics or physical therapy at this point in time. She will let me know if she changes her mind. She does feel as improving not worsening. 5. Insomnia. Patient's insomnia does match pattern of dexamethasone, she does get quite wound up, particularly first day of her treatment. She does have lorazepam 0.5 mg for nausea available, as she does get quite exhausted, encouraged her to try it if she is unable to sleep, melatonin was ineffective. Counseling provided regarding safety, energy conservation, and need for sleep hygiene. Time Spent: 30 minutes with greater than 50% of this done in counseling regarding pain and symptom management encouraged to follow-up with dental appointments, plan to meet again in 1 month, she will call for any acute changes or signs or symptoms.
== END 2019-04-05 09:33 | disposition home or self-care (01) ==
LOC: PC 09:32
PROVIDERS: ATTEND Nurse Practitioner Adult Health
DX: Z51.5 Encounter for palliative care (principal); I10 Essential (primary) hypertension; R60.0 Localized edema; G89.3 Neoplasm related pain (acute) (chronic); M25.511 Pain in right shoulder; G47.00 Insomnia, unspecified; C90.02 Multiple myeloma in relapse; Z79.899 Other long term (current) drug therapy; Z79.891 Long term (current) use of opiate analgesic; Z79.52 Long term (current) use of systemic steroids; Z91.81 History of falling; Z66 Do not resuscitate
CPT/HCPCS: 99214

== ENCOUNTER 2019-05-03 08:59 | Outpatient (CLI) | payer MEDICARE ==
--- NOTE | 2019-05-03 11:21 | CONSULTATION NOTE ---
Palliative Care Follow Up - Referral Referring Provider: Dr. Leighton Lorenz Time of Visit: [phone] Ref[place] setting[place] [facility] [place] Reason: r/o DVT pain left/right LE/Chronic Back Pain/Depression/HTN - Information Sources Records reviewed: Previous records reviewed History/Review of Systems obtained from: Patient Exam limitations: No limitations - History of Present Illness Update Brief HPI Update: This is a eliecer 59-year-old woman who has relapsed refractory multiple myeloma is currently on treatment of pomalyst/decadron/carfilzomib since 09/2018. She has had extensive therapy, including autologous stem cell transplantation, followed by allogenic transplantation in 2012. She has recently received iron transfus ions, without any notable change in her fatigue. Her biggest concern today she presents with some increased acute lower extremity pain and swelling in both her right and left. She does have prominent 5 to 6 cm area of reddened vein, tenderness to palpation, some swelling on her right around the area as well as distal, oncern also may be in the popliteal area, is tenderness around her knee. pain and tenderness on her left with a smaller area of probably 4 to 5 cm. She reports she is noted some discomfort over the week but more acutely over the last 24 to 48 hours. Patient does report she has a history of DVT/PE and has been on Lovenox in the past. This was in 2011, she was on Lovenox for about a year. Patient's pain is acute in her legs, her chronic pain is a 2 out of 10, and is managed well on her MS Contin 30 mg twice daily. Her fatigue is fairly persistent, but she is able to manage her activities of daily living. Her hypertension has been fairly well controlled on her increased dose, though she has not been checking it regularly she presents with 105/72 today. The other significant finding is her continued poor dentition. She has had a waxing and waning right mandibular region abscess that has not been treated with antibiotics. Today it is better, very little swelling, Oral exam just shows broken teeth, noswelling are redness or drainage. Is not present with any lym phadenopathy, just mild tenderness palpation. She is working with getting her teeth pulled, and dentures. Up to this point no and has been willing to treat her abscess, and she cannot get into her primary until May. She does not present with any fever or chills, and appears to be improving and localized we did review signs and symptoms for the threshold to treat. Social History - Living Situation Living arrangement: At home Living Situation: Alone Support System: Patient does live alone, she has 2 daughters who are actively involved in her care, they do spend quite a bit of time together. She denies any unmet needs at this point in time. Medications/Allergies - Medications Home Medications: Ambulatory Orders Medication Instructions Recorded Confirmed Multivitamin [Multivitamins] 1 each PO DAILY 03/08/13 04/19/19 valACYclovir [Valtrex] 500 mg PO BID 03/08/13 04/19/19 Zinc Sulfate 220 mg PO DAILY 12/14/13 04/19/19 Ascorbic Acid [C-1000] 500 mg PO DAILY 02/20/15 04/19/19 Folic Acid 1 mg PO DAILY 02/20/15 04/19/19 Ondansetron HCl [Zofran] 8 mg PO Q8HR PRN 02/20/15 04/19/19 Cholecalciferol (Vitamin D3) 1,000 unit PO DAILY 06/07/15 04/19/19 [Vitamin D3] Morphine Sulfate [Ms Contin] 30 mg PO BID MDD extended release 11/13/15 04/19/19 dexAMETHasone [Decadron] 20 mg PO .TWICE WEEKLY: M,TH MDD 02/05/16 04/19/19 Total 40mg per week Albuterol Sulf [Ventolin Hfa 2 puffs INH Q4HR PRN 04/22/16 04/19/19 Inhaler] Cyanocobalamin (Vitamin B-12) 1,000 mcg PO DAILY 10/30/17 04/19/19 [Vitamin B-12] Diphenoxylate/Atropine [Lomotil] 1 tab ORAL PRN PRN MDD 8 tabs 01/09/18 04/19/19 Pomalidomide [Pomalyst] 4 mg PO DAILY 10/12/18 04/19/19 Atorvastatin Calcium 20 mg PO QPM 10/27/18 04/19/19 Oxycodone HCl 5 mg PO Q3HR PRN 11/16/18 04/19/19 Venlafaxine ER [Effexor ER] 37.5 mg PO DAILY 11/16/18 04/19/19 Aspirin [Adult Aspirin Regimen] 81 mg PO DAILY 02/01/19 04/19/19 Lisinopril 20 mg PO DAILY 03/09/19 04/19/19 Metoprolol Succinate 50 mg PO DAILY 03/09/19 04/19/19 LORazepam [Ativan] 0.5 mg PO Q8HR PRN 04/05/19 04/19/19 Sulfamethoxazole/Trimethoprim 1 tab PO DAILY 04/05/19 04/19/19 [Sulfamethoxazole-Tmp Ss Tablet] - Allergies Allergies/Adverse Reactions: Allergies Allergy/AdvReac Type Severity Reaction Status Date / Time adhesive tape Allergy Rash Verified 04/19/19 09:33 ceftazidime Allergy Rash Verified 04/19/19 09:33 doxorubicin HCl pegylated Allergy Hives Verified 04/19/19 09:33 lipo... * [From Doxil] doxycycline Allergy Rash Verified 04/19/19 09:33 acetaminophen [From Vicodin] AdvReac Nausea Verified 04/19/19 09:33 hydrocodone bitartrate * AdvReac Nausea Verified 04/19/19 09:33 [From Vicodin] Review of Systems - Constitutional Constitutional: reports: Fatigue (no improvement with iron infusion), Weakness, Weight stable - Eyes Eyes: reports: Vision loss, Corrective lenses - Ears, Nose & Throat Ears, Nose & Throat: reports: Dental pain - Cardiovascular Cardiovascular: reports: Decr. exercise tolerance - Respiratory Respiratory: denies: Cough, SOB at rest - Gastrointestinal Gastrointestinal: reports: Early satiety. denies: Constipation, Diarrhea - Musculoskeletal Musculoskeletal: reports: Stiffness, Muscle weakness, Other (LE pain noted in HPI) - Integumentary Integumentary: reports: Dryness, Hair changes (thinning) - Neurological Neurological: reports: General weakness, Memory problems (mild per her report). denies: Dizziness - Psychiatric Psychiatric: denies: Depression, Anxiety (s) - Hematologic/Lymphatic Hematologic/Lymphatic: reports: Blood clots (r/o with order on exam today US right and left) - All Other Systems All Other Systems: reports: Reviewed and negative Physical Exam - Vital Signs Temperature: 36.8 C Pulse Rate: 76 Respiratory Rate: 18 O2 Saturation: 96 (ra @ rest) Blood Pressure: 105/72 - Physical Exam General Appearance: positive: Alert, Mild distress (with LE new pain) Eyes Bilateral: positive: Normal inspection ENT: positive: Other (poor dentition) Neck: positive: Trachea midline, Other (mild tenderness and swelling at right mandible; improved from last exam) Cardiovascular: positive: Regular rate & rhythm Respiratory: positive: Diminished in bases. negative: Wheezes, Rales, Rhonchi Abdomen: positive: Non-tender, Soft Skin: positive: Pallor (sallow), Dryness Extremities: positive: Pedal edema (mild on right but improved from baseline) Neurologic/Psychiatric: positive: Oriented x3, Mood/affect nml, Flat affect Palliative Care - POLST Patient has POLST: Yes POLST Status: DNR, Selective Treatment Pain: Pain unchanged (chronic pain in back controlled on MS contin 30 mg BID;), Comment (new acute pain in LE) Tiredness/Fatigue: Mild (1-3) Drowsiness/Sedation: None Nausea: None Anorexia: None Dyspnea: None Depression: None Anxiety: None Feelings of wellbeing/Perceived Quality of Life: Fair, Worsening (new symptoms) Sleep: Variable sleep pattern Constipation: No Performance Status: Patient is able to attend her own ADLs, she is able to enjoy time with her barry peña though she needs to pace her activities. I would put her at a PPS of 80% - Palliative Care Discussion: Is discouraged with her symptoms, does seem like "there is always something going on". Her dental work and procedures are going to be probably going on through the beginning of the year, she does not have any solid time For pulling her teeth. Awaiting scheduling for ultrasound. She feels like her mood is doing pretty good, she is feeling some grief with the loss of her mom in the first holidays.She has enjoyed hanging out with her grandchildren particularly around upcoming [place]. Results - Lab Results Lab results reviewed: Yes Impression and Recommendations - Palliative Care Impression: This a eliecer 5-year-old woman who has refractory multiple myeloma, status post autologous/allogenic stem cell and post multiple lines of chemotherapy. She is currently responding to her current regimen, and continues. Today she presents with concern regarding possible DVT, will follow-up for rule out. Palliative care to continue provide support for pain and symptom management and anticipatory guidance. Recommendations/Counseling Done: 1. Right and left lower extremity acute pain. Patient does present with reddened and swollen veins right greater than left, concern for DVT. Consulted with oncologist, will arrange for ultrasound for rule out and or confirmation. Patient would need to be treated with Lovenox secondary to her malignancy. Patient has had history of PE 2011. Counseling provided regarding acute signs and symptoms of respiratory distress or chest pain to access emergent care, verbalizes understanding. Will await outcome of study. 2. Hypertension. Patient is currently well controlled on the lisinopril 20 mg, her blood pressure today is within normal limits at 105/72. She has had no dizziness, she has not been tracking his closely. She does have a pending appointment in May with her new PCP. 3. Pain of neoplastic origin. Patient is currently managed on her MS Contin 30 mg twice a day, she has not used any oxycodone for breakthrough pain, despite her lower extremity acute pain. She does feel that MS Contin is continue to keep her functional, and is meeting her goals for pain management. 4. Dental decay. Patient has had waxing and waning mandibular region abscess, today it is without pain, she is scheduled for appointments for dentures and teeth pulling. These are slow to move forward. Patient is a high risk for further concern for bacterial infection, will order chlorhexidine 0.12% rinse for twice daily rinsing to keep bacterial count down. Counseling provided regarding signs and symptoms of acute infection to access care more urgently particularly related to her immune O compromised status. ADDENDUM 05/04 She unfortunately did not receive her ultrasound until 1015 last night, it was negative for DVT vein thrombosis bilaterally, but did show bilateral superficial thrombophlebitis. Including the portion of the right greater saphenous, As well as a small left knee joint effusion. Did consult with her oncologist Dr. Lorenz, his recommendations are for anti-coag. He would like to be on a oral anticoagulant, will start with Xarelto 10 mg daily, depending on insurance coverage, recommended 3 months. Follow-up with patient regarding findings and recommendations from oncologist, she will excelsior picker and start today, as well as stopping her aspirin. Time Spent: 45 minutes with greater than 50% of this done in counseling, coordination of care with oncologist and ordering of tests. Palliative care to continue provide support for pain and symptom management and quality of life issues.
== END 2019-05-03 09:00 | disposition home or self-care (01) ==
LOC: PC 08:59
PROVIDERS: ATTEND Nurse Practitioner Adult Health
DX: Z51.5 Encounter for palliative care (principal); C90.02 Multiple myeloma in relapse; G89.3 Neoplasm related pain (acute) (chronic); K08.89 Other specified disorders of teeth and supporting structures; I80.03 Phlebitis and thrombophlebitis of superficial vessels of lower extremities, bilateral; I10 Essential (primary) hypertension; Z79.899 Other long term (current) drug therapy; Z79.891 Long term (current) use of opiate analgesic; Z66 Do not resuscitate
CPT/HCPCS: 99215

== ENCOUNTER 2019-05-03 22:01 | Outpatient (CLI) | payer MEDICARE ==
--- NOTE | 2019-05-04 00:16 | Ultrasound Report ---
Reason: BILAT LE PAIN Procedure Date: 05/03/2019 Accession Number: [id number] / [id number] Procedure: US - Duplex Ext Veins Bilateral CPT Code: Final Report FULL RESULT: EXAM: BILATERAL LOWER EXTREMITY VENOUS ULTRASOUND EXAM DATE: 05/03/2019 11:36 PM. CLINICAL HISTORY: BILAT LE PAIN. COMPARISON: None. TECHNIQUE: Real-time sonographic vascular imaging was performed by the motel manager through the lower extremities utilizing both color-flow and Doppler spectral analysis. Multiple automobile sales representative static images were saved for review. FINDINGS: Right: Common Femoral Vein (CFV): Normal. CFV-GSV Junction: Normal. Profunda Femoral Vein (PFV): Normal. Femoral Vein (FV) Prox: Normal. Femoral Vein (FV) Mid: Normal. Femoral Vein (FV) Dist: Normal. Popliteal Vein: Normal. Posterior Tibial Veins: Normal. Peroneal Veins: Normal. Left: Common Femoral Vein (CFV): Normal. CFV-GSV Junction: Normal. Profunda Femoral Vein (PFV): Normal. Femoral Vein (FV) Prox: Normal. Femoral Vein (FV) Mid: Normal. Femoral Vein (FV) Dist: Normal. Popliteal Vein: Normal. Posterior Tibial Veins: Normal. Peroneal Veins: Normal. Other: Bilateral superficial thrombophlebitis, involving the portion of the right greater saphenous, right gastrocnemius vein, a left gastrocnemius vein, and a small amount of the left lesser saphenous vein. Incidental note of a small left knee joint effusion. IMPRESSION: No evidence for deep venous thrombosis bilaterally. Bilateral superficial thrombophlebitis. RADIA
== END 2019-05-03 22:02 | disposition home or self-care (01) ==
LOC: DI 22:01
PROVIDERS: ATTEND Nurse Practitioner Adult Health
DX: I80.03 Phlebitis and thrombophlebitis of superficial vessels of lower extremities, bilateral (principal); I80.2 Phlebitis and thrombophlebitis of other and unspecified deep vessels of lower extremities
CPT/HCPCS: 93970

== ENCOUNTER 2019-05-31 09:15 | Outpatient (CLI) | payer MEDICARE ==
--- NOTE | 2019-05-31 13:36 | CONSULTATION NOTE ---
Palliative Care Follow Up - Referral Referring Provider: Dr. Leighton Lorenz Time of Visit: [id number] Referral setting: [facility] [place] Referral Reason: Depression/Multiple Myeloma/Back Pain - Information Sources Records reviewed: Previous records reviewed History/Review of Systems obtained from: Patient Exam limitations: No limitations - History of Present Illness Update Brief HPI Update: This is a eliecer 59-year-old woman who has relapsed refractory multiple myeloma is currently on treatment, Pomalyst/Decadron/carfilzomib and has been on multiple therapies, including autologous stem cell transplant, followed by allogenic transplantation in 2012. There is concern currently with her worsening macrocytic anemia, that she may have MDS. She is pending a bone marrow biopsy this Friday, and is feeling somewhat overwhelmed and discouraged with the understanding this would most likely limit her life expectancy as well. Patient recently presented with right leg swelling, as well as on left, erythema, and was found to rule out a DVT but had superficial thrombophlebitis. Xarelto was started along with pressure stockings and this has continued to improve. She is to do this for a total of 3 months. She does know to hold it for her procedures. Patient also is moving forward on getting her teeth removed, and dentures. This is been a fairly lengthy process, though she is feeling quite confident in Dr. Moseley her oral surgeon. And currently is scheduled for 06/30 to have her teeth pulled out, and is expecting her dentures at that point in time. He did treat her abscess with antibiotics of amoxicillin, and this has resolved after 10 days of treatment. She no longer has any pain. Patient also presents with persistent and increased symptoms of depression. She does attribute this to the pending holidays, loss of her mother and facing the holidays, as well as feeling discouraged with her most recent news. She did meet Dr. Maharaj, she did find that helpful interaction and supportive. She does understand she is quite complex, and needed to reestablish with a PCP. They would like her to have lipids drawn at her next appointment with blood work, we will follow-up and see if this was ordered. Social History - Living Situation Living arrangement: At home Living Situation: Alone Support System: Patient lives at home alone, she is independent in her ADLs. She does have 2 daughters who are quite supportive, and grandchildren who she likes to spend time with. 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 Medications/Allergies - Medications Home Medications: Ambulatory Orders Medication Instructions Recorded Confirmed Multivitamin [Multivitamins] 1 each PO DAILY 03/08/13 05/31/19 valACYclovir [Valtrex] 500 mg PO BID 03/08/13 05/31/19 Zinc Sulfate 220 mg PO DAILY 12/14/13 05/31/19 Ascorbic Acid [C-1000] 500 mg PO DAILY 02/20/15 05/31/19 Folic Acid 1 mg PO DAILY 02/20/15 05/31/19 Ondansetron HCl [Zofran] 8 mg PO Q8HR PRN 02/20/15 05/31/19 Cholecalciferol (Vitamin D3) 1,000 unit PO DAILY 06/07/15 05/31/19 [Vitamin D3] Morphine Sulfate [Ms Contin] 30 mg PO BID MDD extended release 11/13/15 05/31/19 dexAMETHasone [Decadron] 20 mg PO .TWICE WEEKLY: M,TH MDD 02/05/16 05/31/19 Total 40mg per week Albuterol Sulf [Ventolin Hfa 2 puffs INH Q4HR PRN 04/22/16 05/31/19 Inhaler] Cyanocobalamin (Vitamin B-12) 1,000 mcg PO DAILY 10/30/17 05/31/19 [Vitamin B-12] Diphenoxylate/Atropine [Lomotil] 1 tab ORAL PRN PRN MDD 8 tabs 01/09/18 05/31/19 Atorvastatin Calcium 20 mg PO QPM 10/27/18 05/31/19 Oxycodone HCl 5 mg PO Q3HR PRN 11/16/18 05/31/19 Venlafaxine ER [Effexor ER] 75 mg PO DAILY 11/16/18 05/31/19 Lisinopril 20 mg PO DAILY 03/09/19 05/31/19 Metoprolol Succinate 50 mg PO DAILY 03/09/19 05/31/19 LORazepam [Ativan] 0.5 mg PO Q8HR PRN 04/05/19 05/31/19 Rivaroxaban [Xarelto] 10 mg PO DAILY 05/17/19 05/31/19 Pomalidomide [Pomalyst] 2 mg PO DAILY 05/18/19 05/31/19 Sulfamethoxazole/Trimethoprim 1 tab PO DAILY 05/31/19 05/31/19 [Bactrim 400-80 mg Tablet] - Allergies Allergies/Adverse Reactions: Allergies Allergy/AdvReac Type Severity Reaction Status Date / Time adhesive tape Allergy Rash Verified 05/17/19 09:11 ceftazidime Allergy Rash Verified 05/17/19 09:11 doxorubicin HCl pegylated Allergy Hives Verified 05/17/19 09:11 lipo... * [From Doxil] doxycycline Allergy Rash Verified 05/17/19 09:11 acetaminophen [From Vicodin] AdvReac Nausea Verified 05/17/19 09:11 hydrocodone bitartrate * AdvReac Nausea Verified 05/17/19 09:11 [From Vicodin] Review of Systems - Constitutional Constitutional: reports: Fatigue, Weight stable (127). denies: Fever, Chills - Eyes Eyes: reports: Vision loss, Corrective lenses - Ears, Nose & Throat Ears, Nose & Throat: reports: Dental decay - Respiratory Respiratory: reports: Other (cold symptoms resolved). denies: SOB at rest - Gastrointestinal Gastrointestinal: reports: Early satiety. denies: Constipation, Diarrhea - Musculoskeletal Musculoskeletal: reports: Back pain (chronic) - Integumentary Integumentary: reports: Dryness, Pigment changes, Hair changes (thinning) - Neurological Neurological: reports: General weakness, Memory problems (STM) - Psychiatric Psychiatric: reports: Depression (worsening symptoms), Anxiety (pending new DX) - Hematologic/Lymphatic Hematologic/Lymphatic: reports: Anemia (hgb 8.8), Blood clots (improved thromphlebitis) - All Other Systems All Other Systems: reports: Reviewed and negative Physical Exam - Vital Signs Temperature: 36.5 C Pulse Rate: 66 Respiratory Rate: 18 Blood Pressure: 134/60 - Physical Exam General Appearance: positive: Alert, Anxious (with pending new DX) Eyes Bilateral: positive: Normal inspection, No scleral icterus ENT: positive: No signs of dehydration, Other (poor dentition; right jaw line not tender/swelling resolved) Neck: positive: No JVD, Trachea midline Cardiovascular: positive: Regular rate & rhythm Respiratory: positive: No respiratory distress Abdomen: positive: Non-tender, Soft, Nml bowel sounds Skin: positive: Dryness Extremities: positive: Pedal edema (trace to mid calf; support hose on), Other (LE palpated; not ridge of thrombophlebitis noted today; nontender) Neurologic/Psychiatric: positive: Oriented x3, Depressed mood/affect Palliative Care - POLST Patient has POLST: Yes POLST Status: DNR, Selective Treatment Pain: Pain improved, Comment (acute pain in LE resolved; acute pain in right jaw min.; mid thoracic pain controlled on current regimen of MS Contin 30 mg BID) Tiredness/Fatigue: Mild (1-3) Drowsiness/Sedation: Mild (1-3) Nausea: None Anorexia: None Dyspnea: None Depression: None (though in further discussion; is worsened in persistent sadness; grief;) Anxiety: None Feelings of wellbeing/Perceived Quality of Life: Good, Acceptable, Improved Sleep: Variable sleep pattern Constipation: No Performance Status: Patient is able to attend her own ADLs, I would put her at a PPS of 80%. She does get overtired and fatigued at times. She is pacing her activities - Palliative Care Discussion: Patient is expressing feelings of grief and loss, this is the first [place] without her mother, feeling somewhat sad and having some persistent feelings of sadness. Discussion regarding normalizing grief and loss, she is also feeling somewhat overwhelmed with pending biopsy for follow-up possible MDS. Patient kaia best by having information, I did review [facility] patient information on Web, as a resource. Also leukemia and lymphoma has a MDS component to it as well. Discussed as like multiple myeloma, there is a range of continuum in this disease, and will need further details to be able to discuss treatment options and prognosis. Patient is also scheduled for pending tooth extraction, and feels like many things are going on at the same time. We did discuss in the context of her depression, she is on a fairly low dose of her Effexor, and agreement will titrate to assist with management of her persistent depressive feelings.She reports her daughters are somewhat concerned as well, her goals have been to continue to hope for quantity and more time with family, recognizing her treatment has been palliative in nature. Results - Lab Results Lab results reviewed: Yes Impression and Recommendations - Palliative Care Impression: This is a eliecer 59-year-old woman who has refractory multiple myeloma, status post autologous/allogenic stem cell and post multiple lines of chemotherapy. She is currently responding to her current regimen, though now concern regarding persistent macrocytic anemia or MDS. She has responded to Xarelto treatment, with resolution of pain and swelling of her lower extremities. She does present with persistent depressive symptoms, with recent loss of her mother, pending work-up for MDS, and feeling somewhat overwhelmed. Palliative care to continue provide support for pain and symptom management and anticipatory guidance. Recommendations/Counseling Done: 1. Bilateral lower extremity acute pain. This is resolved with the treatment of Xarelto, she was diagnosed with superficial DVT. Reviewed continued treatment expected three months total. She does know to hold for her bone biopsy and tooth extraction, this is been reviewed with her oncologist. 2. Hypertension. Her blood pressure continues to be controlled on her current regimen, she was able to meet with her new PCP, no changes made it. She was to get lipid panel with her next labs, double checked, Dr. Maharaj sent orders, information to patient. 3. Chronic back pain. She is currently on MS Contin 30 mg twice daily has not had any exacerbation or recurrence of sciatica. She feels like her current regimen is working. Prescription provided, no untoward side effects and is using appropriately. 4. Depression. Patient does present with persistent depressive symptoms. Counseling provided regarding weighing benefits and burdens of increasing dosing, increase to 75 mg of Effexor, she will double her current dosing and we will reevaluate with next refill. Provided psychosocial support with patient's feelings of being overwhelmed with most recent series of events. Patient kaia best with information, referred to reputable resources, and anticipatory guidance provided. 5. Dental decay. Patient's yeah but did put him in the mandibular region abscess, has improved with treatment of antibiotics. This was prescribed by her oral surgeon. She is scheduled for surgery 06/30 to pull all her teeth, she will receive her dentures at that point in time. It is somewhat stressful as it is pending, and financially as well. She is looking forward though to having this over, they are considering restarting her Xgeva. 6. Advanced care planning. Patient does have POLST in place with DNA R and selective treatments. Patient's goals remain to continue to weigh benefits and burdens of treatments as they come along. She is to be worked up for MDS, has bone marrow biopsy scheduled. Provided luly gonzalez for 06/03 travel to [place]. Time Spent: 30 minutes with greater than 50% of this done in counseling and support regarding pending work-up for MDS, pain and symptom management, and counseling for adjustment illness and depression.
== END 2019-05-31 09:16 | disposition home or self-care (01) ==
LOC: PC 09:15
PROVIDERS: ATTEND Nurse Practitioner Adult Health
DX: Z51.5 Encounter for palliative care (principal); C90.02 Multiple myeloma in relapse; I80.03 Phlebitis and thrombophlebitis of superficial vessels of lower extremities, bilateral; I10 Essential (primary) hypertension; G89.29 Other chronic pain; F34.1 Dysthymic disorder; K02.9 Dental caries, unspecified; D53.9 Nutritional anemia, unspecified; Z79.899 Other long term (current) drug therapy; Z79.891 Long term (current) use of opiate analgesic; Z79.01 Long term (current) use of anticoagulants; Z66 Do not resuscitate
CPT/HCPCS: 99214

== ENCOUNTER 2019-06-14 08:56 | Outpatient (CLI) | payer MEDICARE ==
[2019-06-14 09:58] LABS: CHOL/HDL RATIO 2.6 (<4.4); CHOLESTEROL 196 mg/dL; HDL CHOLESTEROL 74 mg/dL; LDL CHOLESTEROL,CALCULATED 63 mg/dL; LDL/HDL RATIO 0.9 (<4.4); VLDL CHOLESTEROL 59 mg/dL
== END 2019-06-14 08:57 | disposition home or self-care (01) ==
LOC: LAB 08:56
PROVIDERS: ATTEND Family Medicine
DX: E78.5 Hyperlipidemia, unspecified (principal)
CPT/HCPCS: 36415; 80061; 83721

== ENCOUNTER 2019-07-04 12:49 | Outpatient (CLI) | payer MEDICARE | END 2019-07-04 12:50 | disposition home or self-care (01) | LOC: EMS 12:49 | PROVIDERS: ATTEND Surgery | DX: I46.9 Cardiac arrest, cause unspecified (principal) ==